=== PATIENT | male | born 1965 | race Caucasian/White ===

== ENCOUNTER → 2023-03-18 08:31 | Outpatient (CLI) | payer OTHER, MEDICAID, SELFPAY ==
--- NOTE | 2023-03-18 08:33 | DI.RAD.S_ITS ---
PROCEDURE: XR SHOULDER RT MIN 2V INDICATIONS: RIGHT SHOULDER PAIN TECHNIQUE: 3 or views of the shoulder were acquired. COMPARISON: None. FINDINGS: Bones: No fractures or dislocations. Mild acromioclavicular joint osteoarthritis. No suspicious bony lesions. Visualized ribs appear intact. Soft tissues: No suspicious soft tissue calcifications. IMPRESSION: No acute bony abnormality. Dictated by: Ger Hui M.D. on 03/18/2023 at 10:30 Approved by: Ger Hui M.D. on 03/18/2023 at 10:30
--- NOTE | 2023-03-18 08:33 | DI.RAD.S_ITS ---
PROCEDURE: XR SHOULDER LT MIN 2V INDICATIONS: LEFT SHOULDER PAIN TECHNIQUE: 3 views of the shoulder were acquired. COMPARISON: [facility], CR, XR SHOULDER RT MIN 2V, 03/18/2023, 9:12. FINDINGS: Bones: No fractures or dislocations. Mild acromioclavicular joint osteoarthritis. No suspicious bony lesions. Visualized ribs appear intact. Soft tissues: No suspicious soft tissue calcifications. IMPRESSION: No acute bony abnormality. Dictated by: Ger Hui M.D. on 03/18/2023 at 10:30 Approved by: Ger Hui M.D. on 03/18/2023 at 10:31
== END ==
PROVIDERS: PCP Nurse Practitioner; Referring Provider Anesthesiology; Visit Provider Anesthesiology
DX: M19.011 Primary osteoarthritis, right shoulder (principal); M19.012 Primary osteoarthritis, left shoulder; M25.512 Pain in left shoulder; M25.511 Pain in right shoulder
CPT/HCPCS: 73030; 99214

== ENCOUNTER → 2023-06-03 12:20 | Outpatient (CLI) | payer OTHER, MEDICAID, SELFPAY ==
--- NOTE | 2023-06-03 12:24 | DI.RAD.S_ITS ---
PROCEDURE: XR HIP W PEL IF DONE LT MIN 4V INDICATIONS: Bilateral hip pain TECHNIQUE: AP pelvis and lateral view of the hip acquired. COMPARISON: None. FINDINGS: Bones: No fracture or subluxation is seen. Mild DJD of both hips noted. Pelvic ring appears intact Soft tissues: No suspicious soft tissue densities. IMPRESSION: No acute findings Mild DJD of the hips Dictated by: Grayson Flowers M.D. on 06/03/2023 at 15:06 Approved by: Grayson Flowers M.D. on 06/03/2023 at 15:07
[2023-06-03 13:37] LABS: Add Manual Diff / Slide Review NO; Basophils Absolute Auto 0 /uL (0-100); Basophils Percent Auto 0.5 % (0-2); Eosinophils Absolute Auto 100 /uL (0-450); Eosinophils Percent Auto 1.3 % (2-4); Hematocrit 41.7 % (41-53); Hemoglobin 14.3 g/dL (13.5-17.5); Lymphocytes Absolute Auto 1700 /uL (1100-4500); Lymphocytes Percent Auto 30.6 % (25-40); Mean Corpuscular HGB Conc 34.3 % (30-36); Mean Corpuscular Hemoglobin 29.8 PG (26-34); Mean Corpuscular Volume 86.9 fL (80-100); Monocytes Absolute Auto 600 /uL (0-900); Monocytes Percent Auto 10.3 % (3-14); Neutrophils Absolute Auto 3100 /uL (1500-7000); Neutrophils Percent Auto 57.3 % (50-75); Platelet Count 171 X10^3/uL (150-400); Red Cell Distribution Width 13.5 % (11.6-14.8); White Blood Cell Count 5.4 X10^3/uL (4.5-11.0)
[2023-06-03 14:04] LABS: Alanine Aminotransferase 29 IU/L (<50); Albumin 4.7 g/dL (3.5-5.0); Albumin Globulin Ratio 1.5 (1.0-2.8); Alkaline Phosphatase 49 U/L (38-126); Aspartate Aminotransferase 43 IU/L (17-59); BUN Creatinine Ratio 21.8 (6-22); Bilirubin Total 0.6 mg/dL (0.2-1.3); Blood Urea Nitrogen 24 mg/dL (9-20); Calcium 9.8 mg/dL (8.4-10.2); Carbon Dioxide 22 mmol/L (22-32); Chloride 108 mmol/L (98-107); Cholesterol 156 mg/dL (140-199); Estimated Glomerular Filt Rate > 60 mL/min (>60); Globulin 3.2 g/dL (1.7-4.1); Glucose 126 mg/dL (70-100); HDL Cholesterol 39 mg/dL (40-60); HEMOLYSIS < 15 (0-50); LDL Cholesterol Calculated 83 mg/dL (<100); Potassium 4.3 mmol/L (3.4-5.1); Sodium 139 mmol/L (137-145); Total Protein 7.9 g/dL (6.3-8.2); Triglycerides 168 mg/dL (35-150)
[2023-06-03 14:14] LABS: Free T3, Triiodothyronine Free 4.29 pg/mL (2.77-5.27)
[2023-06-03 14:27] LABS: Thyroid Stimulating Hormone 2.72 uIU/mL (0.47-4.68)
[2023-06-03 14:29] LABS: Prostate Specific Antigen Scrn 1.47 ng/mL (0.1-4.0)
[2023-06-03 16:19] LABS: Creatinine Urine Random 169.2 mg/dL
[2023-06-03 16:29] LABS: Microalbumin Urine Random < 0.6 mg/dL (0-1.6)
[2023-06-03 17:06] LABS: HIV 1 & 2 Ab/Ag 4th Gen Combo NEGATIVE (NEGATIVE); Hep C Virus Ab w/Reflex Quant NEGATIVE s/c (NEGATIVE)
== END ==
LOC: LAB 12:23
PROVIDERS: PCP Nurse Practitioner; Referring Provider Nurse Practitioner; Visit Provider Nurse Practitioner
DX: Z00.00 Encounter for general adult medical examination without abnormal findings (principal); Z11.4 Encounter for screening for human immunodeficiency virus [HIV]; Z11.59 Encounter for screening for other viral diseases; Z12.5 Encounter for screening for malignant neoplasm of prostate; M25.551 Pain in right hip; M25.552 Pain in left hip
CPT/HCPCS: 36415; 73522; 80053; 80061; 82043; 82570; 84439; 84443; 84481; 85025; 86803; 87389; G0103

== ENCOUNTER 2023-06-22 08:00 | Emergency (ER) | payer OTHER, MEDICAID, SELFPAY ==
[2023-06-22 08:16] VITALS: BP 135/83; PULSE 72; RESP 18; TEMP 37; O2SAT 97
--- NOTE | 2023-06-22 08:21 | ED_ITS ---
HPI - General Adult General Chief complaint: Shortness of Breath/Dyspnea Stated complaint: L rib side pain when breathing/standing Time Seen by Provider: 06/22/23 08:14 History of Present Illness HPI narrative: Patient here for waxing and waning chronic daily left lower rib pain anteriorly. Patient states this pain has been there daily since 2007 when he slipped on//ice and landed full weight on left anterior ribs top of steps. He states he had x-rays and CT scans at that time, no broken bones. However in the past many weeks pain has progressed and gotten worse. He has not done anything to make it worse. No known injury recently, no repetitive stress or movement. When he do es walk/exercise he gets spasms in this area. It is reproducible, again reproducible. Denies any chest pain. He has not tried any medications for this. He did see primary care, Dr. Catai fonseca 2 weeks ago for 1st visit and wellness check for establishing a primary care. He moved here from [facility]. Laboratory studies were done and essentially unremarkable. I have reviewed them. Patient had CBC and CMP. Please see medical chart from that visit/laboratory results. Denies history of cancer Related Data Home Medications Medication Instructions Recorded Confirmed [facility] Remedy See Rx Instructions .Route .COMPLEX 03/03/23 06/30/23 acetaminophen 500 mg tablet 1,000 mg PO TID PRN pain 03/03/23 06/30/23 (Tylenol Extra Strength) ibuprofen 400 mg tablet 400 mg PO Q8H PRN pain 03/03/23 06/30/23 Previous Rx's Medication Instructions Recorded baclofen 5 mg tablet 5 mg PO BEDTIME #90 tabs 03/03/23 cetirizine 10 mg tablet (Allergy 10 mg PO DAILY #90 tabs 03/03/23 Relief (cetirizine)) fluticasone propionate 50 1 spray intranasal DAILY #16 grams 05/31/23 mcg/actuation nasal spray,suspension Disabled Parking Permit See Rx Instructions .Route 06/03/23 .COMPLEX #1 ea hydrocodone 5 mg-acetaminophen 325 1 tab PO Q6H PRN pain #24 tabs 06/22/23 mg tablet lorazepam 0.5 mg tablet 0.5 mg PO TID PRN anxiety #30 tabs 06/22/23 dronabinol 10 mg capsule 10 mg PO TID PRN pain #90 caps 06/30/23 fenofibrate 160 mg tablet 160 mg PO DAILY #90 tabs 06/30/23 prednisone 10 mg tablets in a dose See Rx Instructions PO PER PKG DIR 06/30/23 pack #48 ea tamsulosin 0.4 mg capsule 0.4 mg PO BID #180 caps 06/30/23 Allergies Allergy/AdvReac Type Severity Reaction Status Date / Time No Known Drug Allergies Allergy Unverified 06/10/23 16:05 Review of Systems Review of Systems Narrative: GENERAL: negative chills, fatigue, malaise, fever, sweats. HEENT: negative sinus pain, ear pain, sore throat RESPIRATORY: negative dyspnea, cough CARDIOVASCULAR: negative chest pain, palpitations GASTROINTESTINAL: negative nausea, vomiting, abdominal pain : negative dysuria, frequency, hematuria MUSCULOSKELETAL: Positive muscle or bony pain SKIN: negative rash, skin lesions NEUROLOGIC: negative weakness, numbness ROS Unobtainable: All systems reviewed & are unremarkable except as noted in HPI and below Patient History Medical History Suspected lung cancer Bilateral hip pain Greater trochanteric bursitis of both hips Right hip pain Left hip pain Arthritis of left acromioclavicular joint Impingement of right shoulder Bilateral shoulder pain Social History Smoking Status: Former smoker Exam Narrative Exam Narrative: GENERAL: in no distress, not toxic not dyspneic HEAD: Normocephalic. EYES: Pupils equal round ENT: Mucous membranes moist. NECK: Trachea midline. CARDIOVASCULAR: Regular rate and rhythm RESPIRATORY: Clear to auscultation. Breath sounds equal bilaterally. No wheezes, rales, or rhonchi. There is reproducible left lower anterior rib tenderness. It is the last rib border on left anteriorly. No pain with deep breath. No crepitus. No CVA tenderness. GASTROINTESTINAL: Abdomen soft, non-tender, abdomen is soft, nontender. No left upper quadrant tenderness on deep palpation. Bowel sounds are present. No peritoneal signs. EXTREMITIES: No gross deformities. BACK: No flank tenderness. NEURO: AOx4. SKIN: Warm and dry PSYCH: Not anxious, is cooperative Initial Vital Signs Initial Vital Signs: Vital Signs Temperature 98.6 F 06/22/23 08:16 Pulse Rate 72 06/22/23 08:16 Respiratory Rate 18 06/22/23 08:16 Blood Pressure 135/83 06/22/23 08:16 Pulse Oximetry 97 06/22/23 08:16 Oxygen Delivery Method Room Air 06/22/23 08:16 Course Orders Ordered: Discontinued Medications Ketorolac Tromethamine (Ketorolac 30 Mg/Ml Vial) 30 mg IM NOW ONE Stop: 06/22/23 08:23 Last Admin: 06/22/23 08:28 Dose: 30 mg Documented By: RICHARD Vital Signs Vital signs: Vital Signs - 8 hr 06/22/23 08:16 06/22/23 09:25 06/22/23 09:26 Temperature 98.6 F Pulse Rate 72 64 Respiratory Rate 18 Blood Pressure 135/83 141/80 H Pulse Oximetry 97 96 Oxygen Delivery Method Room Air Room Air 06/22/23 09:26 Temperature Pulse Rate 64 Respiratory Rate 18 Blood Pressure Pulse Oximetry 96 Oxygen Delivery Method Room Air Medical Decision Making Imaging Data CT chest abdomen pelvis: Radiologist's Impression: [place] [address] CT Scan Report Signed Patient: Asher Hernández MR#: [id number] : 1965 Acct:[id number] Age/Sex: 58 / M Date of Service: 06/22/23 Loc: ED Accession Number: [id number] Procedure: CT chest abd pel wo con Ordering Provider: Bijan Beckford MD PROCEDURE: CT CHEST ABD PEL WO CON INDICATIONS: Left lower rib pain upper left abdominal pain TECHNIQUE: After the administration of oral contrast, 5 mm thick sections acquired from the lung apices to the symphysis pubis. 5 mm thick coronal and sagittal reformats acquired, with additional 7 mm coronal MIP reformats through the lungs. For radiation dose reduction, the following was used: automated exposure control, adjustment of mA and/or kV according to patient size. COMPARISON: None. FINDINGS: Image quality: Diagnostic. CHEST: Lower Neck: No enlarged lymph nodes. Thyroid: No thyroid nodules which require sonographic follow up, per consensus guidelines. Axillae: No enlarged lymph nodes. Chest Wall: Unremarkable. Bones: Unremarkable. Lungs and Pleura: There are multiple pulmonary nodules present. All nodules will be described on series 5. 1. Small spiculated mass, right apex, measuring 11 mm in diameter. Suspect primary bronchogenic carcinoma. Reference image 52. 2. 3 mm pulmonary nodule, right apex, image 55. 3. 3 mm right upper lobe pulmonary nodule, image 123. 4. 3 mm Paula fissural nodule, right lower lobe, image 134. 5. 6 mm pulmonary nodule, right lower lobe, image 208. 6. 2 mm pulmonary nodule, left upper lobe, image 65. There is mild emphysematous change. No focal airspace consolidation. Heart: Heart size is normal. No pericardial effusion. Thoracic Vessels: The aorta and pulmonary arteries demonstrate normal size. Mediastinum and Soraya: No enlarged lymph nodes. Esophagus: No wall thickening. No hiatal hernia. ABDOMEN: Liver: No solid mass. Gallbladder: No radiopaque gallstones or wall thickening. Biliary ducts: No biliary dilation. Pancreas: No ductal dilation. There are multiple small poorly defined low- density lesions present in the pancreas. Spleen: Borderline splenomegaly. Adrenal Glands: No adrenal nodules. Kidneys and Ureters: No hydronephrosis. No solid mass. No complex renal cystic lesion which requires follow up. Stomach and Bowel: Normal colonic caliber, without significant wall thickening. Peritoneum: No abnormal intraperitoneal fluid. No free air. Ventral Wall: No hernia. Abdominal Nodes: No retroperitoneal or mesenteric adenopathy by size criteria. Vessels: Aorta and inferior vena cava are normal in size. PELVIS: Pelvic Organs: Unremarkable. Bladder: Unremarkable. Pelvic Nodes: No enlarged lymph nodes. Miscellaneous: No inguinal hernias are seen. Bones: No aggressive osseous abnormality. Canal stenosis at L2-L3 and L3-L4. IMPRESSION: 1. There is mild centrilobular emphysema. 2. Findings are highly suspicious for a 1.1 cm primary bronchogenic carcinoma of the right apex. 3. Multiple other small indeterminate bilateral pulmonary nodules are identified. 4. No bony lesion identified. 5. Multiple small ill-defined low-density lesions in the pancreas. Comment: Recommend nonemergent PET-CT. Also recommend nonemergent pancreas protocol CT or MRI to evaluate the pancreas, as well as evaluate the liver in a patient with potential malignancy. Dictated by: Pa Galicia M.D. on 06/22/2023 at 9:10 Approved by: Pa Galicia M.D. on 06/22/2023 at 9:22 [facility] Narrative Medical decision making narrative: Patient here for waxing and waning chronic daily left lower rib pain anteriorly. Patient states this pain has been there daily since 2007 when he slipped on//ice and landed full weight on left anterior ribs top of steps. He states he had x-rays and CT scans at that time, no broken bones. However in the past many weeks pain has progressed and gotten worse. He has not done anything to make it worse. No known injury recently, no repetitive stress or movement. When he does walk/exercise he gets spasms in this area. It is reproducible, again reproducible. Denies any chest pain. He has not tried any medications for this. He did see primary care, Dr. Catia fonseca 2 weeks ago for 1st visit and wellness check for establishing a primary care. He moved here from [facility]. Laboratory studies were done and essentially unremarkable. I have reviewed them. Patient had CBC and CMP. Please see medical chart from that visit/laboratory results. Denies history of cancer After history and exam Toradol CT chest abdomen pelvis without contrast. No blood work indicated at this time. Just had 2 weeks ago and unremarkable. appropriate for noncontrast CT MDM Medical records reviewed: Patient labs from June 03 2023 Differential considered: Includes but not limited to lytic lesion metastatic bone cancer, costochondritis, chronic rib pain secondary to trauma Lab Test results independently reviewed as above. Pertinent findings: Laboratory results CBC CMP from June 03, 2023 from primary care visit Imaging studies independently reviewed: CT abdomen pelvis concerning for bronchogenic carcinoma of the lung Consultations: 9:[address] Kvng Wylie, oncology services. I will give referral to him and primary care Catia fonseca will also need to give referral for his services. No blood work indicated this time. Patient will need outpatient PET scan. Treatments: Toradol Re-evaluations: 9:40 a.m.. Reviewed results with patient of CT imaging concerning for lung cancer on the right side. Incidental finding as his pain was on the left side. At this time, he understands further workup will be needed for more detailed information. His is a nurse. They will call primary care for referral to Dr. Wylie, oncology services. I have placed referral as well. I will prescribe pain medication as well. Return precautions reviewed. He does understand he will need extensive outpatient workup. No further workup indicated at this time in the emergency department. He will need a PET scan. He does understand this is concerning for lung cancer. He did stop smoking cigarettes in 1999. Discussion: Appropriate for discharge home. No blood work indicated this time. Oncology service was contacted. He does have primary care to help for referral and further outpatient workup for lung cancer. Return precautions reviewed. He desires discharge home. Appropriate for short course of opiate pain medication for likely cancer related pain Diagnosis: Rib pain/lung mass Discharge Plan Departure Patient Disposition: Home Clinical Impression: Rib pain on left side, Mass of right lung Instructions: DI for Lung Cancer Activity Restrictions/Additional Instructions: Your CT scan results reveal concern for lung cancer on the right side. The pain on the left rib does not show any bone cancer. Short course of pain medication has been provided for you. Please please please call your family doctor for referral to Dr. Kvng Wylie, oncology services. We have placed a referral in as well. However family doctor may need to do this as well. More extensive testing and blood work and PET scan will be needed for further information and details. Do not smoke. Return if worse if any questions or concerns. Prescriptions: New hydrocodone-acetaminophen 5-325 mg tablet 1 tab PO Q6H PRN (Reason: pain) Qty: 24 0RF No Action fluticasone propionate 50 mcg/actuation spray,suspension 1 spray intranasal DAILY Qty: 16 3RF Rx Instructions: administer into each nostril daily lorazepam 0.5 mg tablet 0.5 mg PO TID PRN (Reason: anxiety) Qty: 30 0RF Disabled Parking Permit See Rx Instructions .ROUTE .COMPLEX Qty: 1 0RF Rx Instructions: Temporary disabled parking placard baclofen 5 mg tablet 5 mg PO BEDTIME Qty: 90 3RF Rx Instructions: Take 1 tab at bedtime daily ibuprofen 400 mg tablet 400 mg PO Q8H PRN (Reason: pain) acetaminophen [Tylenol Extra Strength] 500 mg tablet 1,000 mg PO TID PRN (Reason: pain) Rx Instructions: NTE 3000mg/24 hours cetirizine [Allergy Relief (cetirizine)] 10 mg tablet 10 mg PO DAILY Qty: 90 3RF Rx Instructions: Take daily for allergies [facility] Rem[facility] See Rx Instructions .ROUTE .COMPLEX Rx Instructions: Per package instructions - Pastilles OR Liquid; dronabinol 10 mg capsule 10 mg PO TID PRN (Reason: pain) Qty: 90 3RF Rx Instructions: Take 1 cap three times per day as needed for pain, equivalent to Nabilone dosing. prednisone 10 mg tablets,dose pack See Rx Instructions PO PER PKG DIR Qty: 48 0RF Rx Instructions: Days 1-4: 40 mg PO before breakfast Days 5-8: 30 mg PO before breakfast Days 9-12: 20 mg PO before breakfast Days 13-17: 10 mg PO before breakfast, on day 13 it is okay to re-start Advil, Ibuprofen, Aleve, Naproxen, or other non-steroidal anti-inflammatory medication) Days 18-19: 5 mg per day (only 0.5 tablet per day) tamsulosin 0.4 mg capsule 0.4 mg PO BID Qty: 180 3RF fenofibrate 160 mg tablet 160 mg PO DAILY Qty: 90 3RF Referrals: Catia Fonseca ARNP [Primary Care Provider] - Kvng Wylie MD [Physician] - Stand Alone Forms: Patient Portal/API
[2023-06-22] MEDS: KETOROLAC 30 MG/ML VIAL IM (08:28)
[2023-06-22 09:25] VITALS: PULSE 64; O2SAT 96
[2023-06-22 09:26] VITALS: BP 141/80; PULSE 64; RESP 18; O2SAT 96
== END 2023-06-22 09:54 | disposition home or self-care (01) ==
PROVIDERS: Emergency Provider Emergency Medicine; PCP Nurse Practitioner
DX: R07.81 Pleurodynia (principal); R91.8 Other nonspecific abnormal finding of lung field
CPT/HCPCS: 71250; 74176; 96372; 99284; J1885

== ENCOUNTER → 2023-07-13 15:49 | Outpatient (CLI) | payer OTHER, MEDICAID, SELFPAY ==
--- NOTE | 2023-07-13 15:51 | DI.CT.S_ITS ---
PROCEDURE: CT ABDOMEN PANCREATIC PROTOCOL INDICATIONS: Suspicious masses liver and pancreas, abnormal CT TECHNIQUE: Both before and after the administration of intravenous contrast, 3 mm thick pancreatic-phase images acquired from the diaphragm to the iliac crests. 3 mm thick coronal and sagittal reformats were performed. For radiation dose reduction, the following was used: automated exposure control, adjustment of mA and/or kV according to patient size. COMPARISON: Merged With [facility], CT, CT CHEST ABD PEL WO CON, 06/22/2023, 8:27. FINDINGS: Image quality: Diagnostic. Lower chest: Unremarkable. ABDOMEN: Pancreas: Pancreatic duct is not well seen. Abnormal hypoenhancement of the body and tail the pancreas. Trace peripancreatic stranding. Small hypoenhancing focus in the body of the pancreas, (9/49). It additional ill-defined hypoenhancing focus at the pancreatic neck, (9/48). The portal vein confluence is attenuated. Liver: No solid mass. Gallbladder: No radiopaque gallstones or wall thickening. Biliary ducts: No biliary dilation. Adrenal Glands: No nodules. Spleen: Size is within normal limits. Kidneys and Ureters: No hydronephrosis. No solid mass. No complex renal cystic lesion which requires follow up. Stomach and Bowel: Normal colonic caliber, without significant wall thickening. Peritoneum: No abnormal intraperitoneal fluid. No free air. Ventral Wall: No hernia. Abdominal Nodes: No retroperitoneal or mesenteric adenopathy by size criteria. Vessels: Aorta and inferior vena cava are normal in size. Bones: No aggressive osseous abnormality. IMPRESSION: 1. Hypoenhancement of the body and tail the pancreas. This could be due to pancreatitis. Recommend correlation with serum lipase. 2. Concern for hypoenhancing focus at the neck of the pancreas. The portal vein confluence is attenuated. This raises the possibility of an occult lesion. Additional small cysts suspected in the body of the pancreas. MRI pancreas would be helpful to further characterize this suspected cyst in the pancreatic duct. 3. No focal hepatic lesion demonstrated. No adenopathy. Dictated by: Stpehen Cook M.D. on 07/13/2023 at 23:04 Approved by: Stephen Cook M.D. on 07/13/2023 at 23:24
== END ==
PROVIDERS: PCP Nurse Practitioner; Referring Provider Nurse Practitioner; Visit Provider Nurse Practitioner
DX: K86.89 Other specified diseases of pancreas (principal); R68.89 Other general symptoms and signs; R91.8 Other nonspecific abnormal finding of lung field; C22.9 Malignant neoplasm of liver, not specified as primary or secondary
CPT/HCPCS: 74170; Q9967

== ENCOUNTER 2023-07-14 16:03 | Emergency (ER) | payer OTHER, MEDICAID, SELFPAY ==
[2023-07-14] VITALS (10 sets, daily range): BP systolic 119–150; BP diastolic 75–84; PULSE 53–72; RESP 13–21; TEMP 36.6; O2SAT 97–100; BMI 31.6
--- NOTE | 2023-07-14 16:33 | ED.GENADULT ---
HPI - General Adult <Alfonzo Mariee DO - Last Filed: 07/17/23 17:56> General Chief complaint: Abdominal Pain Stated complaint: sent by MD for pancreatitis Time Seen by Provider: 07/14/23 16:10 Source: patient Mode of arrival: Ambulatory History of Present Illness HPI narrative: Patient is a 58-year-old male. Is here for evaluation of potential pancreatitis. Patient was seen here in the emergency department approximately 4 weeks ago[address] Had a [address] scan of his chest abdomen and pelvis. Was complaining of left sided abdomen/left upper quadrant abdominal pain that actually has been present for many months/years. During that CT scan was noticed that he would findings on the CT scan that were concerning about lung cancer. He was scheduled for a PET scan later this week. He has not currently undergoing any treatment just in the workup face. He has had continued pain in his left upper abdomen. It is worse with eating. No change in bowel habits. No urinary symptoms. Some nausea but no vomiting. No fevers. Had a CT scan performed yesterday by his primary doctor. It showed findings that were somewhat concerning for pancreatitis versus an occult mass. He would normal LFTs but no lipase was drawn. He was sent to the emergency department today because of pancreatitis. Related Data Home Medications Medication Instructions Recorded Confirmed [facility] See Rx Instructions .Route .COMPLEX 03/03/23 07/14/23 acetaminophen 500 mg tablet 1,000 mg PO TID PRN pain 03/03/23 07/14/23 (Tylenol Extra Strength) ibuprofen 400 mg tablet 400 mg PO Q8H PRN pain 03/03/23 07/14/23 Previous Rx's Medication Instructions Recorded baclofen 5 mg tablet 5 mg PO BEDTIME #90 tabs 03/03/23 cetirizine 10 mg tablet (Allergy 10 mg PO DAILY #90 tabs 03/03/23 Relief (cetirizine)) fluticasone propionate 50 1 spray intranasal DAILY #16 grams 05/31/23 mcg/actuation nasal spray,suspension Disabled Parking Permit See Rx Instructions .Route 06/03/23 .COMPLEX #1 ea hydrocodone 5 mg-acetaminophen 325 1 tab PO Q6H PRN pain #24 tabs 06/22/23 mg tablet dronabinol 10 mg capsule 10 mg PO TID PRN pain #90 caps 06/30/23 fenofibrate 160 mg tablet 160 mg PO DAILY #90 tabs 06/30/23 prednisone 10 mg tablets in a dose See Rx Instructions PO PER PKG DIR 06/30/23 pack #48 ea tamsulosin 0.4 mg capsule 0.4 mg PO BID #180 caps 06/30/23 dronabinol 2.5 mg capsule 10 mg (4 x 2.5 mg) PO TID nausea 07/08/23 and vomiting 30 days #360 caps lorazepam 0.5 mg tablet 0.5 mg PO TID PRN anxiety #30 tabs 07/08/23 pantoprazole 20 mg tablet,delayed 20 mg PO DAILY #90 tabs 07/08/23 release hydrocodone 5 mg-acetaminophen 325 1 tab PO Q8H PRN pain #14 tabs 07/14/23 mg tablet hydromorphone 2 mg tablet 2 mg PO Q4-6H PRN pain #180 tabs 07/15/23 ondansetron 4 mg disintegrating See Rx Instructions .Route 07/15/23 tablet .COMPLEX PRN nausea and vomiting #180 tabs gabapentin 300 mg capsule 300 mg PO TID PRN pain #180 caps 07/16/23 hydromorphone 4 mg tablet 2 mg (1/2 x 4 mg) PO Q4-6H PRN 07/16/23 pain #90 tabs Allergies Allergy/AdvReac Type Severity Reaction Status Date / Time No Known Drug Allergies Allergy Unverified 06/10/23 16:05 Review of Systems <Alfonzo Mariee DO - Last Filed: 07/17/23 17:56> Review of Systems Narrative: See HPI Patient History <Alfonzo Mairee DO - Last Filed: 07/17/23 17:56> Medical History GERD (gastroesophageal reflux disease) Suspected lung cancer Bilateral hip pain Greater trochanteric bursitis of both hips Right hip pain Left hip pain Arthritis of left acromioclavicular joint Impingement of right shoulder Bilateral shoulder pain Social History Smoking Status: Former smoker Smoking Status: Former smoker tobacco type: cigarettes alcohol intake frequency: 0-2 drinks per day Substance Use Type: marijuana Exam <Alfonzo Mariee DO - Last Filed: 07/17/23 17:56> Initial Vital Signs Initial Vital Signs: Vital Signs Temperature 97.8 F 07/14/23 16:10 Pulse Rate 72 07/14/23 16:10 Respiratory Rate 16 07/14/23 16:10 Blood Pressure 125/82 07/14/23 16:10 Pulse Oximetry 99 07/14/23 16:10 Oxygen Delivery Method Room Air 07/14/23 16:10 Const General: cooperative and No ill appearing HENMT Head: normal to inspection and normocephalic Resp Effort & Inspection: normal respiratory effort Cardio Rate: regular rate GI Inspection: normal to inspection and non-distended Palpation: soft, No firm, No guarding and tender (Left upper quadrant) Skin General: no rashes or lesions noted Neuro General: patient alert and patient awake Extrem General: normal to inspection and capillary refill normal <Shabana Phillips MD - Last Filed: 07/15/23 00:57> Initial Vital Signs Initial Vital Signs: Vital Signs Temperature 97.8 F 07/14/23 16:10 Pulse Rate 72 07/14/23 16:10 Respiratory Rate 16 07/14/23 16:10 Blood Pressure 125/82 07/14/23 16:10 Pulse Oximetry 99 07/14/23 16:10 Oxygen Delivery Method Room Air 07/14/23 16:10 Course <Alfonzo Mariee DO - Last Filed: 07/17/23 17:56> Orders Ordered: Discontinued Medications Hydrocodone Bitart/Acetaminophen (Hydrocodone/Acet 10/325 Tablet) 1 tab PO NOW ONE Stop: 07/14/23 16:36 Last Admin: 07/14/23 16:55 Dose: 1 tab Documented By: SPF Hydrocodone Bitart/Acetaminophen (Hydrocodone/Acet 5/325 Prepack) 1 bottle MISC DIRECTED ONE Stop: 07/14/23 22:03 Last Admin: 07/14/23 22:14 Dose: 1 bottle Documented By: AB Alprazolam (Alprazolam 0.25 Mg Tablet) 0.25 mg PO NOW ONE Stop: 07/14/23 16:36 Last Admin: 07/14/23 16:55 Dose: 0.25 mg Documented By: SPF Droperidol (Droperidol 5 Mg/2 Ml Vial) 2.5 mg IV NOW ONE Stop: 07/14/23 21:56 Last Admin: 07/14/23 22:01 Dose: 2.5 mg Documented By: EDWARD Hydromorphone HCl (Hydromorphone 1 Mg Inj) 1 mg IV NOW ONE Stop: 07/14/23 17:53 Last Admin: 07/14/23 17:56 Dose: 1 mg Documented By: ANU Sodium Chloride (Normal Saline 0.9%) 1,000 mls @ 1,000 mls/hr IV BOLUS ONE Stop: 07/14/23 17:12 Last Infusion: 07/14/23 17:56 Dose: Infused Documented By: Admin: 07/14/23 17:00 Dose: 1,000 mls/hr Documented By: ANU Lorazepam (Lorazepam 2 Mg/Ml Inj) 2 mg IV NOW ONE Stop: 07/14/23 18:35 Last Admin: 07/14/23 19:40 Dose: 2 mg Documented By: RODRIGO Lorazepam (Lorazepam 2 Mg/Ml Inj) 1 mg IV NOW ONE Stop: 07/14/23 20:01 Last Admin: 07/14/23 20:04 Dose: 1 mg Documented By: EDWARD Ondansetron HCl (Ondansetron 4 Mg/2 Ml Inj) 4 mg IV NOW ONE Stop: 07/14/23 16:52 Last Admin: 07/14/23 16:54 Dose: 4 mg Documented By: ANU Vital Signs Vital signs: Vital Signs - 8 hr 07/14/23 17:00 07/14/23 17:00 07/14/23 17:30 Pulse Rate 53 L 53 L Respiratory Rate 13 14 Blood Pressure 124/75 Pulse Oximetry 97 98 Oxygen Delivery Method Room Air 07/14/23 18:00 07/14/23 18:00 07/14/23 19:29 Pulse Rate 53 L 63 Respiratory Rate 14 21 Blood Pressure 134/81 Pulse Oximetry 100 99 Oxygen Delivery Method Room Air Room Air 07/14/23 19:30 07/14/23 19:30 07/14/23 21:45 Pulse Rate 57 L Respiratory Rate 17 Blood Pressure 119/75 139/82 Pulse Oximetry 99 Oxygen Delivery Method 07/14/23 21:45 07/14/23 22:00 07/14/23 22:00 Pulse Rate 53 L 59 L Respiratory Rate 18 18 Blood Pressure 150/84 H Pulse Oximetry 98 97 Oxygen Delivery Method <Shabana Phillips MD - Last Filed: 07/15/23 00:57> Orders Ordered: Discontinued Medications Hydrocodone Bitart/Acetaminophen (Hydrocodone/Acet 10/325 Tablet) 1 tab PO NOW ONE Stop: 07/14/23 16:36 Last Admin: 07/14/23 16:55 Dose: 1 tab Documented By: ANU Hydrocodone Bitart/Acetaminophen (Hydrocodone/Acet 5/325 Prepack) 1 bottle MISC DIRECTED ONE Stop: 07/14/23 22:03 Last Admin: 07/14/23 22:14 Dose: 1 bottle Documented By: Alprazolam (Alprazolam 0.25 Mg Tablet) 0.25 mg PO NOW ONE Stop: 07/14/23 16:36 Last Admin: 07/14/23 16:55 Dose: 0.25 mg Documented By: ANU Droperidol (Droperidol 5 Mg/2 Ml Vial) 2.5 mg IV NOW ONE Stop: 07/14/23 21:56 Last Admin: 07/14/23 22:01 Dose: 2.5 mg Documented By: EDWARD Hydromorphone HCl (Hydromorphone 1 Mg Inj) 1 mg IV NOW ONE Stop: 07/14/23 17:53 Last Admin: 07/14/23 17:56 Dose: 1 mg Documented By: ANU Sodium Chloride (Normal Saline 0.9%) 1,000 mls @ 1,000 mls/hr IV BOLUS ONE Stop: 07/14/23 17:12 Last Infusion: 07/14/23 17:56 Dose: Infused Documented By: Admin: 07/14/23 17:00 Dose: 1,000 mls/hr Documented By: ANU Lorazepam (Lorazepam 2 Mg/Ml Inj) 2 mg IV NOW ONE Stop: 07/14/23 18:35 Last Admin: 07/14/23 19:40 Dose: 2 mg Documented By: RODRIGO Lorazepam (Lorazepam 2 Mg/Ml Inj) 1 mg IV NOW ONE Stop: 07/14/23 20:01 Last Admin: 07/14/23 20:04 Dose: 1 mg Documented By: EDWARD Ondansetron HCl (Ondansetron 4 Mg/2 Ml Inj) 4 mg IV NOW ONE Stop: 07/14/23 16:52 Last Admin: 07/14/23 16:54 Dose: 4 mg Documented By: ANU Vital Signs Vital signs: Vital Signs - 8 hr 07/14/23 17:00 07/14/23 17:00 07/14/23 17:30 Pulse Rate 53 L 53 L Respiratory Rate 13 14 Blood Pressure 124/75 Pulse Oximetry 97 98 Oxygen Delivery Method Room Air 07/14/23 18:00 07/14/23 18:00 07/14/23 19:29 Pulse Rate 53 L 63 Respiratory Rate 14 21 Blood Pressure 134/81 Pulse Oximetry 100 99 Oxygen Delivery Method Room Air Room Air 07/14/23 19:30 07/14/23 19:30 07/14/23 21:45 Pulse Rate 57 L Respiratory Rate 17 Blood Pressure 119/75 139/82 Pulse Oximetry 99 Oxygen Delivery Method 07/14/23 21:45 07/14/23 22:00 07/14/23 22:00 Pulse Rate 53 L 59 L Respiratory Rate 18 18 Blood Pressure 150/84 H Pulse Oximetry 98 97 Oxygen Delivery Method Medical Decision Making <Alfonzo Mariee, - Last Filed: 07/17/23 17:56> Lab Data Lab results reviewed: Yes I reviewed the patient's lab results. 07/14/23 16:35 07/14/23 16:35 Labs: Lab Results 07/14/23 Range/Units 16:35 WBC 6.0 (4.5-11.0) X10^3/uL RBC 4.78 (4.5-5.9) X10^6/uL Hgb 14.1 (13.5-17.5) g/dL Hct 41.4 (41-53) % MCV 86.6 (80-100) fL MCH 29.5 (26-34) PG MCHC 34.1 (30-36) % RDW 14.0 (11.6-14.8) % Plt Count 157 (150-400) X10^3/uL Neut % (Auto) 62.0 (50-75) % Lymph % (Auto) 26.4 (25-40) % Tucker % (Auto) 10.1 (3-14) % Eos % (Auto) 1.1 L (2-4) % Baso % (Auto) 0.4 (0-2) % Neut # (Auto) 3700 (8394-0918) /uL Lymph # (Auto) 1600 (4850-0168) /uL Tucker # (Auto) 600 (0-900) /uL Eos # (Auto) 100 (0-450) /uL Baso # (Auto) 0 (0-100) /uL Sodium 138 (137-145) mmol/L Potassium 4.5 (3.4-5.1) mmol/L Chloride 109 H (98-107) mmol/L Carbon Dioxide 24 (22-32) mmol/L BUN 19 (9-20) mg/dL Creatinine 0.93 (0.66-1.25) mg/dL Estimated GFR > 60 (>60) mL/min BUN/Creatinine Ratio 20.4 (6-22) Glucose 108 H (70-100) mg/dL Calcium 9.2 (8.4-10.2) mg/dL Total Bilirubin 0.8 (0.2-1.3) mg/dL AST 36 (17-59) IU/L ALT 26 (<50) IU/L Alkaline Phosphatase 40 (38-126) U/L Total Protein 7.5 (6.3-8.2) g/dL Albumin 4.5 (3.5-5.0) g/dL Globulin 3.0 (1.7-4.1) g/dL Albumin/Globulin Ratio 1.5 (1.0-2.8) Lipase 553 H (23-300) U/L Imaging Data US - abdomen: Radiologist's Impression: PROCEDURE: US ABDOMEN LIMITED INDICATIONS: Pancreatitis versus pancreatic mass on CT scan TECHNIQUE: Real-time focused scanning was performed of the abdomen, with image documentation. COMPARISON: [facility], CT, CT ABDOMEN PANCREATIC PROTOCOL, 07/13/2023, 16:24. [facility], CT, CT CHEST ABD PEL WO CON, 06/22/2023, 8:27. FINDINGS: Liver measures 15.5 cm with mild increased steatosis. Gallbladder is unremarkable. Wall thickness measures 1.7 mm. Common bile duct measures 2.3 mm. IMPRESSION: Mild hepatic steatosis. Pancreas is not visualized. MDM Narrative Medical decision making narrative: Patient does have left upper quadrant abdominal pain that does seem to be getting worse with eating. His lipase is slightly elevated but not completely convincing for pancreatitis. Review of the CT scan yesterday was not definitive for pancreatitis. Given his current lung issues there is a higher concern that this is an occult lesion. His right upper quadrant ultrasound today is unremarkable. His LFTs are unremarkable. Plan will be to obtain an MR with pancreatic protocol. Care turned over to Dr. Phillpis to follow-up and disposition. <Shabana Phillips MD - Last Filed: 07/15/23 00:57> Lab Data Labs: Lab Results 07/14/23 Range/Units 16:35 WBC 6.0 (4.5-11.0) X10^3/uL RBC 4.78 (4.5-5.9) X10^6/uL Hgb 14.1 (13.5-17.5) g/dL Hct 41.4 (41-53) % MCV 86.6 (80-100) fL MCH 29.5 (26-34) PG MCHC 34.1 (30-36) % RDW 14.0 (11.6-14.8) % Plt Count 157 (150-400) X10^3/uL Neut % (Auto) 62.0 (50-75) % Lymph % (Auto) 26.4 (25-40) % Tucker % (Auto) 10.1 (3-14) % Eos % (Auto) 1.1 L (2-4) % Baso % (Auto) 0.4 (0-2) % Neut # (Auto) 3700 (6940-1217) /uL Lymph # (Auto) 1600 (3790-8559) /uL Tucker # (Auto) 600 (0-900) /uL Eos # (Auto) 100 (0-450) /uL Baso # (Auto) 0 (0-100) /uL Sodium 138 (137-145) mmol/L Potassium 4.5 (3.4-5.1) mmol/L Chloride 109 H (98-107) mmol/L Carbon Dioxide 24 (22-32) mmol/L BUN 19 (9-20) mg/dL Creatinine 0.93 (0.66-1.25) mg/dL Estimated GFR > 60 (>60) mL/min BUN/Creatinine Ratio 20.4 (6-22) Glucose 108 H (70-100) mg/dL Calcium 9.2 (8.4-10.2) mg/dL Total Bilirubin 0.8 (0.2-1.3) mg/dL AST 36 (17-59) IU/L ALT 26 (<50) IU/L Alkaline Phosphatase 40 (38-126) U/L Total Protein 7.5 (6.3-8.2) g/dL Albumin 4.5 (3.5-5.0) g/dL Globulin 3.0 (1.7-4.1) g/dL Albumin/Globulin Ratio 1.5 (1.0-2.8) Lipase 553 H (23-300) U/L MDM Narrative Medical decision making narrative: Patient does have left upper quadrant abdominal pain that does seem to be getting worse with eating. His lipase is slightly elevated but not completely convincing for pancreatitis. Review of the CT scan yesterday was not definitive for pancreatitis. Given his current lung issues there is a higher concern that this is an occult lesion. His right upper quadrant ultrasound today is unremarkable. His LFTs are unremarkable. Plan will be to obtain an MR with pancreatic protocol. Care turned over to Dr. Phillips to follow-up and disposition. Dr Phillips - MRCP reviewed, concerning for pancreatic neck mass concerning for malignancy. Discussed MRCP results with on-call GI at [facility] Dr. Simon, who stated that he could likely fit the patient in for an EUS on Wednesday after the patient receives his PET scan. He took down the patient's information in his planner scheduler will call the patient and his to make arrangements. Patient and informed of all lab and imaging findings at bedside, as well as Gastroenterology recommendations and plan. Pain medication sent home for symptom control overnight. ED return precautions discussed at bedside. Patient expressed understanding of the plan and is in agreement at this time. All questions answered at the time of discharge. Discharge Plan Departure Patient Disposition: Home Clinical Impression: Mass of head of pancreas, Abdominal pain, Elevated lipase Instructions: DI for Pancreaticobiliary Cancer Activity Restrictions/Additional Instructions: The MRI of your abdomen showed a mass at the head of your pancreas. This is concerning for malignancy, however this is not officially diagnosed without a biopsy. I spoke with on-call gastroenterology Dr. Simon, who will most likely be able to work you in to his schedule on Wednesday for evaluation after your PET scan. Prescriptions: New hydrocodone-acetaminophen 5-325 mg tablet 1 tab PO Q8H PRN (Reason: pain) Qty: 14 0RF No Action fluticasone propionate 50 mcg/actuation spray,suspension 1 spray intranasal DAILY Qty: 16 3RF Rx Instructions: administer into each nostril daily hydromorphone 2 mg tablet 2 mg PO Q4-6H PRN (Reason: pain) Qty: 180 0RF Hold Instructions: Home Medication placed on hold at Doctor's office Rx Instructions: Take 1 tab by mouth every 4-6 hours as needed for pain due to malignancy. EXEMPT ondansetron 4 mg tablet,disintegrating See Rx Instructions .ROUTE .COMPLEX PRN (Reason: nausea and vomiting) Qty: 180 3RF Rx Instructions: Take with Hydromorphone for the first few days of treatment, and every 6 hours as needed thereafter hydromorphone 4 mg tablet 2 mg PO Q4-6H PRN (Reason: pain) Qty: 90 0RF gabapentin 300 mg capsule 300 mg PO TID PRN (Reason: pain) Qty: 180 3RF Rx Instructions: 300mg TID as needed for breakthrough pain Disabled Parking Permit See Rx Instructions .ROUTE .COMPLEX Qty: 1 0RF Rx Instructions: Temporary disabled parking placard baclofen 5 mg tablet 5 mg PO BEDTIME Qty: 90 3RF Rx Instructions: Take 1 tab at bedtime daily ibuprofen 400 mg tablet 400 mg PO Q8H PRN (Reason: pain) acetaminophen [Tylenol Extra Strength] 500 mg tablet 1,000 mg PO TID PRN (Reason: pain) Rx Instructions: NTE 3000mg/24 hours cetirizine [Allergy Relief (cetirizine)] 10 mg tablet 10 mg PO DAILY Qty: 90 3RF Rx Instructions: Take daily for allergies [facility] See Rx Instructions .ROUTE .COMPLEX Rx Instructions: Per package instructions - Pastilles OR Liquid; dronabinol 10 mg capsule 10 mg PO TID PRN (Reason: pain) Qty: 90 3RF Rx Instructions: Take 1 cap three times per day as needed for pain, equivalent to Nabilone dosing. prednisone 10 mg tablets,dose pack See Rx Instructions PO PER PKG DIR Qty: 48 0RF Rx Instructions: Days 1-4: 40 mg PO before breakfast Days 5-8: 30 mg PO before breakfast Days 9-12: 20 mg PO before breakfast Days 13-17: 10 mg PO before breakfast, on day 13 it is okay to re-start Advil, Ibuprofen, Aleve, Naproxen, or other non-steroidal anti-inflammatory medication) Days 18-19: 5 mg per day (only 0.5 tablet per day) tamsulosin 0.4 mg capsule 0.4 mg PO BID Qty: 180 3RF fenofibrate 160 mg tablet 160 mg PO DAILY Qty: 90 3RF dronabinol 2.5 mg capsule 10 mg PO TID 30 Days Qty: 360 3RF Rx Instructions: Take 4 caps by mouth TID pantoprazole 20 mg tablet,delayed release (DR/EC) 20 mg PO DAILY Qty: 90 3RF lorazepam 0.5 mg tablet 0.5 mg PO TID PRN (Reason: anxiety) Qty: 30 0RF hydrocodone-acetaminophen 5-325 mg tablet 1 tab PO Q6H PRN (Reason: pain) Qty: 24 0RF Referrals: Catia Fonseca ARNP [Primary Care Provider] - Matthias Simon MD [Non-Staff] - Stand Alone Forms: Patient Portal/API
--- NOTE | 2023-07-14 16:35 | DI.US.S_ITS ---
PROCEDURE: US ABDOMEN LIMITED INDICATIONS: Pancreatitis versus pancreatic mass on CT scan TECHNIQUE: Real-time focused scanning was performed of the abdomen, with image documentation. COMPARISON: [facility], CT, CT ABDOMEN PANCREATIC PROTOCOL, 07/13/2023, 16:24. [facility], CT, CT CHEST ABD PEL WO CON, 06/22/2023, 8:27. FINDINGS: Liver measures 15.5 cm with mild increased steatosis. Gallbladder is unremarkable. Wall thickness measures 1.7 mm. Common bile duct measures 2.3 mm. IMPRESSION: Mild hepatic steatosis. Pancreas is not visualized. Dictated by: Rola Mckeon M.D. on 07/14/2023 at 17:53 Approved by: Rola Mckeon M.D. on 07/14/2023 at 17:54
--- NOTE | 2023-07-14 16:45 | PC.NURSE ---
repositioned patient with 3x pillows and 2x rolled up blankets under his neck.
[2023-07-14 16:46] LABS: Add Manual Diff / Slide Review NO; Basophils Absolute Auto 0 /uL (0-100); Basophils Percent Auto 0.4 % (0-2); Eosinophils Absolute Auto 100 /uL (0-450); Eosinophils Percent Auto 1.1 % (2-4); Hematocrit 41.4 % (41-53); Hemoglobin 14.1 g/dL (13.5-17.5); Lymphocytes Absolute Auto 1600 /uL (1100-4500); Lymphocytes Percent Auto 26.4 % (25-40); Mean Corpuscular HGB Conc 34.1 % (30-36); Mean Corpuscular Hemoglobin 29.5 PG (26-34); Mean Corpuscular Volume 86.6 fL (80-100); Monocytes Absolute Auto 600 /uL (0-900); Monocytes Percent Auto 10.1 % (3-14); Neutrophils Absolute Auto 3700 /uL (1500-7000); Platelet Count 157 X10^3/uL (150-400); Red Blood Cell Count 4.78 X10^6/uL (4.5-5.9)
[2023-07-14] MEDS: ONDANSETRON 4 MG/2 ML INJ IV (16:54)
[2023-07-14] MEDS: ALPRAZolam 0.25 MG TABLET PO (16:55)
[2023-07-14] MEDS: HYDROCODONE/ACET 10/325 TABLET 1 TAB PO (16:55)
[2023-07-14 16:59] LABS: Alanine Aminotransferase 26 IU/L (<50); Albumin 4.5 g/dL (3.5-5.0); Albumin Globulin Ratio 1.5 (1.0-2.8); Alkaline Phosphatase 40 U/L (38-126); Aspartate Aminotransferase 36 IU/L (17-59); BUN Creatinine Ratio 20.4 (6-22); Bilirubin Total 0.8 mg/dL (0.2-1.3); Blood Urea Nitrogen 19 mg/dL (9-20); Calcium 9.2 mg/dL (8.4-10.2); Carbon Dioxide 24 mmol/L (22-32); Chloride 109 mmol/L (98-107); Estimated Glomerular Filt Rate > 60 mL/min (>60); Glucose 108 mg/dL (70-100); HEMOLYSIS 29 (0-50); Lipase 553 U/L (23-300); Potassium 4.5 mmol/L (3.4-5.1); Sodium 138 mmol/L (137-145); Total Protein 7.5 g/dL (6.3-8.2)
[2023-07-14] MEDS: SODIUM CHLORIDE 0.9% 1,000 ML 1000 ML IV (17:00)
[2023-07-14] MEDS: HYDROMORPHONE 1 MG INJ IV (17:56)
--- NOTE | 2023-07-14 18:19 | DI.MRI.S_ITS ---
PROCEDURE: MR AB PANCREATIC/MRCP PROTOCOL INDICATIONS: eval for pancreatic masses TECHNIQUE: Coronal HASTE through the abdomen, axial 2-D FLASH in- and [id number], and breath-hold T2 FSE with fat saturation through the biliary system and pancreas. Oblique coronal and axial thin-slice HASTE, radial thick-slab HASTE centered on the extrahepatic bile ducts. Intravenous secretin: Not requested. COMPARISON: [facility], CT, CT ABDOMEN PANCREATIC PROTOCOL, 07/13/2023, 16:24. [facility], US, US ABDOMEN LIMITED, 07/14/2023, 17:05. FINDINGS: Image quality: Diagnostic. Gallbladder: No gallstones or wall thickening. Biliary ducts: No biliary dilation. Pancreas: No ductal dilation. 8 x 6 mm nonenhancing T2 hyperintense focus involving body of pancreas which was also seen on CT study likely represent a tiny cyst or IPMN. Ill-defined T2 hyperintense area involving pancreatic neck and measures in aggregate 1.6 x 1.7 cm in size series 5, image 19 with questionable peripheral contrast enhancement. There is mass effect on the adjacent portal vein at this level without definite intraluminal filling defect to suggest portal vein thrombosis. This is best seen on series 17, image 45. OTHER: Lung bases: Unremarkable. Liver: No solid mass. Spleen: There is splenomegaly, no discrete splenic lesion. Adrenal Glands: No adrenal nodules. Kidneys and Ureters: No hydronephrosis. No solid mass. No complex renal cystic lesion which requires follow up. Stomach and Bowel: There is no evidence of bowel obstruction or abnormal bowel wall thickening. No mesenteric fat stranding. Peritoneum: No abnormal intraperitoneal fluid. No free air. Ventral Wall: No hernia. Abdominal Nodes: No retroperitoneal or mesenteric adenopathy by size criteria. Vessels: Aorta and inferior vena cava are normal in size. Bones: No aggressive osseous abnormality. IMPRESSION: 1. Ill-defined T2-1 hypointense and T2 hyperintense area involving pancreatic neck measures up to 1.6 x 1.7 cm in size and show questionable peripheral enhancement and mild mass effect on the main portal vein at this level. This is concerning for and a call pancreatic neck mass. No pancreatic ductal dilatation. Additional cystic area involving pancreatic body and likely represent tiny cysts versus IPMN. Consider ERCP and possible biopsy of the pancreatic neck region for further evaluation. 2. Normal appearing gallbladder. No discrete hepatic lesion. No intra or extrahepatic biliary ductal dilatation. 3. No evidence of portal vein thrombosis. 4. Splenomegaly, no discrete splenic lesion. Dictated by: Ventura Swain M.D. on 07/14/2023 at 20:46 Approved by: Ventura Swain M.D. on 07/14/2023 at 21:00
[2023-07-14] MEDS: LORazepam 2 MG/ML INJ IV (19:40)
[2023-07-14] MEDS: LORazepam 2 MG/ML INJ 1 MG IV (20:04)
[2023-07-14] MEDS: DROPERIDOL 5 MG/2 ML VIAL 2.5 MG IV (22:01)
[2023-07-14] MEDS: HYDROCODONE/ACET 5/325 PREPACK 1 BOTTLE MISC (22:14)
== END 2023-07-14 22:19 | disposition home or self-care (01) ==
PROVIDERS: Emergency Provider Emergency Medicine; PCP Nurse Practitioner
DX: R10.12 Left upper quadrant pain (principal); K86.89 Other specified diseases of pancreas; R74.8 Abnormal levels of other serum enzymes
CPT/HCPCS: 36415; 74183; 76705; 80053; 83690; 85025; 96374; 96375; 99284; A9579; J1170; J1790; J2060; J2405

== ENCOUNTER 2023-07-15 11:42 | Emergency (ER) | payer OTHER, MEDICAID, SELFPAY ==
[2023-07-15 11:46] VITALS: BP 143/83; PULSE 64; RESP 18; TEMP 36.6; O2SAT 98; BMI 31.6
[2023-07-15] MEDS: SODIUM CHLORIDE 0.9% 1,000 ML 1000 ML IV (12:05)
[2023-07-15] MEDS: ONDANSETRON 4 MG/2 ML INJ IV (12:06)
[2023-07-15 12:15] LABS: Add Manual Diff / Slide Review NO; Basophils Absolute Auto 0 /uL (0-100); Basophils Percent Auto 0.2 % (0-2); Eosinophils Absolute Auto 0 /uL (0-450); Eosinophils Percent Auto 0.6 % (2-4); Hemoglobin 14.2 g/dL (13.5-17.5); Lymphocytes Absolute Auto 1000 /uL (1100-4500); Lymphocytes Percent Auto 16.4 % (25-40); Mean Corpuscular HGB Conc 33.7 % (30-36); Mean Corpuscular Hemoglobin 29.3 PG (26-34); Mean Corpuscular Volume 86.9 fL (80-100); Monocytes Absolute Auto 400 /uL (0-900); Monocytes Percent Auto 7.2 % (3-14); Neutrophils Absolute Auto 4700 /uL (1500-7000); Neutrophils Percent Auto 75.6 % (50-75); Platelet Count 165 X10^3/uL (150-400); Red Blood Cell Count 4.83 X10^6/uL (4.5-5.9); Red Cell Distribution Width 14.2 % (11.6-14.8); White Blood Cell Count 6.2 X10^3/uL (4.5-11.0)
[2023-07-15 12:23] LABS: Alanine Aminotransferase 25 IU/L (<50); Albumin 4.6 g/dL (3.5-5.0); Albumin Globulin Ratio 1.6 (1.0-2.8); Alkaline Phosphatase 43 U/L (38-126); Aspartate Aminotransferase 36 IU/L (17-59); BUN Creatinine Ratio 16.7 (6-22); Bilirubin Total 0.7 mg/dL (0.2-1.3); Blood Urea Nitrogen 17 mg/dL (9-20); Calcium 8.9 mg/dL (8.4-10.2); Carbon Dioxide 27 mmol/L (22-32); Chloride 106 mmol/L (98-107); Estimated Glomerular Filt Rate > 60 mL/min (>60); Globulin 2.8 g/dL (1.7-4.1); Glucose 158 mg/dL (70-100); HEMOLYSIS < 15 (0-50); Lipase 107 U/L (23-300); Potassium 4.3 mmol/L (3.4-5.1); Sodium 139 mmol/L (137-145); Total Protein 7.4 g/dL (6.3-8.2)
[2023-07-15 12:29] VITALS: BP 138/81; PULSE 68; RESP 16; O2SAT 97
[2023-07-15 14:30] VITALS: BP 133/81; PULSE 57; RESP 16; O2SAT 97
[2023-07-15] MEDS: HYDROMORPHONE 1 MG INJ IV (15:16)
--- NOTE | 2023-07-15 15:18 | ED_ITS ---
HPI - Abdominal Pain General Chief Complaint: Abdominal Pain Stated Complaint: can't hold anything down, l side abd pain Time Seen by Provider: 07/15/23 14:54 Source: patient Mode of arrival: Ambulatory Limitations: no limitations History of Present Illness HPI narrative: This is a 58-year-old with known lung mass and pancreatic mass who was seen yesterday had imaging including MRCP which showed pancreatic mass patient has been set up for follow-up tomorrow for ERCP with biopsy and evaluation at [facility]. He was discharged home with oral narcotic pain medication took those but then started vomiting feels like secondary more to the pain medication. They were able to get prescription sent in by primary care for Johanna but were concerned that they will not be able to keep up with the pain initially. The requesting a dose of pain medication, fluids and antiemetic here. They would like discharge home to follow up tomorrow at [facility]. Patient denies any fevers describes upper abdominal pain, some nausea vomiting difficulty keeping fluids down today. States has not had much of a bowel movement in the last 24 hours but passing gas. Denies any other symptoms. Related Data Home Medications Medication Instructions Recorded Confirmed [facility] Remedy See Rx Instructions .Route .COMPLEX 03/03/23 07/14/23 acetaminophen 500 mg tablet 1,000 mg PO TID PRN pain 03/03/23 07/14/23 (Tylenol Extra Strength) ibuprofen 400 mg tablet 400 mg PO Q8H PRN pain 03/03/23 07/14/23 Previous Rx's Medication Instructions Recorded baclofen 5 mg tablet 5 mg PO BEDTIME #90 tabs 03/03/23 cetirizine 10 mg tablet (Allergy 10 mg PO DAILY #90 tabs 03/03/23 Relief (cetirizine)) fluticasone propionate 50 1 spray intranasal DAILY #16 grams 05/31/23 mcg/actuation nasal spray,suspension Disabled Parking Permit See Rx Instructions .Route 06/03/23 .COMPLEX #1 ea hydrocodone 5 mg-acetaminophen 325 1 tab PO Q6H PRN pain #24 tabs 06/22/23 mg tablet dronabinol 10 mg capsule 10 mg PO TID PRN pain #90 caps 06/30/23 fenofibrate 160 mg tablet 160 mg PO DAILY #90 tabs 06/30/23 prednisone 10 mg tablets in a dose See Rx Instructions PO PER PKG DIR 06/30/23 pack #48 ea tamsulosin 0.4 mg capsule 0.4 mg PO BID #180 caps 06/30/23 dronabinol 2.5 mg capsule 10 mg (4 x 2.5 mg) PO TID nausea 07/08/23 and vomiting 30 days #360 caps lorazepam 0.5 mg tablet 0.5 mg PO TID PRN anxiety #30 tabs 07/08/23 pantoprazole 20 mg tablet,delayed 20 mg PO DAILY #90 tabs 07/08/23 release hydrocodone 5 mg-acetaminophen 325 1 tab PO Q8H PRN pain #14 tabs 07/14/23 mg tablet hydromorphone 2 mg tablet 2 mg PO Q4-6H PRN pain #180 tabs 07/15/23 ondansetron 4 mg disintegrating See Rx Instructions .Route 07/15/23 tablet .COMPLEX PRN nausea and vomiting #180 tabs Allergies Allergy/AdvReac Type Severity Reaction Status Date / Time No Known Drug Allergies Allergy Unverified 06/10/23 16:05 Review of Systems Review of Systems ROS Unobtainable: All systems reviewed & are unremarkable except as noted in HPI and below Patient History Medical History GERD (gastroesophageal reflux disease) Suspected lung cancer Bilateral hip pain Greater trochanteric bursitis of both hips Right hip pain Left hip pain Arthritis of left acromioclavicular joint Impingement of right shoulder Bilateral shoulder pain Social History Smoking Status: Former smoker Smoking Status: Former smoker tobacco type: cigarettes alcohol intake frequency: 0-2 drinks per day Substance Use Type: marijuana Exam Narrative Exam Narrative: GENERAL: Alert and oriented x three, well-appearing male in mild distress. HEENT: Head normocephalic, atraumatic, EOMI, pupils reactive, face symmetric, moist mucous membranes NECK: Supple, full range of motion CARDIOVASCULAR: Regular rate and rhythm without murmurs, rubs or gallops. RESPIRATORY: Breath sounds equal bilaterally, no wheezes rales or rhonchi. ABDOMEN: Soft, mild epigastric tenderness. Nondistended.. Normoactive bowel sounds all 4 quadrants. No guarding or rebound, rigidity, no mass : No CVA tenderness EXTREMITIES: Normal range of motion, no clubbing or edema. Neurovascularly intact NEUROLOGICAL: Cranial nerves II through XII grossly intact. Moving all extremities SKIN: Warm, dry, no petechiae, no rashes or lesions. Initial Vital Signs Initial Vital Signs: Vital Signs Temperature 98 F 07/15/23 11:46 Pulse Rate 64 07/15/23 11:46 Respiratory Rate 18 07/15/23 11:46 Blood Pressure 143/83 H 07/15/23 11:46 Pulse Oximetry 98 07/15/23 11:46 Oxygen Delivery Method Room Air 07/15/23 11:46 Course Orders Ordered: ED Orders 07/15/23 11:52 EKG-12 Lead Stat 07/15/23 11:55 Complete Blood Count AUTO DIFF Stat Comprehensive Metabolic Panel Stat Lipase Stat Discontinued Medications Hydromorphone HCl (Hydromorphone 1 Mg Inj) 1 mg IV NOW ONE Stop: 07/15/23 15:13 Last Admin: 07/15/23 15:16 Dose: 1 mg Documented By: CONOR Sodium Chloride (Normal Saline 0.9%) 1,000 mls @ 1,000 mls/hr IV BOLUS ONE Stop: 07/15/23 12:51 Last Infusion: 07/15/23 13:09 Dose: Infused Documented By: Admin: 07/15/23 12:05 Dose: 1,000 mls/hr Documented By: KELLI Ondansetron HCl (Ondansetron 4 Mg/2 Ml Inj) 4 mg IV NOW PRN PRN Reason: Nausea And Vomiting Last Admin: 07/15/23 12:06 Dose: 4 mg Documented By: KELLI Vital Signs Vital signs: Vital Signs - 8 hr 07/15/23 11:46 07/15/23 12:29 07/15/23 14:30 Temperature 98 F Pulse Rate 64 68 57 L Respiratory Rate 18 16 16 Blood Pressure 143/83 H 138/81 133/81 Pulse Oximetry 98 97 97 Oxygen Delivery Method Room Air Room Air 07/15/23 15:41 Temperature Pulse Rate 61 Respiratory Rate 12 Blood Pressure 134/79 Pulse Oximetry 99 Oxygen Delivery Method Room Air MDM - Abdominal Pain Lab Data 07/15/23 11:55 07/15/23 11:55 Labs: Lab Results 07/15/23 Range/Units 11:55 WBC 6.2 (4.5-11.0) X10^3/uL RBC 4.83 (4.5-5.9) X10^6/uL Hgb 14.2 (13.5-17.5) g/dL Hct 42.0 (41-53) % MCV 86.9 (80-100) fL MCH 29.3 (26-34) PG MCHC 33.7 (30-36) % RDW 14.2 (11.6-14.8) % Plt Count 165 (150-400) X10^3/uL Neut % (Auto) 75.6 H (50-75) % Lymph % (Auto) 16.4 L (25-40) % Jenkins % (Auto) 7.2 (3-14) % Eos % (Auto) 0.6 L (2-4) % Baso % (Auto) 0.2 (0-2) % Neut # (Auto) 4700 (9274-5593) /uL Lymph # (Auto) 1000 L (8547-2115) /uL Jenkins # (Auto) 400 (0-900) /uL Eos # (Auto) 0 (0-450) /uL Baso # (Auto) 0 (0-100) /uL Sodium 139 (137-145) mmol/L Potassium 4.3 (3.4-5.1) mmol/L Chloride 106 (98-107) mmol/L Carbon Dioxide 27 (22-32) mmol/L BUN 17 (9-20) mg/dL Creatinine 1.02 (0.66-1.25) mg/dL Estimated GFR > 60 (>60) mL/min BUN/Creatinine Ratio 16.7 (6-22) Glucose 158 H (70-100) mg/dL Calcium 8.9 (8.4-10.2) mg/dL Total Bilirubin 0.7 (0.2-1.3) mg/dL AST 36 (17-59) IU/L ALT 25 (<50) IU/L Alkaline Phosphatase 43 (38-126) U/L Total Protein 7.4 (6.3-8.2) g/dL Albumin 4.6 (3.5-5.0) g/dL Globulin 2.8 (1.7-4.1) g/dL Albumin/Globulin Ratio 1.6 (1.0-2.8) Lipase 107 D (23-300) U/L Point of care testing: Urine Dip Bedside Urine Glucose Negative Bedside Urine Bilirubin - Negative Bedside Urine Ketone - Negative Urine Specific Dunlevy 1.010 Bedside Urine Occult Blood - Negative Bedside Urine pH 7.0 Bedside Urine Protein - Negative Bedside Urine Urobilinogen - Negative Bedside Urine Nitrite - Negative Bedside Urine Leukocytes - Negative Esterase Imaging Data mrcp: Radiologist's Impression: Close Abdomen MRI with MRCP (Signed) Ventura Swain - 07/14/23 Abdomen Ultrasound (Signed) Rola Mckeon - 07/14/[address] (Signed) JoyceStephen - 07/13/23 Chest/Abdomen/Pelvis CT (Signed) Pa Galicia - 06/22/23 Hip X-Ray (Signed) Grayson Flowers - 06/03/23 Shoulder X-Ray (Signed) KorinaGer - 03/18/23 Shoulder X-Ray (Signed) Ger Hui - 03/18/23 DI Result 05/31/14 Launch?[place] [address] Magnetic Resonance Report Signed Patient: Asher Hernández MR#: [id number] : 1965 Acct:[id number] Age/Sex: 58 / M Date of Service: 07/14/23 Loc: ED Accession Number: [id number] Procedure: MR Ab Pancreatic/MRCP protocol Ordering Provider: Alfonzo Mariee D.O. PROCEDURE: MR AB PANCREATIC/MRCP PROTOCOL INDICATIONS: eval for pancreatic masses TECHNIQUE: Coronal HASTE through the abdomen, axial 2-D FLASH in- and [id number], and breath-hold T2 FSE with fat saturation through the biliary system and pancreas. Oblique coronal and axial thin-slice HASTE, radial thick-slab HASTE centered on the extrahepatic bile ducts. Intravenous secretin: Not requested. COMPARISON: [facility], CT, CT ABDOMEN PANCREATIC PROTOCOL, 07/13/2023, 16:24. [facility], US, US ABDOMEN LIMITED, 07/14/2023, 17:05. FINDINGS: Image quality: Diagnostic. Gallbladder: No gallstones or wall thickening. Biliary ducts: No biliary dilation. Pancreas: No ductal dilation. 8 x 6 mm nonenhancing T2 hyperintense focus involving body of pancreas which was also seen on CT study likely represent a tiny cyst or IPMN. Ill-defined T2 hyperintense area involving pancreatic neck and measures in aggregate 1.6 x 1.7 cm in size series 5, image 19 with questionable peripheral contrast enhancement. There is mass effect on the adjacent portal vein at this level without definite intraluminal filling defect to suggest portal vein thrombosis. This is best seen on series 17, image 45. OTHER: Lung bases: Unremarkable. Liver: No solid mass. Spleen: There is splenomegaly, no discrete splenic lesion. Adrenal Glands: No adrenal nodules. Kidneys and Ureters: No hydronephrosis. No solid mass. No complex renal cystic lesion which requires follow up. Stomach and Bowel: There is no evidence of bowel obstruction or abnormal bowel wall thickening. No mesenteric fat stranding. Peritoneum: No abnormal intraperitoneal fluid. No free air. Ventral Wall: No hernia. Abdominal Nodes: No retroperitoneal or mesenteric adenopathy by size criteria. Vessels: Aorta and inferior vena cava are normal in size. Bones: No aggressive osseous abnormality. IMPRESSION: 1. Ill-defined T2-1 hypointense and T2 hyperintense area involving pancreatic neck measures up to 1.6 x 1.7 cm in size and show questionable peripheral enhancement and mild mass effect on the main portal vein at this level. This is concerning for and a call pancreatic neck mass. No pancreatic ductal dilatation. Additional cystic area involving pancreatic body and likely represent tiny cysts versus IPMN. Consider ERCP and possible biopsy of the pancreatic neck region for further evaluation. 2. Normal appearing gallbladder. No discrete hepatic lesion. No intra or extrahepatic biliary ductal dilatation. 3. No evidence of portal vein thrombosis. 4. Splenomegaly, no discrete splenic lesion. Dictated by: Ventura Swain M.D. on 07/14/2023 at 20:46 Approved by: Ventura Swain M.D. on 07/14/2023 at 21:00 [facility] Narrative Medical decision making narrative: PATIENT'S LABS TODAY SHOW WHITE COUNT OF 6.2 HEMOGLOBIN OF 14 CREATININE OF 1.02, BUN IS 17 WITH A POTASSIUM OF 4.3 AND A SODIUM OF 139 GLUCOSE IS 158. LFTS ARE NEGATIVE, LIPASE IS 107. PATIENT'S IMAGING DID SHOW ILL-DEFINED MASS 1.67 X 1.7 CM IN THE PANCREATIC REGION. QUESTIONABLE ENHANCEMENT MILD MASS EFFECT ON THE PORTAL VEIN CONCERNING FOR PANCREATIC NECK MASS NO DUCTAL DILATION ADDITIONAL CYSTIC AREA INVOLVING THE PANCREATIC BODY LIKELY TINY CYSTS VERSUS IPMN, PATIENT HAS BEEN SET UP FOR BIOPSY AND WHAT SOUNDS LIKE ERCP TOMORROW. THEY ARE SEEKING SOME HYDRATION AND CYSTIC WITH PAIN MANAGEMENT UNTIL HE CAN BE SEEN TOMORROW. THEY DO NOT WISH FOR ADDITIONAL TREATMENT AT THIS TIME. PATIENT'S LABS ARE OTHERWISE APPROPRIATE AND HE HAS BEEN SET UP FOR APPROPRIATE FOLLOW-UP NEXT 24 HOURS. Patient has prescription for oral narcotics at home and has recently received a prescription for antiemetics does not require either of these. Discussed return precautions all questions answered. Discharge Plan Departure Patient Disposition: Home Clinical Impression: Pancreatic mass, Vomiting Activity Restrictions/Additional Instructions: I hope you are procedure with gastroenterology goes well tomorrow. I hope you continue to feel improved. Continue with your narcotic pain medication as prescribed You can take 1 tablet Zofran every 6 hours as needed Please return for fevers, new or worsening abdominal back or flank pain, persistent vomiting, signs of dehydration, blood in your emesis or in your stools or other new or concerning changes. Prescriptions: No Action fluticasone propionate 50 mcg/actuation spray,suspension 1 spray intranasal DAILY Qty: 16 3RF Rx Instructions: administer into each nostril daily hydromorphone 2 mg tablet 2 mg PO Q4-6H PRN (Reason: pain) Qty: 180 0RF Rx Instructions: Take 1 tab by mouth every 4-6 hours as needed for pain due to malignancy. EXEMPT ondansetron 4 mg tablet,disintegrating See Rx Instructions .ROUTE .COMPLEX PRN (Reason: nausea and vomiting) Qty: 180 3RF Rx Instructions: Take with Hydromorphone for the first few days of treatment, and every 6 hours as needed thereafter Disabled Parking Permit See Rx Instructions .ROUTE .COMPLEX Qty: 1 0RF Rx Instructions: Temporary disabled parking placard baclofen 5 mg tablet 5 mg PO BEDTIME Qty: 90 3RF Rx Instructions: Take 1 tab at bedtime daily ibuprofen 400 mg tablet 400 mg PO Q8H PRN (Reason: pain) acetaminophen [Tylenol Extra Strength] 500 mg tablet 1,000 mg PO TID PRN (Reason: pain) Rx Instructions: NTE 3000mg/24 hours cetirizine [Allergy Relief (cetirizine)] 10 mg tablet 10 mg PO DAILY Qty: 90 3RF Rx Instructions: Take daily for allergies [facility] Remedy See Rx Instructions .ROUTE .COMPLEX Rx Instructions: Per package instructions - Pastilles OR Liquid; dronabinol 10 mg capsule 10 mg PO TID PRN (Reason: pain) Qty: 90 3RF Rx Instructions: Take 1 cap three times per day as needed for pain, equivalent to Nabilone dosing. prednisone 10 mg tablets,dose pack See Rx Instructions PO PER PKG DIR Qty: 48 0RF Rx Instructions: Days 1-4: 40 mg PO before breakfast Days 5-8: 30 mg PO before breakfast Days 9-12: 20 mg PO before breakfast Days 13-17: 10 mg PO before breakfast, on day 13 it is okay to re-start Advil, Ibuprofen, Aleve, Naproxen, or other non-steroidal anti-inflammatory medication) Days 18-19: 5 mg per day (only 0.5 tablet per day) tamsulosin 0.4 mg capsule 0.4 mg PO BID Qty: 180 3RF fenofibrate 160 mg tablet 160 mg PO DAILY Qty: 90 3RF dronabinol 2.5 mg capsule 10 mg PO TID 30 Days Qty: 360 3RF Rx Instructions: Take 4 caps by mouth TID pantoprazole 20 mg tablet,delayed release (DR/EC) 20 mg PO DAILY Qty: 90 3RF lorazepam 0.5 mg tablet 0.5 mg PO TID PRN (Reason: anxiety) Qty: 30 0RF hydrocodone-acetaminophen 5-325 mg tablet 1 tab PO Q6H PRN (Reason: pain) Qty: 24 0RF hydrocodone-acetaminophen 5-325 mg tablet 1 tab PO Q8H PRN (Reason: pain) Qty: 14 0RF Referrals: Catia Fonseca ARNP [Primary Care Provider] - Stand Alone Forms: Patient Portal/API
[2023-07-15 15:41] VITALS: BP 134/79; PULSE 61; RESP 12; O2SAT 99
== END 2023-07-15 15:43 | disposition home or self-care (01) ==
PROVIDERS: Emergency Provider Emergency Medicine; PCP Nurse Practitioner
DX: K86.89 Other specified diseases of pancreas (principal); R11.10 Vomiting, unspecified
CPT/HCPCS: 36415; 80053; 81003; 83690; 85025; 93005; 96361; 96374; 96375; 99284; J1170; J2405

== ENCOUNTER 2023-09-08 19:35 | Emergency (ER) | payer OTHER, MEDICAID, SELFPAY ==
[2023-09-08] VITALS (7 sets, daily range): BP systolic 132–146; BP diastolic 72–93; PULSE 62–98; RESP 16–18; TEMP 36.9; O2SAT 97–99; BMI 28.5
[2023-09-08] MEDS: ONDANSETRON 4 MG/2 ML INJ IV (20:20)
[2023-09-08] MEDS: SODIUM CHLORIDE 0.9% 1,000 ML 1000 ML IV ×2 (20:22→22:40)
[2023-09-08 20:41] LABS: Alanine Aminotransferase 27 IU/L (<50); Albumin 4.5 g/dL (3.5-5.0); Albumin Globulin Ratio 1.3 (1.0-2.8); Alkaline Phosphatase 74 U/L (38-126); Aspartate Aminotransferase 31 IU/L (17-59); BUN Creatinine Ratio 20.9 (6-22); Bilirubin Total 0.5 mg/dL (0.2-1.3); Blood Urea Nitrogen 23 mg/dL (9-20); Calcium 9.3 mg/dL (8.4-10.2); Carbon Dioxide 29 mmol/L (22-32); Chloride 100 mmol/L (98-107); Estimated Glomerular Filt Rate > 60 mL/min (>60); Globulin 3.6 g/dL (1.7-4.1); Glucose 145 mg/dL (70-100); HEMOLYSIS < 15 (0-50); Lipase 231 U/L (23-300); Potassium 3.8 mmol/L (3.4-5.1); Sodium 135 mmol/L (137-145); Total Protein 8.1 g/dL (6.3-8.2)
--- NOTE | 2023-09-08 20:41 | PC.NURSE ---
Pt states that he has been struggling with his nausea during chemotherapy. They have been messaging his Oncologist about getting a new prescription for Scopolomine patches. He currently has Johanna and Renny but they are not doing the trick. Today he is very dehydrated, paler than usual.
[2023-09-08 20:48] LABS: Add Manual Diff / Slide Review NO; Basophils Absolute Auto 0 /uL (0-100); Basophils Percent Auto 0.3 % (0-2); Eosinophils Absolute Auto 100 /uL (0-450); Eosinophils Percent Auto 1.2 % (2-4); Hematocrit 40.2 % (41-53); Hemoglobin 13.9 g/dL (13.5-17.5); Lymphocytes Absolute Auto 1200 /uL (1100-4500); Lymphocytes Percent Auto 12.2 % (25-40); Mean Corpuscular HGB Conc 34.6 % (30-36); Mean Corpuscular Hemoglobin 29.6 PG (26-34); Mean Corpuscular Volume 85.5 fL (80-100); Monocytes Absolute Auto 700 /uL (0-900); Neutrophils Absolute Auto 8000 /uL (1500-7000); Neutrophils Percent Auto 79.3 % (50-75); Platelet Count 202 X10^3/uL (150-400); Red Cell Distribution Width 14.8 % (11.6-14.8); White Blood Cell Count 10.1 X10^3/uL (4.5-11.0)
--- NOTE | 2023-09-08 22:14 | ED_ITS ---
HPI - Nausea/Vomiting/Diarrhea General Chief complaint: Nausea/Vomiting/Diarrhea Stated complaint: N/V has pancreatic cancer Time Seen by Provider: 09/08/23 22:14 Source: patient Mode of arrival: Ambulatory History of Present Illness HPI Narrative: 58-year-old male with history of pancreatic cancer diagnosed June 2023, ongoing chemotherapy having completed his 1st 3 sessions, 4th session to be scheduled, hopes to have enough tumor shrinkage to be a candidate for Whipple surgical excision procedure, right-sided chest port access for chemotherapy, having nausea and vomiting with some left-sided abdominal discomfort. He denies chest pain or headache neck pain. He had received scopolamine patch which seemed to be helping his nausea and vomiting, it apparently fell off in his apparently lost. He would like to have another scopolamine patch applied. No fevers or chills. No painful urination. No cough or shortness of breath or chest pain. Related Data Home Medications Medication Instructions Recorded Confirmed [facility] See Rx Instructions .Route .COMPLEX 03/03/23 07/14/23 acetaminophen 500 mg tablet 1,000 mg PO TID PRN pain 03/03/23 07/14/23 (Tylenol Extra Strength) ibuprofen 400 mg tablet 400 mg PO Q8H PRN pain 03/03/23 07/14/23 Previous Rx's Medication Instructions Recorded baclofen 5 mg tablet 5 mg PO BEDTIME #90 tabs 03/03/23 cetirizine 10 mg tablet (Allergy 10 mg PO DAILY #90 tabs 03/03/23 Relief (cetirizine)) fluticasone propionate 50 1 spray intranasal DAILY #16 grams 05/31/23 mcg/actuation nasal spray,suspension dronabinol 10 mg capsule 10 mg PO TID PRN pain #90 caps 06/30/23 fenofibrate 160 mg tablet 160 mg PO DAILY #90 tabs 06/30/23 prednisone 10 mg tablets in a dose See Rx Instructions PO PER PKG DIR 06/30/23 pack #48 ea tamsulosin 0.4 mg capsule 0.4 mg PO BID #180 caps 06/30/23 dronabinol 2.5 mg capsule 10 mg (4 x 2.5 mg) PO TID nausea 07/08/23 and vomiting 30 days #360 caps lorazepam 0.5 mg tablet 0.5 mg PO TID PRN anxiety #30 tabs 07/08/23 pantoprazole 20 mg tablet,delayed 20 mg PO DAILY #90 tabs 07/08/23 release hydromorphone 2 mg tablet 2 mg PO Q4-6H PRN pain #180 tabs 07/15/23 ondansetron 4 mg disintegrating See Rx Instructions .Route 07/15/23 tablet .COMPLEX PRN nausea and vomiting #180 tabs gabapentin 300 mg capsule 300 mg PO TID PRN pain #180 caps 07/16/23 hydromorphone 4 mg tablet 2 mg (1/2 x 4 mg) PO Q4-6H PRN 07/16/23 pain #90 tabs fentanyl 50 mcg/hr transdermal 1 patch transdermal Q72H #10 ea 07/19/23 patch Disabled Parking Permit See Rx Instructions .Route 08/25/23 .COMPLEX #1 unit amoxicillin 875 mg-potassium 1 tab PO BID 10 days #20 tabs 09/09/23 clavulanate 125 mg tablet Allergies Allergy/AdvReac Type Severity Reaction Status Date / Time No Known Drug Allergies Allergy Unverified 06/10/23 16:05 Review of Systems Review of Systems Narrative: per HPI Patient History Medical History Neoplasm related pain Malignant neoplasm of pancreas GERD (gastroesophageal reflux disease) Bilateral hip pain Greater trochanteric bursitis of both hips Right hip pain Left hip pain Arthritis of left acromioclavicular joint Impingement of right shoulder Bilateral shoulder pain Social History Smoking Status: Former smoker Smoking Status: Former smoker tobacco type: cigarettes alcohol intake frequency: 0-2 drinks per day Substance Use Type: marijuana Exam Narrative Exam Narrative: GENERAL: Well-developed patient, in mild distress. HEAD: Atraumatic. Normocephalic. EYES: Pupils equal round and reactive. Extraocular motions intact. No scleral icterus. No injection or drainage. ENT: Nose without bleeding, purulent drainage. Throat without erythema, tonsillar hypertrophy or exudate. Airway patent. NECK: Trachea midline. Non tender CARDIOVASCULAR: Regular rate and rhythm without murmurs, gallops, or rubs. RESPIRATORY: Clear to auscultation. Breath sounds equal bilaterally. No wheezes, rales, or rhonchi. GASTROINTESTINAL: Abdomen soft, non-tender, nondistended. EXTREMITIES: No edema or joint tenderness. BACK: Nontender without deformity or crepitance. No flank tenderness. NEURO: AOx3. SKIN: No rash or erythema of visible areas Initial Vital Signs Initial Vital Signs: Vital Signs Temperature 98.4 F 09/08/23 20:01 Pulse Rate 98 H 09/08/23 20:01 Respiratory Rate 16 09/08/23 20:01 Blood Pressure 140/93 H 09/08/23 20:01 Pulse Oximetry 98 09/08/23 20:01 Oxygen Delivery Method Room Air 09/08/23 20:01 Course Orders Ordered: ED Orders 09/08/23 20:20 Complete Blood Count AUTO DIFF Stat Comprehensive Metabolic Panel Stat Lipase Stat 09/08/23 22:14 CT abdomen pelvis w con Stat Discontinued Medications Al Hydrox/Mg Hydrox/Simethicone (Mag Hydrox/Alum/Simeth 30 Ml Udc) 30 ml PO NOW ONE Stop: 09/09/23 01:16 Last Admin: 09/09/23 01:20 Dose: 30 ml Documented By: Hydromorphone HCl (Hydromorphone 0.5 Mg Inj) 0.5 mg IV NOW ONE Stop: 09/09/23 00:24 Last Admin: 09/09/23 00:32 Dose: 0.5 mg Documented By: ANTWON Sodium Chloride (Normal Saline 0.9%) 1,000 mls @ 1,000 mls/hr IV BOLUS ONE Stop: 09/08/23 21:21 Last Infusion: 09/08/23 21:28 Dose: Infused Documented By: Admin: 09/08/23 20:22 Dose: 1,000 mls/hr Documented By: VEENA Sodium Chloride (Normal Saline 0.9%) 1,000 mls @ 1,000 mls/hr IV BOLUS ONE Stop: 09/08/23 23:23 Last Infusion: 09/08/23 23:14 Dose: Infused Documented By: Admin: 09/08/23 22:40 Dose: 1,000 mls/hr Documented By: HENRRY Ampicillin Sodium/Sulbactam (Sodium 3 gm/ Sodium Chloride) 100 mls @ 200 mls/hr IV NOW ONE Stop: 09/09/23 00:23 Last Infusion: 09/09/23 01:10 Dose: Infused Documented By: Admin: 09/09/23 00:31 Dose: 200 mls/hr Documented By: ANTWON Lidocaine HCl (Lidocaine Viscous 2% 15 Ml Solution) 15 ml PO NOW ONE Stop: 09/09/23 01:16 Last Admin: 09/09/23 01:19 Dose: 15 ml Documented By: Ondansetron HCl (Ondansetron 4 Mg/2 Ml Inj) 4 mg IV NOW PRN PRN Reason: Nausea And Vomiting Last Admin: 09/08/23 20:20 Dose: 4 mg Documented By: VEENA Ondansetron HCl (Ondansetron 4 Mg/2 Ml Inj) 4 mg IV NOW ONE Stop: 09/09/23 01:43 Last Admin: 09/09/23 01:57 Dose: Not Given Documented By: Pantoprazole Sodium (Pantoprazole 40 Mg Vial) 40 mg IV NOW ONE Stop: 09/09/23 01:30 Last Admin: 09/09/23 01:31 Dose: 40 mg Documented By: Scopolamine (Scopolamine 1 Patch) 1 patch TOP NOW ONE Stop: 09/08/23 22:42 Last Admin: 09/08/23 22:50 Dose: 1 patch Documented By: HENRRY Vital Signs Vital signs: Vital Signs - 8 hr 09/08/23 21:33 09/08/23 21:33 09/08/23 22:00 Pulse Rate 69 68 Respiratory Rate Blood Pressure 132/72 Pulse Oximetry 98 97 Oxygen Delivery Method 09/08/23 22:38 09/08/23 23:00 09/08/23 23:00 Pulse Rate 70 62 Respiratory Rate Blood Pressure 144/79 H Pulse Oximetry 99 97 Oxygen Delivery Method Room Air 09/08/23 23:30 09/08/23 23:47 09/08/23 23:47 Pulse Rate 73 62 Respiratory Rate 18 Blood Pressure 146/85 H Pulse Oximetry 98 97 Oxygen Delivery Method 09/09/23 00:00 09/09/23 00:30 09/09/23 00:52 Pulse Rate 64 72 66 Respiratory Rate 18 16 Blood Pressure 125/75 Pulse Oximetry 97 97 97 Oxygen Delivery Method Room Air MDM - Nausea/Vomiting/Diarrhea Lab Data Attestation: I reviewed the patient's lab results. 09/08/23 20:20 09/08/23 20:20 Labs: Lab Results 09/08/23 Range/Units 20:20 WBC 10.1 (4.5-11.0) X10^3/uL RBC 4.70 (4.5-5.9) X10^6/uL Hgb 13.9 (13.5-17.5) g/dL Hct 40.2 L (41-53) % MCV 85.5 (80-100) fL MCH 29.6 (26-34) PG MCHC 34.6 (30-36) % RDW 14.8 (11.6-14.8) % Plt Count 202 (150-400) X10^3/uL Neut % (Auto) 79.3 H (50-75) % Lymph % (Auto) 12.2 L (25-40) % Merrick % (Auto) 7.0 (3-14) % Eos % (Auto) 1.2 L (2-4) % Baso % (Auto) 0.3 (0-2) % Neut # (Auto) 8000 H (1397-3567) /uL Lymph # (Auto) 1200 (4643-3930) /uL Merrick # (Auto) 700 (0-900) /uL Eos # (Auto) 100 (0-450) /uL Baso # (Auto) 0 (0-100) /uL Sodium 135 L (137-145) mmol/L Potassium 3.8 (3.4-5.1) mmol/L Chloride 100 (98-107) mmol/L Carbon Dioxide 29 (22-32) mmol/L BUN 23 H (9-20) mg/dL Creatinine 1.10 (0.66-1.25) mg/dL Estimated GFR > 60 (>60) mL/min BUN/Creatinine Ratio 20.9 (6-22) Glucose 145 H (70-100) mg/dL Calcium 9.3 (8.4-10.2) mg/dL Total Bilirubin 0.5 (0.2-1.3) mg/dL AST 31 (17-59) IU/L ALT 27 (<50) IU/L Alkaline Phosphatase 74 (38-126) U/L Total Protein 8.1 (6.3-8.2) g/dL Albumin 4.5 (3.5-5.0) g/dL Globulin 3.6 (1.7-4.1) g/dL Albumin/Globulin Ratio 1.3 (1.0-2.8) Lipase 231 (23-300) U/L Urine Dip Bedside Urine Glucose Negative Bedside Urine Bilirubin - Negative Bedside Urine Ketone - Negative Urine Specific Morrow 1.020 Bedside Urine Occult Blood - Negative Bedside Urine pH 6.0 Bedside Urine Protein - Negative Bedside Urine Urobilinogen - Negative Bedside Urine Nitrite - Negative Bedside Urine Leukocytes - Negative Esterase MDM Narrative Medical decision making narrative: 58-year-old male with history of pancreatic cancer, has had nausea and vomiting, with minimal abdominal discomfort, it had been responsive scopolamine disc, that had fallen off in his lost. No fevers or chills. Sirs screen negative, afebrile. Labs sent. Consider CT scan to look for acute cause of his ongoing nausea and vomiting, they are agreeable to this. We did apply new scopolamine patch that he found helpful for control of nausea, this can be worn for 3 days in for discharge, further refills per chronic care providers. Screening labs unremarkable. Urinalysis negative, renal function adequate. CT abdomen and pelvis ordered. CT abdomen and pelvis suggestive of colitis, IV Unasyn, p.o. Augmentin course. Initially declined pain medications then requested, IV Dilaudid, then had nausea and vomiting, IV Zofran, symptoms improved. Prescription Augmentin course sent to his pharmacy. Advised to contact his oncologist, as his upcoming 4th round of chemotherapy might need to be rescheduled/delayed until he is infection free. Improved, stable. Discharged home with family. Critical Care Time Critical Care Time Critical Care Time: Yes Total Critical Care Time: 31 Attestation: The high probability of a clinically significant, sudden or life threatening deterioration of the [cardiopulmonary, abdominopelvic, gastrointestinal,] system(s) required my full and direct attention, intervention and personal management. The aggregate critical care time was [31] minutes. This time is in addition to time spent performing reported procedures but includes the following: [x] Data Review and interpretation [x] Patient assessment and monitoring of vital signs [x] Documentation [x] Medication orders and management Discharge Plan Departure Patient Disposition: Home Clinical Impression: Nausea and vomiting, Colitis, History of pancreatic cancer, Abdominal pain Instructions: Nausea and Vomiting-Adult, DI for Colitis Activity Restrictions/Additional Instructions: History of pancreatic cancer, awaiting next round of chemotherapy for tumor shrinkage, possible Whipple surgical excision procedure in the future, ongoing struggles with nausea and vomiting, left-sided Port-A-Cath, screening labs today unremarkable. Antinausea medication scopolamine was helpful for you in the past, a dose was located in place behind the ear as seems to be helping with discomfort of nausea. Abdominal discomfort prompted CT scanning to look for progression of pancreatic disease versus some other cause of nausea vomiting and discomfort. Stable appearing pancreatic lesion changes per radiologist's report in comparison to old studies. However there seemed to be acute appearing sigmoid area colitis inflammatory infectious like findings. No history of Crohn's disease or inflammatory bowel disease known. Presumed infectious cause. IV Unasyn antibiotic started, with prescription for oral Augmentin antibiotic to take for 10 days. Consider communication with your oncologist, about the suspected colitis diagnosis, as your next round of chemotherapy might need to be delayed until you seemed to be infection free. Follow up with your regular provider and your oncologist as planned. Return to this/nearest emergency department for any change worsening symptoms or any concerns prior Prescriptions: New amoxicillin-pot clavulanate 875-125 mg tablet 1 tab PO BID 10 Days Qty: 20 0RF No Action fluticasone propionate 50 mcg/actuation spray,suspension 1 spray intranasal DAILY Qty: 16 3RF Rx Instructions: administer into each nostril daily hydromorphone 2 mg tablet 2 mg PO Q4-6H PRN (Reason: pain) Qty: 180 0RF Hold Instructions: Home Medication placed on hold at Doctor's office Rx Instructions: Take 1 tab by mouth every 4-6 hours as needed for pain due to malignancy. EXEMPT ondansetron 4 mg tablet,disintegrating See Rx Instructions .ROUTE .COMPLEX PRN (Reason: nausea and vomiting) Qty: 180 3RF Rx Instructions: Take with Hydromorphone for the first few days of treatment, and every 6 hours as needed thereafter hydromorphone 4 mg tablet 2 mg PO Q4-6H PRN (Reason: pain) Qty: 90 0RF gabapentin 300 mg capsule 300 mg PO TID PRN (Reason: pain) Qty: 180 3RF Rx Instructions: 300mg TID as needed for breakthrough pain fentanyl 50 mcg/hr patch 72 hour 1 patch transdermal Q72H Qty: 10 0RF Rx Instructions: Replace topically every 72 hours for pain due to malignancy EXEMPT baclofen 5 mg tablet 5 mg PO BEDTIME Qty: 90 3RF Rx Instructions: Take 1 tab at bedtime daily ibuprofen 400 mg tablet 400 mg PO Q8H PRN (Reason: pain) acetaminophen [Tylenol Extra Strength] 500 mg tablet 1,000 mg PO TID PRN (Reason: pain) Rx Instructions: NTE 3000mg/24 hours cetirizine [Allergy Relief (cetirizine)] 10 mg tablet 10 mg PO DAILY Qty: 90 3RF Rx Instructions: Take daily for allergies [facility] See Rx Instructions .ROUTE .COMPLEX Rx Instructions: Per package instructions - [place] OR Liquid; dronabinol 10 mg capsule 10 mg PO TID PRN (Reason: pain) Qty: 90 3RF Rx Instructions: Take 1 cap three times per day as needed for pain, equivalent to Nabilone dosing. prednisone 10 mg tablets,dose pack See Rx Instructions PO PER PKG DIR Qty: 48 0RF Rx Instructions: Days 1-4: 40 mg PO before breakfast Days 5-8: 30 mg PO before breakfast Days 9-12: 20 mg PO before breakfast Days 13-17: 10 mg PO before breakfast, on day 13 it is okay to re-start Advil, Ibuprofen, Aleve, Naproxen, or other non-steroidal anti-inflammatory medication) Days 18-19: 5 mg per day (only 0.5 tablet per day) tamsulosin 0.4 mg capsule 0.4 mg PO BID Qty: 180 3RF fenofibrate 160 mg tablet 160 mg PO DAILY Qty: 90 3RF dronabinol 2.5 mg capsule 10 mg PO TID 30 Days Qty: 360 3RF Rx Instructions: Take 4 caps by mouth TID pantoprazole 20 mg tablet,delayed release (DR/EC) 20 mg PO DAILY Qty: 90 3RF lorazepam 0.5 mg tablet 0.5 mg PO TID PRN (Reason: anxiety) Qty: 30 0RF Disabled Parking Permit See Rx Instructions .ROUTE .COMPLEX Qty: 1 0RF Rx Instructions: I find this patient to be medically disabled and qualify for disabled parking as indicated and signed on the accompanying disabled parking application for individuals. Referrals: Catia Fonseca ARNP [Primary Care Provider] - Stand Alone Forms: Patient Portal/API
--- NOTE | 2023-09-08 22:14 | DI.CT.S_ITS ---
PROCEDURE: CT ABDOMEN PELVIS W CON INDICATIONS: N/V, hx pancreas problems TECHNIQUE: After the administration of intravenous contrast, axial sections acquired from the lung bases to the pubic symphysis. Coronal and sagittal reformats were performed. For radiation dose reduction, the following was used: automated exposure control, adjustment of mA and/or kV according to patient size. COMPARISON: [facility], CT, CT ABDOMEN PANCREATIC PROTOCOL, 07/13/2023, 16:24. [facility], CT, CT CELIAC PLEXUS NEUROLYSIS, 09/03/2023, 13:18. FINDINGS: Image quality: Diagnostic. Lower Chest: Bibasilar atelectasis. ABDOMEN: Liver: No solid mass. There is diffuse hypoattenuation of the liver parenchyma relative to the spleen compatible with hepatic steatosis. Gallbladder: No radiopaque gallstones or wall thickening. Biliary ducts: No biliary dilation. Pancreas: No ductal dilation. Redemonstration of generalized hypoattenuation of the pancreatic neck, body and tail. No significant peripancreatic inflammation. Spleen: Size is enlarged measuring approximately 14.8 cm in maximum dimension. Adrenal Glands: No adrenal nodules. Kidneys and Ureters: No hydronephrosis. No solid mass. No complex renal cystic lesion which requires follow up. Stomach and Bowel: Mild circumferential wall thickening of the descending colon and sigmoid colon with mild pericolonic stranding. The appendix is not definitively visualized. However, no secondary findings of acute inflammation are noted in the right lower quadrant. No evidence for small bowel obstruction. Peritoneum: No abnormal intraperitoneal fluid. No free air. Ventral Wall: No significant ventral hernia. Abdominal Nodes: No retroperitoneal or mesenteric adenopathy by size criteria. Vessels: Aorta and inferior vena cava are normal in size. PELVIS: Pelvic Organs: Unremarkable. Bladder: No bladder wall thickening, accounting for underdistention. Pelvic Nodes: No enlarged lymph nodes. Miscellaneous: No inguinal hernias are seen. Bones: No aggressive osseous abnormality. Visualized osseous structures appear intact without acute fracture or focal destructive lesion. No acute compression fractures of the imaged spine. IMPRESSION: Findings compatible with colitis of the descending colon and sigmoid colon either infectious or inflammatory in etiology. Stable appearance of hypoattenuation of the pancreatic neck, body and tail likely representing reported history of pancreatic neoplasm. No pancreatic ductal dilatation. No evidence for acute pancreatitis. Splenomegaly. Hepatic steatosis. Dictated by: Will Mejias M.D. on 09/08/2023 at 23:52 Approved by: Will Mejias M.D. on 09/08/2023 at 23:59
[2023-09-08] MEDS: SCOPOLAMINE 1 PATCH TOP (22:50)
[2023-09-09] VITALS: PULSE 64; O2SAT 97
[2023-09-09 00:30] VITALS: PULSE 72; RESP 18; O2SAT 97
[2023-09-09] MEDS: AMPICILLIN/SULBACTAM 3 GM 3 GM in SODIUM CHLORIDE 0.9% 100 ML IV (00:31)
[2023-09-09] MEDS: HYDROMORPHONE 0.5 MG INJ IV (00:32)
[2023-09-09 00:52] VITALS: BP 125/75; PULSE 66; RESP 16; O2SAT 97
[2023-09-09] MEDS: LIDOCAINE VISCOUS 2% 15 ML SOLUTION PO (01:19)
[2023-09-09] MEDS: MAG HYDROX/ALUM/SIMETH 30 ML UDC PO (01:20)
[2023-09-09] MEDS: PANTOPRAZOLE 40 MG VIAL IV (01:31)
--- NOTE | 2023-09-09 01:57 | PC.NURSE ---
Pt states that he is feeling way better after IV protonix and would like to go now.
== END 2023-09-09 01:58 | disposition home or self-care (01) ==
PROVIDERS: Emergency Provider Emergency Medicine; PCP Nurse Practitioner
DX: K52.9 Noninfective gastroenteritis and colitis, unspecified (principal); R11.2 Nausea with vomiting, unspecified; R10.9 Unspecified abdominal pain; Z85.07 Personal history of malignant neoplasm of pancreas
CPT/HCPCS: 36415; 74177; 80053; 81003; 83690; 85025; 96361; 96365; 96375; 99284; J0295; J1170; J2405; J2470; Q9967

== ENCOUNTER 2023-10-08 11:52 | Emergency (ER) | payer OTHER, MEDICAID, SELFPAY ==
[2023-10-08] VITALS (13 sets, daily range): BP systolic 104–168; BP diastolic 74–100; PULSE 68–93; RESP 14–16; TEMP 36.3; O2SAT 96–98; BMI 26.3
[2023-10-08 12:24] LABS: Add Manual Diff / Slide Review NO; Basophils Absolute Auto 0 /uL (0-100); Basophils Percent Auto 0.6 % (0-2); Eosinophils Absolute Auto 100 /uL (0-450); Eosinophils Percent Auto 1.3 % (2-4); Hematocrit 35.6 % (41-53); Hemoglobin 12.4 g/dL (13.5-17.5); Lymphocytes Absolute Auto 800 /uL (1100-4500); Lymphocytes Percent Auto 19.6 % (25-40); Mean Corpuscular HGB Conc 34.9 % (30-36); Mean Corpuscular Hemoglobin 30.4 PG (26-34); Mean Corpuscular Volume 87.3 fL (80-100); Monocytes Absolute Auto 700 /uL (0-900); Monocytes Percent Auto 17.5 % (3-14); Neutrophils Absolute Auto 2400 /uL (1500-7000); Platelet Count 107 X10^3/uL (150-400); Red Blood Cell Count 4.08 X10^6/uL (4.5-5.9); Red Cell Distribution Width 17.5 % (11.6-14.8); White Blood Cell Count 3.9 X10^3/uL (4.5-11.0)
[2023-10-08 12:24] LABS: Urine Volume 10mL (spun)
[2023-10-08 12:28] LABS: Bacteria Urine None Seen; Calcium Oxalate Crystals Urine Few; RBC Urine None Seen (0-5/HPF); Squamous Epithelial Cell Urine 0-1 /HPF (0-5/HPF); WBC Urine 0-1/HPF (0-5/HPF)
[2023-10-08 12:29] LABS: Culture Indicated Urine Cult Not Indicated
[2023-10-08 12:38] LABS: Alanine Aminotransferase 38 IU/L (<50); Albumin 4.2 g/dL (3.5-5.0); Albumin Globulin Ratio 1.4 (1.0-2.8); Alkaline Phosphatase 55 U/L (38-126); Ammonia (NH3) < 9 umol/L (9-30); Aspartate Aminotransferase 47 IU/L (17-59); Bilirubin Total 0.5 mg/dL (0.2-1.3); Blood Urea Nitrogen 22 mg/dL (9-20); Calcium 9.2 mg/dL (8.4-10.2); Carbon Dioxide 21 mmol/L (22-32); Chloride 104 mmol/L (98-107); Estimated Glomerular Filt Rate > 60 mL/min (>60); Glucose 134 mg/dL (70-100); HEMOLYSIS 58 (0-50); Lactate (Lactic Acid) 1.1 mmol/L (0.7-2.1); Lipase 69 U/L (23-300); Potassium 4.4 mmol/L (3.4-5.1); Sodium 135 mmol/L (137-145); Total Protein 7.2 g/dL (6.3-8.2)
--- NOTE | 2023-10-08 13:08 | ED_ITS ---
HPI - Abdominal Pain General Chief Complaint: Abdominal Pain Stated Complaint: abd px, pancreatic cx pt, vomiting, unable to BM Time Seen by Provider: 10/08/23 12:26 Mode of arrival: Ambulatory History of Present Illness HPI narrative: Patient is a 58-year-old male history of pancreatic cancer currently undergoing chemotherapy being treated at [facility] presenting today with left- sided abdominal pain some rectal pressure nausea. This is his off week from chemo he is unable to keep anything down he continues to lose weight this week. He was previously seen here on September 07 diagnosed with colitis he was put on Augmentin. He reports that seems improved after the antibiotics. He is really only had pain since last night. He has been trying not to get constipated by taking Dulcolax every day. He denies any fever chest pain or shortness of breath Related Data Home Medications Medication Instructions Recorded Confirmed [facility] See Rx Instructions .Route .COMPLEX 03/03/23 07/14/23 acetaminophen 500 mg tablet 1,000 mg PO TID PRN pain 03/03/23 07/14/23 (Tylenol Extra Strength) ibuprofen 400 mg tablet 400 mg PO Q8H PRN pain 03/03/23 07/14/23 Previous Rx's Medication Instructions Recorded baclofen 5 mg tablet 5 mg PO BEDTIME #90 tabs 03/03/23 cetirizine 10 mg tablet (Allergy 10 mg PO DAILY #90 tabs 03/03/23 Relief (cetirizine)) fluticasone propionate 50 1 spray intranasal DAILY #16 grams 05/31/23 mcg/actuation nasal spray,suspension dronabinol 10 mg capsule 10 mg PO TID PRN pain #90 caps 06/30/23 fenofibrate 160 mg tablet 160 mg PO DAILY #90 tabs 06/30/23 prednisone 10 mg tablets in a dose See Rx Instructions PO PER PKG DIR 06/30/23 pack #48 ea tamsulosin 0.4 mg capsule 0.4 mg PO BID #180 caps 06/30/23 dronabinol 2.5 mg capsule 10 mg (4 x 2.5 mg) PO TID nausea 07/08/23 and vomiting 30 days #360 caps lorazepam 0.5 mg tablet 0.5 mg PO TID PRN anxiety #30 tabs 07/08/23 pantoprazole 20 mg tablet,delayed 20 mg PO DAILY #90 tabs 07/08/23 release hydromorphone 2 mg tablet 2 mg PO Q4-6H PRN pain #180 tabs 07/15/23 ondansetron 4 mg disintegrating See Rx Instructions .Route 07/15/23 tablet .COMPLEX PRN nausea and vomiting #180 tabs gabapentin 300 mg capsule 300 mg PO TID PRN pain #180 caps 07/16/23 hydromorphone 4 mg tablet 2 mg (1/2 x 4 mg) PO Q4-6H PRN 07/16/23 pain #90 tabs fentanyl 50 mcg/hr transdermal 1 patch transdermal Q72H #10 ea 07/19/23 patch Disabled Parking Permit See Rx Instructions .Route 09/09/23 .COMPLEX #1 unit lactulose 20 gram oral packet 20 g PO BID PRN constipation #30 ea 10/08/23 Allergies Allergy/AdvReac Type Severity Reaction Status Date / Time haloperidol [From Haldol] AdvReac Severe Agitated Verified 10/08/23 11:59 Patient History Medical History Neoplasm related pain Malignant neoplasm of pancreas GERD (gastroesophageal reflux disease) Bilateral hip pain Greater trochanteric bursitis of both hips Right hip pain Left hip pain Arthritis of left acromioclavicular joint Impingement of right shoulder Bilateral shoulder pain Social History Smoking Status: Former smoker Smoking Status: Former smoker tobacco type: cigarettes alcohol intake frequency: 0-2 drinks per day Substance Use Type: marijuana Exam Initial Vital Signs Initial Vital Signs: Vital Signs Temperature 97.3 F L 10/08/23 11:54 Pulse Rate 93 H 10/08/23 11:54 Respiratory Rate 16 10/08/23 11:54 Blood Pressure 168/100 H 10/08/23 11:54 Pulse Oximetry 98 10/08/23 11:54 Oxygen Delivery Method Room Air 10/08/23 11:54 GENERAL: Alert chronically ill 50-year-old male and in no acute distress. HEENT: Head atraumatic,EOMI, pupils reactive, face symmetric, moist mucous membranes CARDIOVASCULAR: Regular rate and rhythm without murmurs, rubs or gallops. RESPIRATORY: Breath sounds equal bilaterally, no wheezes rales or rhonchi. ABDOMEN: Soft. Normoactive bowel sounds all 4 quadrants. No guarding or rebound. Left lower quadrant pain no guarding or rebound no significant distention positive bowel sounds EXTREMITIES: Normal range of motion, no clubbing or edema. Neurovascularly intact NEUROLOGICAL: Alert and oriented x4.Normal gait and speech. SKIN: Warm, dry, no laceration, no petechiae, no rashes or lesions. Course Orders Ordered: ED Orders 10/08/23 12:07 Ammonia (NH3) Stat Complete Blood Count AUTO DIFF Stat Comprehensive Metabolic Panel Stat Lactate (Lactic Acid) Stat Lipase Stat 10/08/23 12:11 Urine Microscopic Stat 10/08/23 13:16 CT abdomen pelvis w con Stat Discontinued Medications Hydromorphone HCl (Hydromorphone 1 Mg Inj) 1 mg IV NOW ONE Stop: 10/08/23 13:17 Last Admin: 10/08/23 13:28 Dose: 1 mg Documented By: JUS Sodium Chloride (Normal Saline 0.9%) 1,000 mls @ 1,000 mls/hr IV BOLUS ONE Stop: 10/08/23 14:15 Last Infusion: 10/08/23 14:45 Dose: Infused Documented By: Admin: 10/08/23 13:28 Dose: 1,000 mls/hr Documented By: JUS Lactulose (Lactulose 20 Gm/30 Ml Solution) 20 gm PO NOW ONE Stop: 10/08/23 15:13 Last Admin: 10/08/23 15:30 Dose: 20 gm Documented By: RICHARD Prochlorperazine (Prochlorperazine 10 Mg/2 Ml Vial) 10 mg IV NOW ONE Stop: 10/08/23 13:17 Last Admin: 10/08/23 13:27 Dose: 10 mg Documented By: JUS Vital Signs Vital signs: Vital Signs - 8 hr 10/08/23 11:54 10/08/23 12:18 10/08/23 12:19 Temperature 97.3 F L Pulse Rate 93 H 86 Respiratory Rate 16 Blood Pressure 168/100 H Pulse Oximetry 98 96 97 Oxygen Delivery Method Room Air 10/08/23 12:19 10/08/23 12:30 10/08/23 12:30 Temperature Pulse Rate 79 Respiratory Rate 16 Blood Pressure 134/92 H 122/83 Pulse Oximetry 96 Oxygen Delivery Method Room Air 10/08/23 13:00 10/08/23 13:00 10/08/23 13:27 Temperature Pulse Rate 74 73 Respiratory Rate Blood Pressure 104/75 104/75 Pulse Oximetry 97 Oxygen Delivery Method 10/08/23 13:30 10/08/23 13:30 10/08/23 14:00 Temperature Pulse Rate 78 Respiratory Rate Blood Pressure 126/79 106/74 Pulse Oximetry 97 Oxygen Delivery Method 10/08/23 14:00 10/08/23 14:30 10/08/23 14:44 Temperature Pulse Rate 68 74 Respiratory Rate 14 Blood Pressure 124/78 Pulse Oximetry 96 97 Oxygen Delivery Method Room Air 10/08/23 14:44 10/08/23 15:00 10/08/23 15:00 Temperature Pulse Rate 76 74 Respiratory Rate Blood Pressure 120/75 Pulse Oximetry 98 97 Oxygen Delivery Method 10/08/23 15:30 10/08/23 15:31 Temperature Pulse Rate 75 Respiratory Rate Blood Pressure 147/89 H Pulse Oximetry 98 Oxygen Delivery Method MDM - Abdominal Pain Lab Data 10/08/23 12:07 10/08/23 12:07 Labs: Lab Results 10/08/23 10/08/23 Range/Units 12:07 12:11 WBC 3.9 L (4.5-11.0) X10^3/uL RBC 4.08 L (4.5-5.9) X10^6/uL Hgb 12.4 L (13.5-17.5) g/dL Hct 35.6 L (41-53) % MCV 87.3 (80-100) fL MCH 30.4 (26-34) PG MCHC 34.9 (30-36) % RDW 17.5 H (11.6-14.8) % Plt Count 107 L (150-400) X10^3/uL Neut % (Auto) 61.0 (50-75) % Lymph % (Auto) 19.6 L (25-40) % [place] % (Auto) 17.5 H (3-14) % Eos % (Auto) 1.3 L (2-4) % Baso % (Auto) 0.6 (0-2) % Neut # (Auto) 2400 (2738-5478) /uL Lymph # (Auto) 800 L (7243-9751) /uL [place] # (Auto) 700 (0-900) /uL Eos # (Auto) 100 (0-450) /uL Baso # (Auto) 0 (0-100) /uL Sodium 135 L (137-145) mmol/L Potassium 4.4 (3.4-5.1) mmol/L Chloride 104 (98-107) mmol/L Carbon Dioxide 21 L (22-32) mmol/L BUN 22 H (9-20) mg/dL Creatinine 1.05 (0.66-1.25) mg/dL Estimated GFR > 60 (>60) mL/min BUN/Creatinine Ratio 21.0 (6-22) Glucose 134 H (70-100) mg/dL Lactate 1.1 (0.7-2.1) mmol/L Calcium 9.2 (8.4-10.2) mg/dL Total Bilirubin 0.5 (0.2-1.3) mg/dL AST 47 (17-59) IU/L ALT 38 (<50) IU/L Alkaline Phosphatase 55 (38-126) U/L Ammonia < 9 L (9-30) umol/L Total Protein 7.2 (6.3-8.2) g/dL Albumin 4.2 (3.5-5.0) g/dL Globulin 3.0 (1.7-4.1) g/dL Albumin/Globulin Ratio 1.4 (1.0-2.8) Lipase 69 (23-300) U/L Urine RBC None seen (0-5/HPF) Urine WBC 0-1/hpf (0-5/HPF) Ur Squamous Epith Cells 0-1 /hpf (0-5/HPF) Calcium Oxalate Crystal Few H Urine Bacteria None seen (None) Ur Culture Indicated? Cult not indicated Vol Urine Centrifuged 10ml (spun) Point of care testing: Urine Dip Bedside Urine Glucose Negative Bedside Urine Bilirubin - Negative Bedside Urine Ketone +/- 5 Urine Specific [place] 1.030 Bedside Urine Occult Blood - Negative Bedside Urine pH 5.5 Bedside Urine Protein + 30 Bedside Urine Urobilinogen - Negative Bedside Urine Nitrite - Negative Bedside Urine Leukocytes +/- [address] scan - abdomen/pelvis: Radiologist's Impression: PROCEDURE: CT ABDOMEN PELVIS W CON INDICATIONS: blaoting pancreatic cancer TECHNIQUE: After the administration of intravenous contrast, axial sections acquired from the lung bases to the pubic symphysis. Coronal and sagittal reformats were performed. For radiation dose reduction, the following was used: automated exposure control, adjustment of mA and/or kV according to patient size. COMPARISON: [facility], [place], PET NECK TO MID THIGH, 07/16/2023, 8:20. [facility], CT, CT CHEST ABDOMEN PELVIS WITH CONTRAST, 09/28/2023, 16:21. [facility], CT, CT ABDOMEN PELVIS W CON, 09/08/2023, 22:27. FINDINGS: Image quality: Diagnostic. Lower Chest: No significant findings. ABDOMEN: Liver: No solid mass. Gallbladder: No radiopaque gallstones or wall thickening. Biliary ducts: No biliary dilation. Pancreas: No ductal dilation. The hypodensity involving the pancreatic body and tail has not changed appreciably from 10 days ago but had improved significantly with reference to prior PET-CT scanning from 07/16/23. As previously was the case there is mass effect against the upper aspect of the superior mesenteric vein as it crosses behind the pancreatic head, with secondary enlargement of the gastroepiploic veins and additional omental and mesenteric venous structures. Occlusion or tumor invasion in involving the superior mesenteric vein is not currently identified. The portal veins appear patent. Spleen: Size is within normal limits. Adrenal Glands: No adrenal nodules. Kidneys and Ureters: No hydronephrosis. No solid mass. No complex renal cystic lesion which requires follow up. Stomach and Bowel: Normal colonic caliber, without significant wall thickening. Peritoneum: No abnormal intraperitoneal fluid. No free air. Ventral Wall: No significant ventral hernia. Abdominal Nodes: No retroperitoneal or mesenteric adenopathy by size criteria. Vessels: Aorta and inferior vena cava are normal in size. PELVIS: Pelvic Organs: Unremarkable. Bladder: No bladder wall thickening, accounting for underdistention. Pelvic Nodes: No enlarged lymph nodes. Miscellaneous: No inguinal hernias are seen. Bones: No aggressive osseous abnormality. IMPRESSION: Stable appearance of the visualized abdomen and pelvis with reference to the recent comparison CT abdomen/pelvis 09/28/23. There is a pancreatic body and tail mass that has been previously documented and had improved from June of this year on the most recent comparison CT. Ascites or peritoneal carcinomatosis has not developed. 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 SMV invasion or occlusion has not developed at this time. Dictated by: Ivan Callaway M.D. on 10/08/2023 at 14:48 Approved by: Ivan Callaway M.D. on 10/08/2023 at 14:55 MDM Narrative Medical decision making narrative: YENI CC: Abdominal Complicating co-morbidities: Pancreatic cancer currently on chemotherapy, recent colitis treated with Augmentin September 07 Corroborating data: [ ] Data collected from: and patient Medical records reviewed: Previous ED visit Oncology known Differential considered: Metastatic disease, bowel obstruction constipation diverticulitis Exam documented above, pertinent findings include: Abdomen is mildly tender left lower quadrant no significant distention normal bowel sounds Lab Test results independently reviewed as above. Pertinent findings: WBC 3.9 hemoglobin 12.4 hematocrit 35.6 platelets 107, sodium 135 potassium 4.4 chloride 104 carbon dioxide 21 BUN 22 creatinine 1.0, lactate 1.1 bilirubin 0.5 AST 47 ALT 38 lipase 69 Imaging studies independently reviewed: CT abdomen shows stable appearance of abdomen and pelvis no evidence of ascites or peritoneal carcinomatosis. 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 No evidence of SMA the invasion or occlusion There is also no evidence of obstruction Consultations: None Treatments: Lactulose, IV fluids Dilaudid Compazine Re-evaluations: [ ] Discussion: Patient 50-year-old male currently undergoing chemotherapy for pancreatic cancer presenting today with abdominal pain. Last night he actually had rectal pressure and pain. CT today does not show any obstruction or comment on significant stool or impaction. Although when I reviewed the CT myself he does have quite a bit of stool. Abdomen is relatively typically soft and nonacute abdomen. Blood work has been reviewed and overall reassuring without evidence of neutropenia anemia or AZEEM. Discussion with patient he has offered an enema but he would rather go home and take lactulose which I think is reasonable. He feels like he is constipated he has not had any bowel movements for couple of days. Discharge Plan Departure Patient Disposition: Home Clinical Impression: Constipation Instructions: DI for Constipation Activity Restrictions/Additional Instructions: *You have been diagnosed with constipation *What to do: At this time CT and blood work are overall reassuring mild constipation noted on CT *Continue to take medications as directed Lactulose 10-20 g 1-2 times daily only as needed for constipation *Follow up with your primary care provider in 2-3 days or call [phone] *Return to ER if you should have increasing pain, vomiting unable to keep any fluids down or any new, worsening or concerning symptoms Prescriptions: New lactulose 20 gram packet 20 g PO BID PRN (Reason: constipation) Qty: 30 0RF No Action fluticasone propionate 50 mcg/actuation spray,suspension 1 spray intranasal DAILY Qty: 16 3RF Rx Instructions: administer into each nostril daily hydromorphone 2 mg tablet 2 mg PO Q4-6H PRN (Reason: pain) Qty: 180 0RF Hold Instructions: Home Medication placed on hold at Doctor's office Rx Instructions: Take 1 tab by mouth every 4-6 hours as needed for pain due to malignancy. EXEMPT ondansetron 4 mg tablet,disintegrating See Rx Instructions .ROUTE .COMPLEX PRN (Reason: nausea and vomiting) Qty: 180 3RF Rx Instructions: Take with Hydromorphone for the first few days of treatment, and every 6 hours as needed thereafter hydromorphone 4 mg tablet 2 mg PO Q4-6H PRN (Reason: pain) Qty: 90 0RF gabapentin 300 mg capsule 300 mg PO TID PRN (Reason: pain) Qty: 180 3RF Rx Instructions: 300mg TID as needed for breakthrough pain fentanyl 50 mcg/hr patch 72 hour 1 patch transdermal Q72H Qty: 10 0RF Rx Instructions: Replace topically every 72 hours for pain due to malignancy EXEMPT Disabled Parking Permit See Rx Instructions .ROUTE .COMPLEX Qty: 1 0RF Rx Instructions: I find this patient to be medically disabled and qualify for disabled parking as indicated and signed on the accompanying disabled parking application for individuals. baclofen 5 mg tablet 5 mg PO BEDTIME Qty: 90 3RF Rx Instructions: Take 1 tab at bedtime daily ibuprofen 400 mg tablet 400 mg PO Q8H PRN (Reason: pain) acetaminophen [Tylenol Extra Strength] 500 mg tablet 1,000 mg PO TID PRN (Reason: pain) Rx Instructions: NTE 3000mg/24 hours cetirizine [Allergy Relief (cetirizine)] 10 mg tablet 10 mg PO DAILY Qty: 90 3RF Rx Instructions: Take daily for allergies [facility] See Rx Instructions .ROUTE .COMPLEX Rx Instructions: Per package instructions - [place] OR Liquid; dronabinol 10 mg capsule 10 mg PO TID PRN (Reason: pain) Qty: 90 3RF Rx Instructions: Take 1 cap three times per day as needed for pain, equivalent to Nabilone dosing. prednisone 10 mg tablets,dose pack See Rx Instructions PO PER PKG DIR Qty: 48 0RF Rx Instructions: Days 1-4: 40 mg PO before breakfast Days 5-8: 30 mg PO before breakfast Days 9-12: 20 mg PO before breakfast Days 13-17: 10 mg PO before breakfast, on day 13 it is okay to re-start Advil, Ibuprofen, Aleve, Naproxen, or other non-steroidal anti-inflammatory medication) Days 18-19: 5 mg per day (only 0.5 tablet per day) tamsulosin 0.4 mg capsule 0.4 mg PO BID Qty: 180 3RF fenofibrate 160 mg tablet 160 mg PO DAILY Qty: 90 3RF dronabinol 2.5 mg capsule 10 mg PO TID 30 Days Qty: 360 3RF Rx Instructions: Take 4 caps by mouth TID pantoprazole 20 mg tablet,delayed release (DR/EC) 20 mg PO DAILY Qty: 90 3RF lorazepam 0.5 mg tablet 0.5 mg PO TID PRN (Reason: anxiety) Qty: 30 0RF Referrals: Catia Fonseca ARNP [Primary Care Provider] - Stand Alone Forms: Patient Portal/API
--- NOTE | 2023-10-08 13:16 | DI.CT.S_ITS ---
PROCEDURE: CT ABDOMEN PELVIS W CON INDICATIONS: blaoting pancreatic cancer TECHNIQUE: After the administration of intravenous contrast, axial sections acquired from the lung bases to the pubic symphysis. Coronal and sagittal reformats were performed. For radiation dose reduction, the following was used: automated exposure control, adjustment of mA and/or kV according to patient size. COMPARISON: [facility], [place], PET NECK TO MID THIGH, 07/16/2023, 8:20. [facility], CT, CT CHEST ABDOMEN PELVIS WITH CONTRAST, 09/28/2023, 16:21. [facility], CT, CT ABDOMEN PELVIS W CON, 09/08/2023, 22:27. FINDINGS: Image quality: Diagnostic. Lower Chest: No significant findings. ABDOMEN: Liver: No solid mass. Gallbladder: No radiopaque gallstones or wall thickening. Biliary ducts: No biliary dilation. Pancreas: No ductal dilation. The hypodensity involving the pancreatic body and tail has not changed appreciably from 10 days ago but had improved significantly with reference to prior PET-CT scanning from 07/16/23. As previously was the case there is mass effect against the upper aspect of the superior mesenteric vein as it crosses behind the pancreatic head, with secondary enlargement of the gastroepiploic veins and additional omental and mesenteric venous structures. Occlusion or tumor invasion in involving the superior mesenteric vein is not currently identified. The portal veins appear patent. Spleen: Size is within normal limits. Adrenal Glands: No adrenal nodules. Kidneys and Ureters: No hydronephrosis. No solid mass. No complex renal cystic lesion which requires follow up. Stomach and Bowel: Normal colonic caliber, without significant wall thickening. Peritoneum: No abnormal intraperitoneal fluid. No free air. Ventral Wall: No significant ventral hernia. Abdominal Nodes: No retroperitoneal or mesenteric adenopathy by size criteria. Vessels: Aorta and inferior vena cava are normal in size. PELVIS: Pelvic Organs: Unremarkable. Bladder: No bladder wall thickening, accounting for underdistention. Pelvic Nodes: No enlarged lymph nodes. Miscellaneous: No inguinal hernias are seen. Bones: No aggressive osseous abnormality. IMPRESSION: Stable appearance of the visualized abdomen and pelvis with reference to the recent comparison CT abdomen/pelvis 09/28/23. There is a pancreatic body and tail mass that has been previously documented and had improved from June of this year on the most recent comparison CT. Ascites or peritoneal carcinomatosis has not developed. 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 SMV invasion or occlusion has not developed at this time. Dictated by: Ivan Callaway M.D. on 10/08/2023 at 14:48 Approved by: Ivan Callaway M.D. on 10/08/2023 at 14:55
[2023-10-08] MEDS: PROCHLORPERAZINE 10 MG/2 ML VIAL IV (13:27)
[2023-10-08] MEDS: SODIUM CHLORIDE 0.9% 1,000 ML 1000 ML IV (13:28)
[2023-10-08] MEDS: HYDROMORPHONE 1 MG INJ IV (13:28)
[2023-10-08] MEDS: LACTULOSE 20 GM/30 ML SOLUTION PO (15:30)
== END 2023-10-08 15:40 | disposition home or self-care (01) ==
PROVIDERS: Emergency Provider Emergency Medicine; PCP Nurse Practitioner
DX: K59.00 Constipation, unspecified (principal); C25.9 Malignant neoplasm of pancreas, unspecified; R11.0 Nausea
CPT/HCPCS: 36415; 74177; 80053; 81003; 81015; 82140; 83605; 83690; 85025; 96361; 96374; 96375; 99284; J0780; J1170; Q9967

== ENCOUNTER 2023-10-27 19:41 | Emergency (ER) | payer OTHER, MEDICAID, SELFPAY ==
[2023-10-27] VITALS (7 sets, daily range): BP systolic 102–150; BP diastolic 67–93; PULSE 85–110; RESP 8–18; TEMP 36.9; O2SAT 96–98; BMI 25.5
--- NOTE | 2023-10-27 19:54 | DI.RAD.S_ITS ---
PROCEDURE: XR CHEST 1V INDICATIONS: suspected sepsis TECHNIQUE: One view of the chest was acquired. COMPARISON: [facility], CT, CT CHEST ABDOMEN PELVIS WITH CONTRAST, 09/28/2023, 16:21. FINDINGS: Surgical changes and devices: Right-sided port with the catheter tip at the middle 3rd of the SVC. Clips at the neck. Lungs and pleura: Lungs are clear. No pleural effusions or pneumothorax. Mediastinum: Mediastinal contours appear normal. Heart size is normal. Bones and chest wall: No suspicious bony lesions. Degenerative changes at the acromioclavicular joints. Overlying soft tissues appear unremarkable. IMPRESSION: No acute cardiopulmonary abnormality is seen. Dictated by: Stephen Cook M.D. on 10/27/2023 at 20:28 Approved by: Stephen Cook M.D. on 10/27/2023 at 20:30
--- NOTE | 2023-10-27 20:06 | EKG_ITS ---
[address] [address] Test Date: 2023-10-27 Pat Name: sAher Hernández Department: [facility] Room: Gender: Male [employer] Operator: IZABELA : 1965 Requested By: Order Number: [id number] Reading MD: Iggy Montez Measurements Intervals [place] Rate: 103 P: 67 ME: 174 QRS: 107 QRSD: 114 T: 52 QT: 366 QTc: 479 Interpretive Statements Sinus tachycardia Rightward axis Electronically Signed On 10-28-2023 9:28:47 PDT by Iggy Montez
[2023-10-27] MEDS: SODIUM CHLORIDE 0.9% 1,000 ML 1000 ML IV (20:30)
[2023-10-27 20:31] LABS: Add Manual Diff / Slide Review NO; Basophils Absolute Auto 0 /uL (0-100); Basophils Percent Auto 0.1 % (0-2); Eosinophils Absolute Auto 0 /uL (0-450); Eosinophils Percent Auto 0.5 % (2-4); Hematocrit 35.2 % (41-53); Hemoglobin 12.1 g/dL (13.5-17.5); Lymphocytes Absolute Auto 400 /uL (1100-4500); Lymphocytes Percent Auto 9.9 % (25-40); Mean Corpuscular HGB Conc 34.5 % (30-36); Mean Corpuscular Hemoglobin 29.9 PG (26-34); Mean Corpuscular Volume 86.8 fL (80-100); Monocytes Absolute Auto 1000 /uL (0-900); Monocytes Percent Auto 26.3 % (3-14); Neutrophils Absolute Auto 2400 /uL (1500-7000); Neutrophils Percent Auto 63.2 % (50-75); Platelet Count 182 X10^3/uL (150-400); Red Blood Cell Count 4.05 X10^6/uL (4.5-5.9); Red Cell Distribution Width 18.4 % (11.6-14.8); White Blood Cell Count 3.8 X10^3/uL (4.5-11.0)
[2023-10-27] MEDS: ONDANSETRON 4 MG/2 ML INJ IV (20:33)
[2023-10-27 20:38] LABS: INR 1.2 (0.9-1.3); Prothrombin Time 13.9 SECONDS (9.4-12.5)
[2023-10-27 20:41] LABS: PTT Partial Thromboplastin Tim 28 SECONDS (25.1-36.5)
[2023-10-27 20:43] LABS: Alanine Aminotransferase 27 IU/L (<50); Albumin 3.6 g/dL (3.5-5.0); Alkaline Phosphatase 66 U/L (38-126); Aspartate Aminotransferase 42 IU/L (17-59); BUN Creatinine Ratio 22.4 (6-22); Bilirubin Total 0.5 mg/dL (0.2-1.3); Blood Urea Nitrogen 17 mg/dL (9-20); Calcium 8.7 mg/dL (8.4-10.2); Carbon Dioxide 28 mmol/L (22-32); Chloride 96 mmol/L (98-107); Estimated Glomerular Filt Rate > 60 mL/min (>60); Globulin 3.5 g/dL (1.7-4.1); Glucose 154 mg/dL (70-100); HEMOLYSIS < 15 (0-50); Lipase 81 U/L (23-300); Potassium 3.7 mmol/L (3.4-5.1); Sodium 130 mmol/L (137-145); Total Protein 7.1 g/dL (6.3-8.2)
[2023-10-27 20:44] LABS: Lactate (Lactic Acid) 1.4 mmol/L (0.7-2.1)
[2023-10-27 21:00] LABS: Procalcitonin 0.163 ng/mL (<0.5)
--- NOTE | 2023-10-27 23:54 | ED_ITS ---
HPI - Nausea/Vomiting/Diarrhea General Chief complaint: Nausea/Vomiting/Diarrhea Stated complaint: cx pt, nausea and vomiting Time Seen by Provider: 10/27/23 23:54 Source: patient and family Mode of arrival: Family Vehicle History of Present Illness HPI Narrative: 58-year-old male with history of pancreatic cancer. Patient received his last chemotherapy dose 2 weeks ago. He has complaint of subjective fever, chills, nausea, vomiting and decreased p.o. intake over last 24 hours. Patient states he has had issues with nausea vomiting and abdominal pain intermittently. He did try his home medications including scopolamine patch and Zofran. Patient states abdominal pain was little bit worse than typical. I felt little bit more fatigued. States he was having some trouble keeping down fluids so presented to the ED. He states he felt fine 11:00 a.m. this morning just felt worse throughout the day. He states he feels much better after he received some fluids and antinausea medication here in the department. Denies any chest pain or shortness of breath. No cough cold or congestion symptoms. No syncope. No black or bloody stools but has not intermittently in the past and he states they are expected with his current diagnosis. States he had a small bowel movement earlier today. Denies urinary symptoms. Patient follows with [facility]. He is accompanied by his . Related Data Home Medications Medication Instructions Recorded Confirmed [facility] See Rx Instructions .Route .COMPLEX 03/03/23 07/14/23 acetaminophen 500 mg tablet 1,000 mg PO TID PRN pain 03/03/23 07/14/23 (Tylenol Extra Strength) ibuprofen 400 mg tablet 400 mg PO Q8H PRN pain 03/03/23 07/14/23 Previous Rx's Medication Instructions Recorded baclofen 5 mg tablet 5 mg PO BEDTIME #90 tabs 03/03/23 cetirizine 10 mg tablet (Allergy 10 mg PO DAILY #90 tabs 03/03/23 Relief (cetirizine)) fluticasone propionate 50 1 spray intranasal DAILY #16 grams 05/31/23 mcg/actuation nasal spray,suspension dronabinol 10 mg capsule 10 mg PO TID PRN pain #90 caps 06/30/23 fenofibrate 160 mg tablet 160 mg PO DAILY #90 tabs 06/30/23 prednisone 10 mg tablets in a dose See Rx Instructions PO PER PKG DIR 06/30/23 pack #48 ea tamsulosin 0.4 mg capsule 0.4 mg PO BID #180 caps 06/30/23 dronabinol 2.5 mg capsule 10 mg (4 x 2.5 mg) PO TID nausea 07/08/23 and vomiting 30 days #360 caps lorazepam 0.5 mg tablet 0.5 mg PO TID PRN anxiety #30 tabs 07/08/23 pantoprazole 20 mg tablet,delayed 20 mg PO DAILY #90 tabs 07/08/23 release hydromorphone 2 mg tablet 2 mg PO Q4-6H PRN pain #180 tabs 07/15/23 ondansetron 4 mg disintegrating See Rx Instructions .Route 07/15/23 tablet .COMPLEX PRN nausea and vomiting #180 tabs gabapentin 300 mg capsule 300 mg PO TID PRN pain #180 caps 07/16/23 hydromorphone 4 mg tablet 2 mg (1/2 x 4 mg) PO Q4-6H PRN 07/16/23 pain #90 tabs fentanyl 50 mcg/hr transdermal 1 patch transdermal Q72H #10 ea 07/19/23 patch Disabled Parking Permit See Rx Instructions .Route 09/09/23 .COMPLEX #1 unit lactulose 20 gram oral packet 20 g PO BID PRN constipation #30 ea 10/08/23 Allergies Allergy/AdvReac Type Severity Reaction Status Date / Time haloperidol [From Haldol] AdvReac Severe Agitated Verified 10/08/23 11:59 Review of Systems Review of Systems ROS Unobtainable: All systems reviewed & are unremarkable except as noted in HPI and below Patient History Medical History Neoplasm related pain Malignant neoplasm of pancreas GERD (gastroesophageal reflux disease) Bilateral hip pain Greater trochanteric bursitis of both hips Right hip pain Left hip pain Arthritis of left acromioclavicular joint Impingement of right shoulder Bilateral shoulder pain Social History Smoking Status: Former smoker Smoking Status: Former smoker tobacco type: cigarettes alcohol intake frequency: 0-2 drinks per day Substance Use Type: marijuana Exam Narrative Exam Narrative: GENERAL: Alert and oriented x three, male in mild distress HEENT: Head normocephalic, atraumatic, EOMI, pupils reactive, face symmetric, moist mucous membranes NECK: Supple, full range of motion CARDIOVASCULAR: Regular rate and rhythm without murmurs, rubs or gallops. RESPIRATORY: Breath sounds equal bilaterally, no wheezes rales or rhonchi. ABDOMEN: Soft, nontender. Normoactive bowel sounds all 4 quadrants. No guarding or rebound, rigidity, no mass : No CVA tenderness EXTREMITIES: Normal range of motion, no clubbing or edema. Neurovascularly intact NEUROLOGICAL: Cranial nerves II through XII grossly intact. Moving all extremities SKIN: Warm, dry, no petechiae, no rashes or lesions. Initial Vital Signs Initial Vital Signs: Vital Signs Temperature 98.5 F 10/27/23 19:44 Pulse Rate 110 H 10/27/23 19:44 Respiratory Rate 16 10/27/23 19:44 Blood Pressure 150/93 H 10/27/23 19:44 Pulse Oximetry 98 10/27/23 19:44 Oxygen Delivery Method Room Air 10/27/23 19:44 Course Orders Ordered: ED Orders 10/27/23 20:18 Blood Culture Stat Complete Blood Count AUTO DIFF Stat Comprehensive Metabolic Panel Stat Lactate (Lactic Acid) Stat Lipase Stat PTT Partial Thromboplastin Kamari Stat Procalcitonin Stat Prothrombin Time INR Stat 10/28/23 00:00 Urine Microscopic Stat Discontinued Medications Sodium Chloride (Normal Saline 0.9%) 1,000 mls @ 1,000 mls/hr IV BOLUS ONE Stop: 10/27/23 20:53 Last Infusion: 10/27/23 23:36 Dose: Infused Documented By: Admin: 10/27/23 20:30 Dose: 1,000 mls/hr Documented By: DARYL Ondansetron HCl (Ondansetron 4 Mg/2 Ml Inj) 4 mg IV NOW PRN PRN Reason: Nausea And Vomiting Last Admin: 10/27/23 20:33 Dose: 4 mg Documented By: DARYL Ondansetron HCl (Ondansetron 4 Mg Odt) 4 mg SL NOW PRN PRN Reason: Nausea And Vomiting Vital Signs Vital signs: Vital Signs - 8 hr 10/27/23 21:24 10/27/23 21:30 10/27/23 21:30 Temperature Pulse Rate 86 86 Respiratory Rate 8 L 14 Blood Pressure 103/67 Pulse Oximetry 97 97 Oxygen Delivery Method 10/27/23 22:00 10/27/23 22:00 10/27/23 22:30 Temperature Pulse Rate 89 Respiratory Rate 15 Blood Pressure 106/70 109/69 Pulse Oximetry 96 Oxygen Delivery Method 10/27/23 22:30 10/27/23 23:00 10/27/23 23:00 Temperature Pulse Rate 85 92 H Respiratory Rate 13 18 Blood Pressure 112/68 Pulse Oximetry 96 97 Oxygen Delivery Method 10/27/23 23:30 10/27/23 23:30 10/28/23 00:00 Temperature Pulse Rate 86 Respiratory Rate 13 Blood Pressure 102/69 102/67 Pulse Oximetry 96 Oxygen Delivery Method 10/28/23 00:00 10/28/23 00:24 10/28/23 00:24 Temperature Pulse Rate 87 89 Respiratory Rate 20 Blood Pressure 100/56 L Pulse Oximetry 97 97 Oxygen Delivery Method Room Air 10/28/23 00:27 Temperature 98.4 F Pulse Rate 85 Respiratory Rate 18 Blood Pressure 100/54 L Pulse Oximetry 99 Oxygen Delivery Method Room Air MDM - Nausea/Vomiting/Diarrhea Lab Data 10/27/23 20:18 10/27/23 20:18 Labs: Lab Results 10/27/23 10/27/23 Range/Units 20:18 21:02 WBC 3.8 L (4.5-11.0) X10^3/uL RBC 4.05 L (4.5-5.9) X10^6/uL Hgb 12.1 L (13.5-17.5) g/dL Hct 35.2 L (41-53) % MCV 86.8 (80-100) fL MCH 29.9 (26-34) PG MCHC 34.5 (30-36) % RDW 18.4 H (11.6-14.8) % Plt Count 182 (150-400) X10^3/uL Neut % (Auto) 63.2 (50-75) % Lymph % (Auto) 9.9 L (25-40) % [place] % (Auto) 26.3 H (3-14) % Eos % (Auto) 0.5 L (2-4) % Baso % (Auto) 0.1 (0-2) % Neut # (Auto) 2400 (3091-2418) /uL Lymph # (Auto) 400 L (7601-2878) /uL [place] # (Auto) 1000 H (0-900) /uL Eos # (Auto) 0 (0-450) /uL Baso # (Auto) 0 (0-100) /uL PT 13.9 H (9.4-12.5) SECONDS INR 1.2 (0.9-1.3) APTT 28 (25.1-36.5) SECONDS Sodium 130 L (137-145) mmol/L Potassium 3.7 (3.4-5.1) mmol/L Chloride 96 L (98-107) mmol/L Carbon Dioxide 28 (22-32) mmol/L BUN 17 (9-20) mg/dL Creatinine 0.76 (0.66-1.25) mg/dL Estimated GFR > 60 (>60) mL/min BUN/Creatinine Ratio 22.4 H (6-22) Glucose 154 H (70-100) mg/dL Lactate 1.4 (0.7-2.1) mmol/L Calcium 8.7 (8.4-10.2) mg/dL Total Bilirubin 0.5 (0.2-1.3) mg/dL AST 42 (17-59) IU/L ALT 27 (<50) IU/L Alkaline Phosphatase 66 (38-126) U/L Total Protein 7.1 (6.3-8.2) g/dL Albumin 3.6 (3.5-5.0) g/dL Globulin 3.5 (1.7-4.1) g/dL Albumin/Globulin Ratio 1.0 (1.0-2.8) Lipase 81 (23-300) U/L Procalcitonin 0.163 (<0.5) ng/mL Urine RBC None seen (0-5/HPF) Urine WBC None seen (0-5/HPF) Ur Squamous Epith Cells 1-5 /hpf (0-5/HPF) Calcium Oxalate Crystal Many H Urine Bacteria None seen (None) Urine Mucus 1+ H (Negative) Ur Culture Indicated? Cult not indicated Vol Urine Centrifuged 10ml (spun) Urine Dip Bedside Urine Glucose Negative Bedside Urine Bilirubin + 1 Bedside Urine Ketone +/- 5 Urine Specific [place] 1.020 Bedside Urine Occult Blood - Negative Bedside Urine pH 6.0 Bedside Urine Protein + 30 Bedside Urine Urobilinogen - Negative Bedside Urine Nitrite - Negative Bedside Urine Leukocytes +/- 15 Esterase Imaging Data Chest x-ray: Radiologist's Impression: Close Chest X-Ray (Signed) Stephen Cook - 10/27/23 Abdomen/Pelvis CT (Signed) Ivan Callaway - 10/08/23 Abdomen/Pelvis CT (Signed) Will Mejias - 09/08/23 Abdomen MRI with MRCP (Signed) Flori Swainng - 07/14/23 Abdomen Ultrasound (Signed) Rola Mckeon - 07/14/[address] (Signed) Stephen Cook - 07/13/23 Chest/Abdomen/Pelvis CT (Signed) Pa Galicia - 06/22/23 Hip X-Ray (Signed) Grayson Flowers - 06/03/23 Shoulder X-Ray (Signed) KorinaGer - 03/18/23 Shoulder X-Ray (Signed) HuiGer - 03/18/23 DI Result 05/31/14 Launch?[place] [address] XRay Report Signed Patient: Asher Hernández MR#: [id number] : 1965 Acct:[id number] Age/Sex: 58 / M Date of Service: 10/27/23 Loc: ED Accession Number: [id number] Procedure: XR chest 1V Ordering Provider: Shabana Shell D.O. PROCEDURE: XR CHEST 1V INDICATIONS: suspected sepsis TECHNIQUE: One view of the chest was acquired. COMPARISON: [facility], CT, CT CHEST ABDOMEN PELVIS WITH CONTRAST, 09/28/2023, 16:21. FINDINGS: Surgical changes and devices: Right-sided port with the catheter tip at the middle 3rd of the SVC. Clips at the neck. Lungs and pleura: Lungs are clear. No pleural effusions or pneumothorax. Mediastinum: Mediastinal contours appear normal. Heart size is normal. Bones and chest wall: No suspicious bony lesions. Degenerative changes at the acromioclavicular joints. Overlying soft tissues appear unremarkable. IMPRESSION: No acute cardiopulmonary abnormality is seen. Dictated by: Stephen Cook M.D. on 10/27/2023 at 20:28 Approved by: Stephen Cook M.D. on 10/27/2023 at 20:30 ECG Data Attestation: I personally reviewed and interpreted this ECG as follows: Interpretation: EKG shows sinus tach rate of 103 [place] 174 QRS of 114 QTC 479.? Rightward axis.? No acute ST elevation depression MDM Narrative Medical decision making narrative: Labs white count of 3.8 patient was 3 point on 10/08/2019 hemoglobin is 12.1 platelets are 182. They have improved from 10/08/2023. In August patient had normal white count and platelets as well as hemoglobin. INR 1.2. Sodium of 130 has decreased from 03/16 5 on the 07 of October, potassium 3.7 chloride 96 CO2 is 28 BUN 17 creatinine 0.76 glucose is 154 lactate 1.4 LFTs are negative. Procalcitonin 0.163. Chest x-ray is negative Point of care urine positive for protein, positive for leukocyte esterase. Positive for ketones. EKG shows sinus tach rate of 103 [place] 174 QRS of 114 QTC 479. Rightward axis. No acute ST elevation depression. Patient received fluids and Zofran. Patient states he is feeling much improved. Notes the chills are different but states his other symptoms are somewhat typical and he has them intermittently. Patient's systolic blood pressure was 100 on most recent check. His tachycardia has resolved he is continued to be afebrile he states he feels much better. Discussed giving additional L of and CT abdomen pelvis. Patient defers and would like to be discharged home. Discussed he does have risk factors for potential sepsis and bacteremia. Patient understands blood cultures are pending. Could be a component of dehydration as well. Discussed with patient and family low threshold to return as he is high-risk for complications. Discharge Plan Departure Patient Disposition: Home Clinical Impression: Vomiting, Abdominal pain Activity Restrictions/Additional Instructions: Please return at any time if you are feeling worse. As discussed, your blood pressure is little bit low prior to your discharge. This could be from dehydration but can also be from infection. You have blood cultures pending, these take about 48-72 hours to result. If positive you would be contacted to return. Please return for fevers, persistent chills or rigors, recurrent abdominal pain, any persistent vomiting, any black or bloody stools, if you are not having any bowel movements or flatus for more than 24 hours or other new or concerning changes. Prescriptions: No Action fluticasone propionate 50 mcg/actuation spray,suspension 1 spray intranasal DAILY Qty: 16 3RF Rx Instructions: administer into each nostril daily hydromorphone 2 mg tablet 2 mg PO Q4-6H PRN (Reason: pain) Qty: 180 0RF Hold Instructions: Home Medication placed on hold at Doctor's office Rx Instructions: Take 1 tab by mouth every 4-6 hours as needed for pain due to malignancy. EXEMPT ondansetron 4 mg tablet,disintegrating See Rx Instructions .ROUTE .COMPLEX PRN (Reason: nausea and vomiting) Qty: 180 3RF Rx Instructions: Take with Hydromorphone for the first few days of treatment, and every 6 hours as needed thereafter hydromorphone 4 mg tablet 2 mg PO Q4-6H PRN (Reason: pain) Qty: 90 0RF gabapentin 300 mg capsule 300 mg PO TID PRN (Reason: pain) Qty: 180 3RF Rx Instructions: 300mg TID as needed for breakthrough pain fentanyl 50 mcg/hr patch 72 hour 1 patch transdermal Q72H Qty: 10 0RF Rx Instructions: Replace topically every 72 hours for pain due to malignancy EXEMPT Disabled Parking Permit See Rx Instructions .ROUTE .COMPLEX Qty: 1 0RF Rx Instructions: I find this patient to be medically disabled and qualify for disabled parking as indicated and signed on the accompanying disabled parking application for individuals. baclofen 5 mg tablet 5 mg PO BEDTIME Qty: 90 3RF Rx Instructions: Take 1 tab at bedtime daily ibuprofen 400 mg tablet 400 mg PO Q8H PRN (Reason: pain) acetaminophen [Tylenol Extra Strength] 500 mg tablet 1,000 mg PO TID PRN (Reason: pain) Rx Instructions: NTE 3000mg/24 hours cetirizine [Allergy Relief (cetirizine)] 10 mg tablet 10 mg PO DAILY Qty: 90 3RF Rx Instructions: Take daily for allergies [facility] See Rx Instructions .ROUTE .COMPLEX Rx Instructions: Per package instructions - [place] OR Liquid; dronabinol 10 mg capsule 10 mg PO TID PRN (Reason: pain) Qty: 90 3RF Rx Instructions: Take 1 cap three times per day as needed for pain, equivalent to Nabilone dosing. prednisone 10 mg tablets,dose pack See Rx Instructions PO PER PKG DIR Qty: 48 0RF Rx Instructions: Days 1-4: 40 mg PO before breakfast Days 5-8: 30 mg PO before breakfast Days 9-12: 20 mg PO before breakfast Days 13-17: 10 mg PO before breakfast, on day 13 it is okay to re-start Advil, Ibuprofen, Aleve, Naproxen, or other non-steroidal anti-inflammatory medication) Days 18-19: 5 mg per day (only 0.5 tablet per day) tamsulosin 0.4 mg capsule 0.4 mg PO BID Qty: 180 3RF fenofibrate 160 mg tablet 160 mg PO DAILY Qty: 90 3RF dronabinol 2.5 mg capsule 10 mg PO TID 30 Days Qty: 360 3RF Rx Instructions: Take 4 caps by mouth TID pantoprazole 20 mg tablet,delayed release (DR/EC) 20 mg PO DAILY Qty: 90 3RF lorazepam 0.5 mg tablet 0.5 mg PO TID PRN (Reason: anxiety) Qty: 30 0RF lactulose 20 gram packet 20 g PO BID PRN (Reason: constipation) Qty: 30 0RF Referrals: Catia Fonseca ARNP [Primary Care Provider] - Stand Alone Forms: Patient Portal/API
[2023-10-28] VITALS: BP 102/67; PULSE 87; RESP 20; O2SAT 97
[2023-10-28 00:20] LABS: Bacteria Urine None Seen; Calcium Oxalate Crystals Urine Many; Culture Indicated Urine Cult Not Indicated; Mucus Urine 1+ (Negative); RBC Urine None Seen (0-5/HPF); Squamous Epithelial Cell Urine 1-5 /HPF (0-5/HPF); Urine Volume 10mL (spun); WBC Urine None Seen (0-5/HPF)
[2023-10-28 00:24] VITALS: BP 100/56; PULSE 89; O2SAT 97
[2023-10-28 00:27] VITALS: BP 100/54; PULSE 85; RESP 18; TEMP 36.9; O2SAT 99
== END 2023-10-28 00:30 | disposition home or self-care (01) ==
PROVIDERS: Emergency Provider Emergency Medicine; PCP Nurse Practitioner
DX: R10.9 Unspecified abdominal pain (principal); R11.10 Vomiting, unspecified; R00.0 Tachycardia, unspecified; C25.9 Malignant neoplasm of pancreas, unspecified
CPT/HCPCS: 36415; 71045; 80053; 81003; 81015; 83605; 83690; 84145; 85025; 85610; 85730; 87040; 93005; 96361; 96374; 99284; J2405

== ENCOUNTER 2023-12-09 18:08 | Emergency (ER) | payer OTHER, MEDICAID, SELFPAY ==
[2023-12-09] VITALS (14 sets, daily range): BP systolic 96–145; BP diastolic 56–92; PULSE 99–125; RESP 13–20; TEMP 37.5; O2SAT 94–98; BMI 25.0
--- NOTE | 2023-12-09 18:21 | DI.RAD.S_ITS ---
PROCEDURE: XR CHEST 1V INDICATIONS: suspected sepsis TECHNIQUE: One view of the chest was acquired. COMPARISON: [facility], CT, CT CHEST ABDOMEN PELVIS WITH CONTRAST, 09/28/2023, 16:21. [facility], CR, XR CHEST 2 VIEWS, 12/07/2023, 15:31. [facility], CR, XR CHEST 1V, 10/27/2023, 20:02. FINDINGS: Surgical changes and devices: Right Port-A-Cath distal tip overlying the cavoatrial junction Lungs and pleura: Lungs are clear. No pleural effusions or pneumothorax. Mediastinum: Mediastinal contours appear normal. Heart size is normal. Bones and chest wall: No suspicious bony lesions. Overlying soft tissues appear unremarkable. IMPRESSION: No acute cardiothoracic process. Dictated by: Ulises Gunderson M.D. on 12/09/2023 at 19:02 Approved by: Ulises Gunderson M.D. on 12/09/2023 at 19:04
[2023-12-09] MEDS: SODIUM CHLORIDE 0.9% 1,000 ML 1000 ML IV (18:56)
[2023-12-09 19:05] LABS: Add Manual Diff / Slide Review NO; Basophils Absolute Auto 0 /uL (0-100); Basophils Percent Auto 0.4 % (0-2); Eosinophils Absolute Auto 0 /uL (0-450); Eosinophils Percent Auto 0.4 % (2-4); Hematocrit 34.3 % (41-53); Hemoglobin 11.7 g/dL (13.5-17.5); Lymphocytes Absolute Auto 500 /uL (1100-4500); Lymphocytes Percent Auto 10.8 % (25-40); Mean Corpuscular HGB Conc 34.2 % (30-36); Mean Corpuscular Hemoglobin 30.8 PG (26-34); Mean Corpuscular Volume 90.2 fL (80-100); Monocytes Absolute Auto 200 /uL (0-900); Monocytes Percent Auto 3.8 % (3-14); Neutrophils Absolute Auto 4000 /uL (1500-7000); Neutrophils Percent Auto 84.6 % (50-75); Platelet Count 66 X10^3/uL (150-400); Red Cell Distribution Width 17.5 % (11.6-14.8); White Blood Cell Count 4.7 X10^3/uL (4.5-11.0)
--- NOTE | 2023-12-09 19:10 | EKG_ITS ---
[place] [address] [place] [id number] Test Date: 2023-12-09 Pat Name: Asher Hernández Department: [facility] Room: Gender: Male Medical Administrative Assistant: PAOLA : 1965 Requested By: Order Number: [id number] Reading MD: Iggy Montez Measurements Intervals [place] Rate: 103 P: 42 [place]: 180 QRS: 53 QRSD: 106 T: 36 QT: 356 QTc: 466 Interpretive Statements Sinus tachycardia Electronically Signed On 12-10-2023 9:06:15 PDT by Iggy Montez
[2023-12-09 19:12] LABS: INR 1.2 (0.9-1.3); Prothrombin Time 14.1 SECONDS (9.4-12.5)
[2023-12-09 19:14] LABS: Lactate (Lactic Acid) 1.1 mmol/L (0.7-2.1); PTT Partial Thromboplastin Tim 34 SECONDS (25.1-36.5)
[2023-12-09 19:15] LABS: Alanine Aminotransferase 42 IU/L (<50); Albumin 3.8 g/dL (3.5-5.0); Albumin Globulin Ratio 1.4 (1.0-2.8); Alkaline Phosphatase 55 U/L (38-126); Aspartate Aminotransferase 68 IU/L (17-59); BUN Creatinine Ratio 20.3 (6-22); Bilirubin Total 0.8 mg/dL (0.2-1.3); Blood Urea Nitrogen 14 mg/dL (9-20); Calcium 8.6 mg/dL (8.4-10.2); Carbon Dioxide 26 mmol/L (22-32); Chloride 102 mmol/L (98-107); Estimated Glomerular Filt Rate > 60 mL/min (>60); Globulin 2.8 g/dL (1.7-4.1); Glucose 140 mg/dL (70-100); HEMOLYSIS < 15 (0-50); Lipase 55 U/L (23-300); Potassium 3.4 mmol/L (3.4-5.1); Sodium 133 mmol/L (137-145); Total Protein 6.6 g/dL (6.3-8.2)
--- NOTE | 2023-12-09 19:18 | PC.NURSE ---
Denies diarrhea. States he has been nauseous and weak following new chemo therapy. Alert and oriented x4. GCS 15. Respirations regular and unlabored. No redness or swelling noted around port site.
[2023-12-09 19:32] LABS: Procalcitonin 5.48 ng/mL (<0.5)
--- NOTE | 2023-12-09 20:02 | ED_ITS ---
HPI - General Adult General Chief complaint: Fever Stated complaint: hx pancreatic cancer, fever, chills Time Seen by Provider: 12/09/23 19:05 Source: patient Mode of arrival: Ambulatory History of Present Illness HPI narrative: 58-year-old male with diagnosis of stage III pancreatic cancer June 2023, initial oncology care through [facility], right chest Port-A-Cath, 5 FU initial chemotherapy, more recently switched to oncologist Dr. Espinoza in [place], patient anticipating surgery [facility] upcoming. Today had fever measured 101.4, feeling chills, muscle aches. Denies cough or shortness of breath. Some global headache, no photophobia, no neck pain. No sore throat symptoms. No significant increase in his chronic abdominal pain, taking methadone. Did have loose stools without black or red color recent days. No recent exposure to antibiotics. Denies cough or shortness of breath, denies chest pain. Denies skin rash. Recently had 1st chemotherapy infusion on Wednesday 4 days ago of Valeria ABX, apparently via insurance was a higher dose than anticipated. No skin rash changes, hives, erythema. Related Data Home Medications Medication Instructions Recorded Confirmed [facility] See Rx Instructions .Route .COMPLEX 03/03/23 07/14/23 acetaminophen 500 mg tablet 1,000 mg PO TID PRN pain 03/03/23 07/14/23 (Tylenol Extra Strength) ibuprofen 400 mg tablet 400 mg PO Q8H PRN pain 03/03/23 07/14/23 Previous Rx's Medication Instructions Recorded baclofen 5 mg tablet 5 mg PO BEDTIME #90 tabs 03/03/23 cetirizine 10 mg tablet (Allergy 10 mg PO DAILY #90 tabs 03/03/23 Relief (cetirizine)) fluticasone propionate 50 1 spray intranasal DAILY #16 grams 05/31/23 mcg/actuation nasal spray,suspension dronabinol 10 mg capsule 10 mg PO TID PRN pain #90 caps 06/30/23 fenofibrate 160 mg tablet 160 mg PO DAILY #90 tabs 06/30/23 prednisone 10 mg tablets in a dose See Rx Instructions PO PER PKG DIR 06/30/23 pack #48 ea tamsulosin 0.4 mg capsule 0.4 mg PO BID #180 caps 06/30/23 dronabinol 2.5 mg capsule 10 mg (4 x 2.5 mg) PO TID nausea 07/08/23 and vomiting 30 days #360 caps lorazepam 0.5 mg tablet 0.5 mg PO TID PRN anxiety #30 tabs 07/08/23 pantoprazole 20 mg tablet,delayed 20 mg PO DAILY #90 tabs 07/08/23 release hydromorphone 2 mg tablet 2 mg PO Q4-6H PRN pain #180 tabs 07/15/23 ondansetron 4 mg disintegrating See Rx Instructions .Route 07/15/23 tablet .COMPLEX PRN nausea and vomiting #180 tabs gabapentin 300 mg capsule 300 mg PO TID PRN pain #180 caps 07/16/23 hydromorphone 4 mg tablet 2 mg (1/2 x 4 mg) PO Q4-6H PRN 07/16/23 pain #90 tabs fentanyl 50 mcg/hr transdermal 1 patch transdermal Q72H #10 ea 07/19/23 patch Disabled Parking Permit See Rx Instructions .Route 09/09/23 .COMPLEX #1 unit lactulose 20 gram oral packet 20 g PO BID PRN constipation #30 ea 10/08/23 Allergies Allergy/AdvReac Type Severity Reaction Status Date / Time haloperidol [From Haldol] AdvReac Severe Agitated Verified 12/09/23 18:20 Review of Systems Review of Systems Narrative: See HPI Patient History Medical History Neoplasm related pain Malignant neoplasm of pancreas GERD (gastroesophageal reflux disease) Bilateral hip pain Greater trochanteric bursitis of both hips Right hip pain Left hip pain Arthritis of left acromioclavicular joint Impingement of right shoulder Bilateral shoulder pain Social History Smoking Status: Former smoker Smoking Status: Former smoker tobacco type: cigarettes alcohol intake frequency: 0-2 drinks per day Substance Use Type: marijuana Exam Narrative Exam Narrative: GENERAL: Well-developed patient, in mild distress. HEAD: Atraumatic. Normocephalic. EYES: Pupils equal round and reactive. Extraocular motions intact. No scleral icterus. No injection or drainage. ENT: Nose without bleeding, purulent drainage. Throat without erythema, tonsillar hypertrophy or exudate. Airway patent. NECK: Trachea midline. Non tender CARDIOVASCULAR: Regular rate and rhythm without murmurs, gallops, or rubs. RESPIRATORY: Clear to auscultation. Breath sounds equal bilaterally. No wheezes, rales, or rhonchi. Right chest Port-A-Cath in place GASTROINTESTINAL: Abdomen soft, non-tender, nondistended. EXTREMITIES: No edema or joint tenderness. BACK: Nontender without deformity or crepitance. No flank tenderness. NEURO: AOx3. Motor functions grossly nonfocal SKIN: No rash or erythema of visible areas Initial Vital Signs Initial Vital Signs: Vital Signs Temperature 99.5 F 12/09/23 18:15 Pulse Rate 125 H 12/09/23 18:15 Respiratory Rate 18 12/09/23 18:15 Blood Pressure 108/80 12/09/23 18:15 Pulse Oximetry 96 12/09/23 18:15 Oxygen Delivery Method Room Air 12/09/23 18:15 Course Orders Ordered: ED Orders 12/09/23 18:21 XR chest 1V Stat EKG-12 Lead Stat RT Consult Eval and Treat NOW 12/09/23 18:45 Complete Blood Count AUTO DIFF Stat Comprehensive Metabolic Panel Stat Lactate (Lactic Acid) Stat Lipase Stat PTT Partial Thromboplastin Kamari Stat Procalcitonin Stat Prothrombin Time INR Stat 12/09/23 18:48 Blood Culture Stat 12/09/23 20:42 CT abdomen pelvis w con Stat 12/09/23 20:43 Respiratory Panel (Film Array) Stat 12/09/23 20:46 Blood Culture Stat Discontinued Medications Hydromorphone HCl (Hydromorphone 1 Mg Inj) 0.5 mg IV NOW ONE Stop: 12/09/23 20:44 Last Admin: 12/09/23 21:11 Dose: 0.5 mg Documented By: Sodium Chloride (Normal Saline 0.9%) 1,000 mls @ 1,000 mls/hr IV BOLUS ONE Stop: 12/09/23 19:20 Last Infusion: 12/09/23 21:04 Dose: Infused Documented By: Admin: 12/09/23 18:56 Dose: 1,000 mls/hr Documented By: MIKI Ondansetron HCl (Ondansetron 4 Mg/2 Ml Inj) 4 mg IV NOW PRN PRN Reason: Nausea And Vomiting Ondansetron HCl (Ondansetron 4 Mg Odt) 4 mg SL NOW PRN PRN Reason: Nausea And Vomiting Ondansetron HCl (Ondansetron 4 Mg/2 Ml Inj) 4 mg IV NOW ONE Stop: 12/09/23 20:44 Last Admin: 12/09/23 21:15 Dose: Not Given Documented By: Vital Signs Vital signs: Vital Signs - 8 hr 12/09/23 18:15 12/09/23 18:34 12/09/23 18:52 Temperature 99.5 F Pulse Rate 125 H 115 H Respiratory Rate 18 Blood Pressure 108/80 113/79 Pulse Oximetry 96 95 Oxygen Delivery Method Room Air 12/09/23 18:52 12/09/23 19:00 12/09/23 19:00 Temperature Pulse Rate 110 H 106 H Respiratory Rate 18 19 Blood Pressure 110/77 Pulse Oximetry 95 94 Oxygen Delivery Method 12/09/23 19:21 12/09/23 19:21 12/09/23 19:30 Temperature Pulse Rate 110 H Respiratory Rate Blood Pressure 145/92 H 115/73 Pulse Oximetry 96 Oxygen Delivery Method 12/09/23 19:30 12/09/23 19:59 12/09/23 20:00 Temperature Pulse Rate 108 H 106 H 109 H Respiratory Rate 20 13 16 Blood Pressure 111/74 Pulse Oximetry 96 94 95 Oxygen Delivery Method Room Air Room Air 12/09/23 20:00 12/09/23 20:30 12/09/23 20:30 Temperature Pulse Rate 106 H 106 H Respiratory Rate 16 17 Blood Pressure 96/56 L Pulse Oximetry 94 94 Oxygen Delivery Method 12/09/23 21:04 12/09/23 21:05 12/09/23 21:05 Temperature Pulse Rate 110 H 108 H Respiratory Rate 15 16 15 Blood Pressure 137/86 Pulse Oximetry 97 98 97 Oxygen Delivery Method Room Air 12/09/23 21:30 12/09/23 21:30 12/09/23 22:00 Temperature Pulse Rate 104 H 99 H Respiratory Rate 14 16 Blood Pressure 98/60 Pulse Oximetry 94 94 Oxygen Delivery Method Room Air 12/09/23 22:00 12/09/23 22:30 12/09/23 22:30 Temperature Pulse Rate 103 H Respiratory Rate 20 Blood Pressure 106/65 111/72 Pulse Oximetry 96 Oxygen Delivery Method Room Air Medical Decision Making Lab Data Lab results reviewed: Yes I reviewed the patient's lab results. Lab results narrative: White blood cell count 4700, hemoglobin 11.7, platelets 67132 decreased. Sodium 133, potassium 3.4, serum CO2 26, BUN creatinine normal, glucose 140 noted. LFTs unremarkable. Lipase 55 normal. Urine dip negative. 12/09/23 18:45 12/09/23 18:45 Labs: Lab Results 12/09/23 12/09/23 Range/Units 18:45 20:43 WBC 4.7 (4.5-11.0) X10^3/uL RBC 3.80 L (4.5-5.9) X10^6/uL Hgb 11.7 L (13.5-17.5) g/dL Hct 34.3 L (41-53) % MCV 90.2 (80-100) fL MCH 30.8 (26-34) PG MCHC 34.2 (30-36) % RDW 17.5 H (11.6-14.8) % Plt Count 66 L (150-400) X10^3/uL Neut % (Auto) 84.6 H (50-75) % Lymph % (Auto) 10.8 L (25-40) % [place] % (Auto) 3.8 (3-14) % Eos % (Auto) 0.4 L (2-4) % Baso % (Auto) 0.4 (0-2) % Neut # (Auto) 4000 (1811-2097) /uL Lymph # (Auto) 500 L (3785-6410) /uL [place] # (Auto) 200 (0-900) /uL Eos # (Auto) 0 (0-450) /uL Baso # (Auto) 0 (0-100) /uL PT 14.1 H (9.4-12.5) SECONDS INR 1.2 (0.9-1.3) APTT 34 (25.1-36.5) SECONDS Sodium 133 L (137-145) mmol/L Potassium 3.4 (3.4-5.1) mmol/L Chloride 102 (98-107) mmol/L Carbon Dioxide 26 (22-32) mmol/L BUN 14 (9-20) mg/dL Creatinine 0.69 (0.66-1.25) mg/dL Estimated GFR > 60 (>60) mL/min BUN/Creatinine Ratio 20.3 (6-22) Glucose 140 H (70-100) mg/dL Lactate 1.1 (0.7-2.1) mmol/L Calcium 8.6 (8.4-10.2) mg/dL Total Bilirubin 0.8 (0.2-1.3) mg/dL AST 68 H (17-59) IU/L ALT 42 (<50) IU/L Alkaline Phosphatase 55 (38-126) U/L Total Protein 6.6 (6.3-8.2) g/dL Albumin 3.8 (3.5-5.0) g/dL Globulin 2.8 (1.7-4.1) g/dL Albumin/Globulin Ratio 1.4 (1.0-2.8) Lipase 55 (23-300) U/L Procalcitonin 5.48 H (<0.5) ng/mL Chlamy pneumoniae PCR Not detected (Not Detect) Adenovirus (PCR) Not detected (Not Detect) B. pertussis DNA (PCR) Not detected (Not Detect) B.parapertussis DNA PCR Not detected (Not Detecte) Coronavirus OC43 (PCR) Not detected (Not Detect) Coronavirus HKU1 (PCR) Not detected (Not Detect) Coronavirus 229E (PCR) Not detected (Not Detect) SARS-CoV-2 (PCR) Not detected (Not Detecte) Coronavirus NL63 (PCR) Not detected (Not Detect) Human Metapneumovir PCR Not detected (Not Detect) Influenza Type A (PCR) Not detected (Not Detect) Influenza Type B (PCR) Not detected (Not Detect) M. pneumoniae (PCR) Not detected (Not Detect) Parainfluenza 1 (PCR) Not detected (Not Detect) Parainfluenza 2 (PCR) Not detected (Not Detect) Parainfluenza 3 (PCR) Not detected (Not Detect) Parainfluenza 4 (PCR) Not detected (Not Detect) RSV (PCR) Not detected (Not Detect) Entero/Rhino (PCR) Not detected (Not Detect) Urine Dip Bedside Urine Glucose Negative Bedside Urine Bilirubin - Negative Bedside Urine Ketone - Negative Urine Specific [place] 1.015 Bedside Urine Occult Blood - Negative Bedside Urine pH 6.0 Bedside Urine Protein - Negative Bedside Urine Urobilinogen - Negative Bedside Urine Nitrite - Negative Bedside Urine Leukocytes - Negative Esterase Point of care testing: Urine Dip Bedside Urine Glucose Negative Bedside Urine Bilirubin - Negative Bedside Urine Ketone - Negative Urine Specific [place] 1.015 Bedside Urine Occult Blood - Negative Bedside Urine pH 6.0 Bedside Urine Protein - Negative Bedside Urine Urobilinogen - Negative Bedside Urine Nitrite - Negative Bedside Urine Leukocytes - Negative Esterase Imaging Data Chest x-ray: Radiologist's Impression: Close Chest X-Ray (Signed) Ulises Gunderson - 12/09/23 Launch?[address] [address] XRay Report Signed Patient: Asher Hernández MR#: [id number] : 1965 Acct:[id number] Age/Sex: 58 / M Date of Service: 12/09/23 Loc: ED Accession Number: [id number] Procedure: XR chest 1V Ordering Provider: Fabio Gallego MD PROCEDURE: XR CHEST 1V INDICATIONS: suspected sepsis TECHNIQUE: One view of the chest was acquired. COMPARISON: [facility], CT, CT CHEST ABDOMEN PELVIS WITH CONTRAST, 09/28/2023, 16:21. [facility], CR, XR CHEST 2 VIEWS, 12/07/2023, 15:31. [facility], CR, XR CHEST 1V, 10/27/2023, 20:02. FINDINGS: Surgical changes and devices: Right Port-A-Cath distal tip overlying the cavoatrial junction Lungs and pleura: Lungs are clear. No pleural effusions or pneumothorax. Mediastinum: Mediastinal contours appear normal. Heart size is normal. Bones and chest wall: No suspicious bony lesions. Overlying soft tissues appear unremarkable. IMPRESSION: No acute cardiothoracic process. Dictated by: Ulises Gunderson M.D. on 12/09/2023 at 19:02 Approved by: Ulises Gunderson M.D. on 12/09/2023 at 19:04 CT scan - abdomen/pelvis: Radiologist's Impression: Close Abdomen/Pelvis CT (Signed) Christopher Rodrigues - 12/09/23 Chest X-Ray (Signed) Ulises Gunderson - 12/09/23 Launch?[address] [address] [address] Scan Report Signed Patient: Asher Hernández MR#: [id number] : 1965 Acct:[id number] Age/Sex: 58 / M Date of Service: 12/09/23 Loc: ED Accession Number: [id number] Procedure: CT abdomen pelvis w con Ordering Provider: Fabio Gallego MD PROCEDURE: CT ABDOMEN PELVIS W CON INDICATIONS: fever, hx panc CA, new chemo Wednesday TECHNIQUE: After the administration of intravenous contrast, axial sections acquired from the lung bases to the pubic symphysis. Coronal and sagittal reformats were performed. For radiation dose reduction, the following was used: automated exposure control, adjustment of mA and/or kV according to patient size. COMPARISON: [facility], [place], PET NECK TO MID THIGH, 07/16/2023, 8:20. [facility], CT, CT ABDOMEN PELVIS W CON, 10/08/2023, 14:07. [facility], CT, CT ABDOMEN PELVIS W CON, 09/08/2023, 22:27. FINDINGS: Image quality: Diagnostic. Lower Chest: No significant findings. Mild dependent atelectasis in the lung bases. ABDOMEN: Liver: No solid mass. Gallbladder: No radiopaque gallstones or wall thickening. Biliary ducts: No biliary dilation. Pancreas: No ductal dilation. Hypoattenuating appearance of the body and tail of the pancreas does not appear significantly changed when compared to the CT from 10/08/2023. Mild narrowing of the adjacent superior mesenteric vein again noted. Prominent gastroepiploic veins. Portal vein is patent. Spleen: Spleen is mildly enlarged measuring up to 14.9 cm in anterior-posterior dimension Adrenal Glands: No adrenal nodules. Kidneys and Ureters: No hydronephrosis. No solid mass. No complex renal cystic lesion which requires follow up. Stomach and Bowel: Colonic diverticulosis without signs of acute diverticulitis. Nondilated fluid-filled loops of small bowel throughout the central abdomen. Stomach is distended. Normal appendix. Peritoneum: No abnormal intraperitoneal fluid. No free air. Ventral Wall: No significant ventral hernia. Abdominal Nodes: No retroperitoneal or mesenteric adenopathy by size criteria. Vessels: Aorta and inferior vena cava are normal in size. PELVIS: Pelvic Organs: Unremarkable. Bladder: No bladder wall thickening, accounting for underdistention. Pelvic Nodes: No enlarged lymph nodes. Miscellaneous: No inguinal hernias are seen. Bones: No aggressive osseous abnormality. IMPRESSION: 1. Stable appearance of the hypoattenuating pancreatic body and tail mass when compared to the CT from 10/08/2023. Mild compression of the superior mesenteric vein does not appear significantly changed. No portal vein thrombosis. 2. Prominent but nondilated fluid-filled loops of small bowel throughout the abdomen are suspicious for a nonspecific enteritis. There is moderate to severe distension of the stomach without an obstructing lesion seen. 3. Moderate splenomegaly. Approved by: Christopher Rodrigues M.D. on 12/09/2023 at 21:59 ECG Data Attestation: I personally reviewed and interpreted this ECG as follows: Interpretation: Sinus tachycardia with rate of 103, no obvious ST segment elevation or depression changes. NC 180, QRS 106, QTC of 466. MDM Narrative Medical decision making narrative: 58-year-old male with history of pancreatic cancer, previous infusions 5-FU, 1st new agent infusion Wednesday, with reported fever today, recent loose stools post chemo. No black or red stools. Afebrile on triage. We will screen for UTI, pneumonia, abdominal acute process, other. Blood cultures requested. Labs including lactate pending. Unremarkable CBC, CMP, lactate normal. Blood cultures pending. Urine dip negative. Chest x-ray negative. Respiratory panel pending. CT abdomen and pelvis imaging requested. Stool studies requested if he produces a specimen. CT shows enteritis like changes small bowel, no other acute changes noted. No stool specimen received thus far. We will touch base with his oncologist to see if he would like empiric antibacterial treatment. We will discuss case with his oncologist, Dr. Espinoza was paged [phone], call back from Dr. Espinoza, results reviewed, no stooling for 4.5 hours while here, enteritis changes, we will hold off on antibiotics at this time. Possible inflammatory response for first-time chemotherapy new agent. Due for next chemotherapy round Wednesday. Patient can call back if he is having fevers over the weekend that are of concern. Patient informed about feedback from Dr. Espinoza, no antibiotics for now. Encouraged hydration, p.o. fluids. Encouraged patient to contact his oncologist closer to Wednesday next round of chemotherapy, if any concerns about proceeding at that time. Return precautions otherwise discussed. Improved, stable, discharged home Discharge Plan Departure Patient Disposition: Home Clinical Impression: Fever, Diarrhea, History of pancreatic cancer, Enteritis Activity Restrictions/Additional Instructions: Recent febrile illness, ongoing new agent chemotherapy for pancreatic cancer in anticipation of possible surgery in [place]. Reported recent stooling. No stool specimen received despite 4.5 hours in the emergency department here. Urinalysis and chest x-ray negative. Respiratory pathogens panel negative. No stool specimen received for lab testing. CT abdomen and pelvis showed pancreatic changes similar to prior comparison study, showed small bowel inflammation enteritis changes. This is most consistent with viral illness. We did touch base with your oncologist Dr. Espinoza, who agreed with holding any exposure to antibiotics for now. Follow up for your next chemotherapy if no fevers over the weekend. Otherwise consider recheck if any change worsening symptoms over the weekend. Take Tylenol as needed for fevers. Encouraged hydration with Gatorade/Powerade. Follow up with your oncology plan. Return earlier to this/nearest emergency department for any change worsening symptoms or any concerns prior Prescriptions: No Action fluticasone propionate 50 mcg/actuation spray,suspension 1 spray intranasal DAILY Qty: 16 3RF Rx Instructions: administer into each nostril daily hydromorphone 2 mg tablet 2 mg PO Q4-6H PRN (Reason: pain) Qty: 180 0RF Hold Instructions: Home Medication placed on hold at Doctor's office Rx Instructions: Take 1 tab by mouth every 4-6 hours as needed for pain due to malignancy. EXEMPT ondansetron 4 mg tablet,disintegrating See Rx Instructions .ROUTE .COMPLEX PRN (Reason: nausea and vomiting) Qty: 180 3RF Rx Instructions: Take with Hydromorphone for the first few days of treatment, and every 6 hours as needed thereafter hydromorphone 4 mg tablet 2 mg PO Q4-6H PRN (Reason: pain) Qty: 90 0RF gabapentin 300 mg capsule 300 mg PO TID PRN (Reason: pain) Qty: 180 3RF Rx Instructions: 300mg TID as needed for breakthrough pain fentanyl 50 mcg/hr patch 72 hour 1 patch transdermal Q72H Qty: 10 0RF Rx Instructions: Replace topically every 72 hours for pain due to malignancy EXEMPT Disabled Parking Permit See Rx Instructions .ROUTE .COMPLEX Qty: 1 0RF Rx Instructions: I find this patient to be medically disabled and qualify for disabled parking as indicated and signed on the accompanying [employer] parking application for individuals. baclofen 5 mg tablet 5 mg PO BEDTIME Qty: 90 3RF Rx Instructions: Take 1 tab at bedtime daily ibuprofen 400 mg tablet 400 mg PO Q8H PRN (Reason: pain) acetaminophen [Tylenol Extra Strength] 500 mg tablet 1,000 mg PO TID PRN (Reason: pain) Rx Instructions: NTE 3000mg/24 hours cetirizine [Allergy Relief (cetirizine)] 10 mg tablet 10 mg PO DAILY Qty: 90 3RF Rx Instructions: Take daily for allergies [facility] See Rx Instructions .ROUTE .COMPLEX Rx Instructions: Per package instructions - Pastilles OR Liquid; dronabinol 10 mg capsule 10 mg PO TID PRN (Reason: pain) Qty: 90 3RF Rx Instructions: Take 1 cap three times per day as needed for pain, equivalent to Nabilone dosing. prednisone 10 mg tablets,dose pack See Rx Instructions PO PER PKG DIR Qty: 48 0RF Rx Instructions: Days 1-4: 40 mg PO before breakfast Days 5-8: 30 mg PO before breakfast Days 9-12: 20 mg PO before breakfast Days 13-17: 10 mg PO before breakfast, on day 13 it is okay to re-start Advil, Ibuprofen, Aleve, Naproxen, or other non-steroidal anti-inflammatory medication) Days 18-19: 5 mg per day (only 0.5 tablet per day) tamsulosin 0.4 mg capsule 0.4 mg PO BID Qty: 180 3RF fenofibrate 160 mg tablet 160 mg PO DAILY Qty: 90 3RF dronabinol 2.5 mg capsule 10 mg PO TID 30 Days Qty: 360 3RF Rx Instructions: Take 4 caps by mouth TID pantoprazole 20 mg tablet,delayed release (DR/EC) 20 mg PO DAILY Qty: 90 3RF lorazepam 0.5 mg tablet 0.5 mg PO TID PRN (Reason: anxiety) Qty: 30 0RF lactulose 20 gram packet 20 g PO BID PRN (Reason: constipation) Qty: 30 0RF Referrals: Catia Fonseca ARNP [Primary Care Provider] - Stand Alone Forms: Patient Portal/API
--- NOTE | 2023-12-09 20:42 | DI.CT.S_ITS ---
PROCEDURE: CT ABDOMEN PELVIS W CON INDICATIONS: fever, hx panc CA, new chemo Wednesday TECHNIQUE: After the administration of intravenous contrast, axial sections acquired from the lung bases to the pubic symphysis. Coronal and sagittal reformats were performed. For radiation dose reduction, the following was used: automated exposure control, adjustment of mA and/or kV according to patient size. COMPARISON: [facility], [place], PET NECK TO MID THIGH, 07/16/2023, 8:20. [facility], CT, CT ABDOMEN PELVIS W CON, 10/08/2023, 14:07. [facility], CT, CT ABDOMEN PELVIS W CON, 09/08/2023, 22:27. FINDINGS: Image quality: Diagnostic. Lower Chest: No significant findings. Mild dependent atelectasis in the lung bases. ABDOMEN: Liver: No solid mass. Gallbladder: No radiopaque gallstones or wall thickening. Biliary ducts: No biliary dilation. Pancreas: No ductal dilation. Hypoattenuating appearance of the body and tail of the pancreas does not appear significantly changed when compared to the CT from 10/08/2023. Mild narrowing of the adjacent superior mesenteric vein again noted. Prominent gastroepiploic veins. Portal vein is patent. Spleen: Spleen is mildly enlarged measuring up to 14.9 cm in anterior-posterior dimension Adrenal Glands: No adrenal nodules. Kidneys and Ureters: No hydronephrosis. No solid mass. No complex renal cystic lesion which requires follow up. Stomach and Bowel: Colonic diverticulosis without signs of acute diverticulitis. Nondilated fluid-filled loops of small bowel throughout the central abdomen. Stomach is distended. Normal appendix. Peritoneum: No abnormal intraperitoneal fluid. No free air. Ventral Wall: No significant ventral hernia. Abdominal Nodes: No retroperitoneal or mesenteric adenopathy by size criteria. Vessels: Aorta and inferior vena cava are normal in size. PELVIS: Pelvic Organs: Unremarkable. Bladder: No bladder wall thickening, accounting for underdistention. Pelvic Nodes: No enlarged lymph nodes. Miscellaneous: No inguinal hernias are seen. Bones: No aggressive osseous abnormality. IMPRESSION: 1. Stable appearance of the hypoattenuating pancreatic body and tail mass when compared to the CT from 10/08/2023. Mild compression of the superior mesenteric vein does not appear significantly changed. No portal vein thrombosis. 2. Prominent but nondilated fluid-filled loops of small bowel throughout the abdomen are suspicious for a nonspecific enteritis. There is moderate to severe distension of the stomach without an obstructing lesion seen. 3. Moderate splenomegaly. Approved by: Christopher Rodrigues M.D. on 12/09/2023 at 21:59
[2023-12-09] MEDS: HYDROMORPHONE 1 MG INJ 0.5 MG IV (21:11)
[2023-12-09 21:49] LABS: Adenovirus Not Detected (Not Detect); B. parapertussis Not Detected (Not Detecte); Bordetella pertussis Not Detected (Not Detect); Chlamydophila pneumoniae Not Detected (Not Detect); Coronavirus 229E Not Detected (Not Detect); Coronavirus HKU1 Not Detected (Not Detect); Coronavirus NL 63 Not Detected (Not Detect); Coronavirus OC43 Not Detected (Not Detect); Human Metapneumovirus Not Detected (Not Detect); Human Rhinovirus/Enterovirus Not Detected (Not Detect); Influenza A Not Detected (Not Detect); Influenza B Not Detected (Not Detect); Mycoplasma pneumoniae Not Detected (Not Detect); Parainfluenza Virus 1 Not Detected (Not Detect); Parainfluenza Virus 2 Not Detected (Not Detect); Parainfluenza Virus 3 Not Detected (Not Detect); Parainfluenza Virus 4 Not Detected (Not Detect); Respiratory Syncytial Virus Not Detected (Not Detect); SARS- CoV-2 Not Detected (Not Detecte)
== END 2023-12-09 23:17 | disposition home or self-care (01) ==
PROVIDERS: Emergency Provider Emergency Medicine; PCP Nurse Practitioner
DX: K52.9 Noninfective gastroenteritis and colitis, unspecified (principal); R50.9 Fever, unspecified; C25.9 Malignant neoplasm of pancreas, unspecified; R00.0 Tachycardia, unspecified; Z11.52 Encounter for screening for COVID-19
CPT/HCPCS: 71045; 74177; 80053; 81003; 83605; 83690; 84145; 85025; 85610; 85730; 87040; 87633; 93005; 96361; 96374; 99284; J1171; Q9967

== ENCOUNTER → 2024-04-14 15:18 | Outpatient (CLI) | payer OTHER, SELFPAY ==
--- NOTE | 2024-04-14 15:20 | DI.RAD.S_ITS ---
PROCEDURE: XR CHEST 2V INDICATIONS: Pneumonia TECHNIQUE: 2 views of the chest were acquired. COMPARISON: [facility], CR, XR CHEST 1V, 12/09/2023, 18:37. FINDINGS: Surgical changes and devices: Right Port-A-Cath Lungs and pleura: Focal confluent bilateral pulmonary opacities. Mediastinum: Mediastinal contours are normal. Heart size is normal. Bones and chest wall: No suspicious bony abnormalities. Soft tissues appear unremarkable. IMPRESSION: Bilateral pulmonary opacities most suspicious for pneumonia. Recommend interval follow-up to document resolution. Dictated by: Rola Mckeon M.D. on 04/14/2024 at 15:48 Approved by: Rola Mckeon M.D. on 04/14/2024 at 15:48
[2024-04-14 16:17] LABS: Add Manual Diff / Slide Review NO; Basophils Absolute Auto 100 /uL (0-100); Basophils Percent Auto 1.1 % (0-2); Eosinophils Absolute Auto 100 /uL (0-450); Eosinophils Percent Auto 1.2 % (2-4); Hemoglobin 11.6 g/dL (13.5-17.5); Lymphocytes Absolute Auto 2500 /uL (1100-4500); Lymphocytes Percent Auto 25.9 % (25-40); Mean Corpuscular HGB Conc 33.2 % (30-36); Mean Corpuscular Hemoglobin 29.7 PG (26-34); Mean Corpuscular Volume 89.5 fL (80-100); Monocytes Absolute Auto 1100 /uL (0-900); Monocytes Percent Auto 11.6 % (3-14); Neutrophils Absolute Auto 5800 /uL (1500-7000); Neutrophils Percent Auto 60.2 % (50-75); Platelet Count 236 X10^3/uL (150-400); Red Blood Cell Count 3.91 X10^6/uL (4.5-5.9); Red Cell Distribution Width 18.8 % (11.6-14.8); White Blood Cell Count 9.6 X10^3/uL (4.5-11.0)
[2024-04-14 16:34] LABS: HEMOLYSIS < 15 (0-50); Iron 75 ug/dL (49-181)
[2024-04-14 16:36] LABS: Alanine Aminotransferase 31 IU/L (<50); Albumin 3.6 g/dL (3.5-5.0); Albumin Globulin Ratio 1.2 (1.0-2.8); Alkaline Phosphatase 60 U/L (38-126); Aspartate Aminotransferase 38 IU/L (17-59); BUN Creatinine Ratio 26.2 (6-22); Bilirubin Total 0.4 mg/dL (0.2-1.3); Blood Urea Nitrogen 28 mg/dL (9-20); Calcium 8.9 mg/dL (8.4-10.2); Carbon Dioxide 30 mmol/L (22-32); Chloride 102 mmol/L (98-107); Estimated Glomerular Filt Rate > 60 mL/min (>60); Globulin 2.9 g/dL (1.7-4.1); Glucose 137 mg/dL (70-100); HEMOLYSIS < 15 (0-50); Potassium 4.6 mmol/L (3.4-5.1); Sodium 139 mmol/L (137-145); Total Protein 6.5 g/dL (6.3-8.2)
[2024-04-14 16:44] LABS: Percent Iron Saturation 29 % (20-50); Total Iron Binding Capacity 256 ug/dL (261-462); Transferrin 241 mg/dL (206-381)
[2024-04-14 17:41] LABS: Folate > 20.0 ng/mL (2.76-20.0); Vitamin B12 > 1000 pg/mL (239-931)
[2024-04-14 18:03] LABS: Ferritin 1320 ng/mL (18-464)
== END ==
PROVIDERS: PCP Family Medicine; Referring Provider Family Medicine; Visit Provider Family Medicine
DX: J18.9 Pneumonia, unspecified organism (principal); D64.9 Anemia, unspecified; Z86.39 Personal history of other endocrine, nutritional and metabolic disease; N40.0 Benign prostatic hyperplasia without lower urinary tract symptoms; C25.9 Malignant neoplasm of pancreas, unspecified
CPT/HCPCS: 71046; 80053; 82607; 82728; 82746; 83540; 83550; 85025

== ENCOUNTER → 2024-05-30 14:49 | Outpatient (CLI) | payer OTHER, SELFPAY ==
--- NOTE | 2024-05-30 14:51 | DI.CT.S_ITS ---
PROCEDURE: CT CHEST W CON INDICATIONS: Pneumonia TECHNIQUE: After the administration of intravenous contrast, 5 mm thick sections acquired from the pulmonary apices to the posterior costophrenic angles. 1 mm axial lung, 5 mm thick coronal and sagittal reformats and 7 mm axial MIP were acquired. For radiation dose reduction, the following was used: automated exposure control, adjustment of mA and/or kV according to patient size. COMPARISON: [facility], CR, XR CHEST 2V, 04/14/2024, 15:17. FINDINGS: Image quality: Diagnostic. Lower Neck: No enlarged lymph nodes. Thyroid: No thyroid nodules which require sonographic follow up, per consensus guidelines. Axillae: No enlarged lymph nodes. Chest Wall: Port-A-Cath positioning normal.. Bones: Unremarkable. Lungs and Pleura: No pneumothorax or pleural effusions. Significantly improved bilateral patchy consolidation present on plain film imaging from 04/14/24. Mild residual patchy alveolar infiltration remains. No pulmonary nodules have developed. Heart: Heart size is normal. No pericardial effusion. Thoracic Vessels: The aorta and pulmonary arteries demonstrate normal size. Mediastinum and Soraya: No enlarged lymph nodes. Esophagus: No wall thickening. Small hiatal hernia. Upper Abdomen: Visualized upper abdomen solid organs and bowel loops appear normal. IMPRESSION: Appreciable improvement in a pattern of previously present moderately severe patchy bilateral alveolar infiltration. Mild residual. No pulmonary nodule or effusion has developed. Port-A-Cath extends to the atrial caval junction from right-sided approach. Dictated by: Ivan Callaway M.D. on 06/01/2024 at 9:52 Approved by: Ivan Callaway M.D. on 06/01/2024 at 10:04
== END ==
PROVIDERS: PCP Family Medicine; Referring Provider Family Medicine; Visit Provider Family Medicine
DX: J18.9 Pneumonia, unspecified organism (principal); Z95.828 Presence of other vascular implants and grafts
CPT/HCPCS: 71260; Q9967

== ENCOUNTER 2024-06-03 12:37 | Emergency (ER) | payer OTHER, SELFPAY ==
[2024-06-03 12:52] VITALS: BP 170/95; PULSE 89; RESP 20; TEMP 36.2; O2SAT 99; BMI 29.4
--- NOTE | 2024-06-03 13:33 | ED_ITS ---
HPI - Abdominal Pain General Chief Complaint: Abdominal Pain Stated Complaint: pain in left side// had pancreatic cancer Time Seen by Provider: 06/03/24 13:03 Source: patient and family Mode of arrival: Ambulatory History of Present Illness HPI narrative: Patient here for reproducible growing mass on the left lateral lower ribs for the past 3 months. Patient does have history of pancreatic cancer followed by oncologist in [facility], had gera knife procedure in [place]. Patient recently treated for pneumonia and had CT of the chest 4 days ago. He has had trauma to this area years ago. Patient in no distress. Related Data Home Medications Medication Instructions Recorded Confirmed Fenbendazole PO 03/16/24 05/31/24 alprazolam 1 mg tablet (Xanax) 1 mg PO BID 03/16/24 05/31/24 ivermectin 6 mg tablet 40 mg PO ONCE 05/31/24 05/31/24 Previous Rx's Medication Instructions Recorded cetirizine 10 mg tablet (Allergy 10 mg PO DAILY #90 tabs 03/03/23 Relief (cetirizine)) fenofibrate 160 mg tablet 160 mg PO DAILY #90 tabs 06/30/23 gabapentin 300 mg capsule 300 mg PO TID PRN pain #180 caps 07/16/23 Disabled Parking Permit See Rx Instructions .Route 09/09/23 .COMPLEX #1 unit sodium,potassium,mag sulfates 17.5 See Rx Instructions PO .COMPLEX 05/18/24 gram-3.13 gram-1.6 gram oral soln #354 mL (Suprep Bowel Prep Kit) Allergies Allergy/AdvReac Type Severity Reaction Status Date / Time haloperidol [From Haldol] AdvReac Severe Agitated Verified 05/31/24 15:28 Review of Systems Review of Systems Narrative: GENERAL: Negative chills, fatigue, malaise, fever, sweats. HEENT: Negative sinus pain, ear pain, sore throat RESPIRATORY: Negative dyspnea, cough CARDIOVASCULAR: Negative chest pain, palpitations GASTROINTESTINAL: Negative vomiting, nausea, positive abdominal pain : Negative dysuria, frequency, hematuria MUSCULOSKELETAL: Positive muscle or bony pain SKIN: Negative rash, skin lesions NEUROLOGIC: Negative weakness, numbness ROS Unobtainable: All systems reviewed & are unremarkable except as noted in HPI and below Patient History Medical History Neoplasm related pain Malignant neoplasm of pancreas GERD (gastroesophageal reflux disease) Bilateral hip pain Greater trochanteric bursitis of both hips Right hip pain Left hip pain Arthritis of left acromioclavicular joint Impingement of right shoulder Bilateral shoulder pain Social History marital status: household members: spouse lives independently: Yes occupational status: employed Smoking Status: Former smoker alcohol intake: former substance use type: marijuana Smoking Status: Former smoker tobacco type: cigarettes alcohol intake frequency: 0-2 drinks per day Exam Narrative Exam Narrative: GENERAL: in no distress, not toxic not dyspneic HEAD: Normocephalic. EYES: Pupils equal round ENT: Mucous membranes moist. NECK: Trachea midline. CARDIOVASCULAR: Regular rate and rhythm RESPIRATORY: Clear to auscultation. Breath sounds equal bilaterally. No wheezes, rales, or rhonchi. GASTROINTESTINAL: Abdomen soft, there is reproducible left lower inferior rib tenderness laterally. Compared to the right it is grossly symmetric in size on palpation. No palpable mass or lipoma no overlying erythema induration or fluctuance. No rash. EXTREMITIES: No gross deformities. BACK: No flank tenderness. NEURO: AOx4. Clear speech SKIN: Warm and dry PSYCH: Not anxious, is cooperative Initial Vital Signs Initial Vital Signs: Vital Signs Temperature 97.2 F L 06/03/24 12:52 Pulse Rate 89 06/03/24 12:52 Respiratory Rate 20 06/03/24 12:52 Blood Pressure 170/95 H 06/03/24 12:52 Pulse Oximetry 99 06/03/24 12:52 Oxygen Delivery Method Room Air 06/03/24 12:52 Course Orders Ordered: Discontinued Medications Heparin Sodium (Porcine) (Heparin 500 Unit/5 Ml Port Flush) 500 unit IV PRN PRN PRN Reason: Flush Last Admin: 06/03/24 15:46 Dose: 500 unit Documented By: SPF Heparin Sodium (Porcine) (Heparin 500 Unit/5 Ml Port Flush) 500 unit IV PRN PRN PRN Reason: port Ondansetron HCl (Ondansetron 4 Mg/2 Ml Inj) 4 mg IV NOW PRN PRN Reason: Nausea And Vomiting Ondansetron HCl (Ondansetron 4 Mg Odt) 4 mg PO NOW PRN PRN Reason: Nausea And Vomiting Vital Signs Vital signs: Vital Signs - 8 hr 06/03/24 12:52 Temperature 97.2 F L Pulse Rate 89 Respiratory Rate 20 Blood Pressure 170/95 H Pulse Oximetry 99 Oxygen Delivery Method Room Air MDM - Abdominal Pain Lab Data 06/03/24 13:11 06/03/24 13:11 Labs: Lab Results 06/03/24 06/03/24 Range/Units 13:11 14:36 WBC 2.5 L (4.5-11.0) X10^3/uL RBC 3.05 L (4.5-5.9) X10^6/uL Hgb 9.0 L (13.5-17.5) g/dL Hct 26.4 L (41-53) % MCV 86.6 (80-100) fL MCH 29.3 (26-34) PG MCHC 33.9 (30-36) % RDW 19.5 H (11.6-14.8) % Plt Count 189 (150-400) X10^3/uL Neut % (Auto) 68.3 (50-75) % Lymph % (Auto) 20.1 L (25-40) % [place] % (Auto) 9.0 (3-14) % Eos % (Auto) 1.2 L (2-4) % Baso % (Auto) 1.4 (0-2) % Neut # (Auto) 1700 (6299-7393) /uL Lymph # (Auto) 500 L (7502-9448) /uL Walton # (Auto) 200 (0-900) /uL Eos # (Auto) 0 (0-450) /uL Baso # (Auto) 0 (0-100) /uL Sodium 138 (137-145) mmol/L Potassium 4.0 (3.4-5.1) mmol/L Chloride 107 (98-107) mmol/L Carbon Dioxide 27 (22-32) mmol/L BUN 23 H (9-20) mg/dL Creatinine 0.80 (0.66-1.25) mg/dL Estimated GFR > 60 (>60) mL/min BUN/Creatinine Ratio 28.8 H (6-22) Glucose 139 H (70-100) mg/dL Calcium 8.3 L (8.4-10.2) mg/dL Total Bilirubin 0.6 (0.2-1.3) mg/dL AST 44 (17-59) IU/L ALT 20 (<50) IU/L Alkaline Phosphatase 40 (38-126) U/L Total Protein 5.5 L (6.3-8.2) g/dL Albumin 3.0 L (3.5-5.0) g/dL Globulin 2.5 (1.7-4.1) g/dL Albumin/Globulin Ratio 1.2 (1.0-2.8) Lipase 45 (23-300) U/L Urine RBC 1-5/hpf (0-5/HPF) Urine WBC 0-1/hpf (0-5/HPF) Ur Squamous Epith Cells 0-1 /hpf (0-5/HPF) Urine Bacteria None seen (None) Hyaline Casts 0-1/lpf (None) Ur Culture Indicated? Cult not indicated Vol Urine Centrifuged 10ml (spun) Point of care testing: Urine Dip Bedside Urine Glucose Negative Bedside Urine Bilirubin - Negative Bedside Urine Ketone - Negative Urine Specific [place] 1.010 Bedside Urine Occult Blood +++ Bedside Urine pH 8.0 Bedside Urine Protein +/- 15 Bedside Urine Urobilinogen - Negative Bedside Urine Nitrite - Negative Bedside Urine Leukocytes - Negative Esterase Imaging Data CT chest abdomen and pelvis: Radiologist's Impression: [address] [address] [address] Scan Report Signed Patient: Asher Hernández MR#: [id number] : 1965 Acct:[id number] Age/Sex: 59 / M Date of Service: 06/03/24 Loc: ED Accession Number: [id number] Procedure: CT chest abd pel w con Ordering Provider: Bijan Beckford MD PROCEDURE: CT CHEST ABD PEL W CON INDICATIONS: Lateral Left abdominal/chest/rib mass TECHNIQUE: After the administration of intravenous contrast, 5 mm thick sections acquired from the lung apices to the symphysis. 5 mm coronal and sagittal reformats were performed, with additional 7 mm MIP reformats through the lungs. For radiation dose reduction, the following was used: automated exposure control, adjustment of mA and/or kV according to patient size. COMPARISON: [facility], CT, CT ABDOMEN PELVIS W CON, 12/09/2023, 20:48. FINDINGS: Image quality: Excellent. CHEST: Lower Neck: No enlarged lymph nodes. Thyroid: No thyroid nodules which require sonographic follow up, per consensus guidelines. Axillae: No enlarged lymph nodes. Chest Wall: Unremarkable. Lungs and Pleura: No pneumothorax or pleural effusions. Emphysematous changes throughout the lungs with ill-defined ground-glass densities and predominantly peripheral and basilar distribution. Small consolidation within the lingula with volume loss and traction bronchiectasis. Heart: Heart size is normal. No pericardial effusion. Thoracic Vessels: The aorta and pulmonary arteries demonstrate normal size. Mediastinum and Soraya: No enlarged lymph nodes. Esophagus: No wall thickening. No hiatal hernia. ABDOMEN: Liver: No solid mass. Gallbladder: No radiopaque gallstones or wall thickening. Biliary ducts: No biliary dilation. Pancreas: Normal appearance of the pancreatic head. The pancreatic body and tail are diminutive and hypoenhancing with questionable dilation of the pancreatic duct, slight decrease in size from comparison. Spleen: Splenomegaly. Adrenal Glands: No adrenal nodules. Kidneys and Ureters: No hydronephrosis. No solid mass. No complex renal cystic lesion which requires follow up. Stomach and Bowel: Normal colonic caliber, without significant wall thickening. A few colonic diverticula without evidence of acute diverticulitis. Peritoneum: No abnormal intraperitoneal fluid. No free air. Ventral Wall: No significant ventral hernia. Abdominal Nodes: No retroperitoneal or mesenteric adenopathy by size criteria. Vessels: Aorta and inferior vena cava are normal in size. PELVIS: Pelvic Organs: Unremarkable. Bladder: No bladder wall thickening, accounting for underdistention. Pelvic Nodes: No enlarged lymph nodes. Miscellaneous: No inguinal hernias are seen. Bones: No aggressive osseous abnormality. Normal appearance of the ribs. No soft tissue mass adjacent to the flank marker IMPRESSION: * No mass within the area indicated by localizing marker. * Slight decreased size of known pancreatic mass. * Unchanged mild splenomegaly. Dictated by: Bijan Cheng M.D. on 06/03/2024 at 13:52 Approved by: Bijan Cheng M.D. on 06/03/2024 at 14:02 [facility] Narrative Medical decision making narrative: Patient here for reproducible growing mass on the left lateral lower ribs for the past 3 months. Patient does have history of pancreatic cancer followed by oncologist in [facility], had gera knife procedure in [place]. Patient recently treated for pneumonia and had CT of the chest 4 days ago. He has had trauma to this area years ago. Patient in no distress. After history and exam, CBC CMP lipase CT chest abdomen pelvis [facility] Medical records reviewed: CT chest done 4 days ago Differential considered: Includes but not limited to rib fracture rib mass lytic lesion Lab Test results independently reviewed as above. Pertinent findings: WBC 2.5 hemoglobin 9.0 hematocrit 26.4 platelets 189 BUN 23 creatinine 0.8 GFR greater than 60 AST 44 ALT 20 Imaging studies independently reviewed: CT chest abdomen pelvis no acute finding Consultations: None indicated at this time Re-evaluations: 3:29 p.m.. Updated patient and results. At this time unknown source for the rib pain and tenderness. However laboratory studies imaging studies are reassuring. They have a PET scan scheduled for next Wednesday with oncologist. Return precautions reviewed. They desire discharge home. Discussion: Appropriate for discharge home exam and laboratory studies imaging studies are reassuring. Return precautions reviewed. They desire discharge home. Diagnosis: Left rib pain Discharge Plan Departure Patient Disposition: Home Clinical Impression: Rib pain on left side Instructions: DI for Musculoskeletal Pain Activity Restrictions/Additional Instructions: Your exam and laboratory studies and imaging studies are reassuring today. Please see your family doctor next week for re-evaluation. Continue home medications. Return if worse if any questions or concerns. It is uncertain what is causing your rib pain at this time. However no new medications are indicated this time. Prescriptions: No Action Fenbendazole 750 mg PO alprazolam [Xanax] 1 mg tablet 1 mg PO BID ivermectin 6 mg tablet 40 mg PO ONCE Rx Instructions: as a single dose gabapentin 300 mg capsule 300 mg PO TID PRN (Reason: pain) Qty: 180 3RF Rx Instructions: 300mg TID as needed for breakthrough pain Disabled Parking Permit See Rx Instructions .ROUTE .COMPLEX Qty: 1 0RF Rx Instructions: I find this patient to be medically disabled and qualify for disabled parking as indicated and signed on the accompanying disabled parking application for individuals. sodium,potassium,mag sulfates [Suprep Bowel Prep Kit] 17.5-3.13-1.6 gram recon soln See Rx Instructions PO .COMPLEX Qty: 354 0RF Rx Instructions: take as directed by Physician cetirizine [Allergy Relief (cetirizine)] 10 mg tablet 10 mg PO DAILY Qty: 90 3RF Rx Instructions: Take daily for allergies fenofibrate 160 mg tablet 160 mg PO DAILY Qty: 90 3RF Referrals: Joana Zapata MD [Primary Care Provider] - Stand Alone Forms: Patient Portal/API/Survey
[2024-06-03 13:40] LABS: Add Manual Diff / Slide Review NO; Basophils Absolute Auto 0 /uL (0-100); Basophils Percent Auto 1.4 % (0-2); Eosinophils Absolute Auto 0 /uL (0-450); Eosinophils Percent Auto 1.2 % (2-4); Hematocrit 26.4 % (41-53); Lymphocytes Absolute Auto 500 /uL (1100-4500); Lymphocytes Percent Auto 20.1 % (25-40); Mean Corpuscular HGB Conc 33.9 % (30-36); Mean Corpuscular Hemoglobin 29.3 PG (26-34); Mean Corpuscular Volume 86.6 fL (80-100); Monocytes Absolute Auto 200 /uL (0-900); Neutrophils Absolute Auto 1700 /uL (1500-7000); Neutrophils Percent Auto 68.3 % (50-75); Platelet Count 189 X10^3/uL (150-400); Red Blood Cell Count 3.05 X10^6/uL (4.5-5.9); Red Cell Distribution Width 19.5 % (11.6-14.8); White Blood Cell Count 2.5 X10^3/uL (4.5-11.0)
[2024-06-03 13:45] LABS: Alanine Aminotransferase 20 IU/L (<50); Albumin Globulin Ratio 1.2 (1.0-2.8); Alkaline Phosphatase 40 U/L (38-126); Aspartate Aminotransferase 44 IU/L (17-59); BUN Creatinine Ratio 28.8 (6-22); Bilirubin Total 0.6 mg/dL (0.2-1.3); Blood Urea Nitrogen 23 mg/dL (9-20); Calcium 8.3 mg/dL (8.4-10.2); Carbon Dioxide 27 mmol/L (22-32); Chloride 107 mmol/L (98-107); Estimated Glomerular Filt Rate > 60 mL/min (>60); Globulin 2.5 g/dL (1.7-4.1); Glucose 139 mg/dL (70-100); HEMOLYSIS < 15 (0-50); Lipase 45 U/L (23-300); Sodium 138 mmol/L (137-145); Total Protein 5.5 g/dL (6.3-8.2)
[2024-06-03 14:57] LABS: Bacteria Urine None Seen; Hyaline Casts Urine 0-1/LPF; RBC Urine 1-5/HPF (0-5/HPF); Squamous Epithelial Cell Urine 0-1 /HPF (0-5/HPF); Urine Volume 10mL (spun); WBC Urine 0-1/HPF (0-5/HPF)
[2024-06-03 14:58] LABS: Culture Indicated Urine Cult Not Indicated
[2024-06-03 15:37] VITALS: BP 146/84; PULSE 69; RESP 16; O2SAT 99
== END 2024-06-03 15:57 | disposition home or self-care (01) ==
PROVIDERS: Emergency Provider Emergency Medicine; PCP Family Medicine
DX: R07.81 Pleurodynia (principal); Z85.07 Personal history of malignant neoplasm of pancreas
CPT/HCPCS: 36415; 71260; 74177; 80053; 81003; 81015; 83690; 85025; 99284; J1642; Q9967

== ENCOUNTER → 2024-06-27 10:24 | Outpatient (CLI) | payer OTHER, SELFPAY ==
[2024-06-27 11:56] LABS: Add Manual Diff / Slide Review NO; Basophils Absolute Auto 0 /uL (0-100); Basophils Percent Auto 1.3 % (0-2); Creatinine Urine Random 109.63 mg/dL; Eosinophils Absolute Auto 100 /uL (0-450); Eosinophils Percent Auto 2.1 % (2-4); Hematocrit 26.4 % (41-53); Hemoglobin 9.1 g/dL (13.5-17.5); Lymphocytes Absolute Auto 800 /uL (1100-4500); Lymphocytes Percent Auto 22.6 % (25-40); Mean Corpuscular HGB Conc 34.6 % (30-36); Mean Corpuscular Hemoglobin 30.5 PG (26-34); Mean Corpuscular Volume 88.3 fL (80-100); Monocytes Absolute Auto 700 /uL (0-900); Monocytes Percent Auto 20.9 % (3-14); Neutrophils Absolute Auto 1800 /uL (1500-7000); Neutrophils Percent Auto 53.1 % (50-75); Platelet Count 137 X10^3/uL (150-400); Red Blood Cell Count 2.99 X10^6/uL (4.5-5.9); Red Cell Distribution Width 18.9 % (11.6-14.8); White Blood Cell Count 3.4 X10^3/uL (4.5-11.0)
[2024-06-27 12:15] LABS: HEMOLYSIS < 15 (0-50); Iron 72 ug/dL (49-181)
[2024-06-27 12:16] LABS: Alanine Aminotransferase 14 IU/L (<50); Albumin 3.5 g/dL (3.5-5.0); Albumin Globulin Ratio 1.5 (1.0-2.8); Alkaline Phosphatase 46 U/L (38-126); Aspartate Aminotransferase 43 IU/L (17-59); BUN Creatinine Ratio 15.4 (6-22); Bilirubin Total 0.6 mg/dL (0.2-1.3); Blood Urea Nitrogen 37 mg/dL (9-20); Calcium 8.5 mg/dL (8.4-10.2); Carbon Dioxide 25 mmol/L (22-32); Chloride 109 mmol/L (98-107); Estimated Glomerular Filt Rate 30 mL/min (>60); Globulin 2.4 g/dL (1.7-4.1); Glucose 110 mg/dL (70-99); HEMOLYSIS < 15 (0-50); Potassium 5.2 mmol/L (3.4-5.1); Sodium 141 mmol/L (137-145); Total Protein 5.9 g/dL (6.3-8.2)
[2024-06-27 12:27] LABS: Percent Iron Saturation 25 % (20-50); Total Iron Binding Capacity 291 ug/dL (261-462); Transferrin 235 mg/dL (206-381)
[2024-06-27 12:46] LABS: TSH w/ Reflex to FT4 0.86 uIU/mL (0.47-4.68)
[2024-06-27 12:50] LABS: Ferritin 804 ng/mL (18-464)
== END ==
PROVIDERS: PCP Family Medicine; Referring Provider Family Medicine; Visit Provider Family Medicine
DX: D64.9 Anemia, unspecified (principal); R60.0 Localized edema; C25.9 Malignant neoplasm of pancreas, unspecified; Z86.39 Personal history of other endocrine, nutritional and metabolic disease
CPT/HCPCS: 36415; 80053; 82043; 82570; 82728; 83540; 83550; 84443; 85025

== ENCOUNTER 2024-06-27 13:57 | Inpatient (IN) | payer OTHER, SELFPAY ==
[2024-06-27] VITALS (11 sets, daily range): BP systolic 155–191; BP diastolic 85–99; PULSE 63–88; RESP 16–18; TEMP 36.1–36.6; O2SAT 96–98; BMI 30.7; BMI 31.4
--- NOTE | 2024-06-27 14:55 | ED_ITS ---
HPI - Recheck/Abnormal Lab/Rx General Chief Complaint: Recheck/Abnormal Lab/Rx Stated Complaint: Possible Kidney Blockage sent from [facility] Time Seen by Provider: 06/27/24 14:45 History of Present Illness HPI narrative: Patient is sent here from primary care office due to acute kidney injury. Patient had blood work done here 1 month ago and had normal kidney function. Today BUN 37 creatinine 2.4 GFR 30. Patient was placed on diuretics by oncology services in [facility] 2 weeks ago. After his visit here. For bilateral leg swelling. Patient does have history of pancreatic cancer. Is followed by Oncology Dr. Wylie, at [facility]. He is going to get referred to [facility] for 2nd opinion. Patient in no distress. Denies any chest pain shortness of breath. at bedside. They do understand may need admission overnight for rehydration. Admit here or transfer pending repeat BMP for improvement. If not improved will need to be transferred. Related Data Home Medications Medication Instructions Recorded Confirmed Fenbendazole 500 mg PO DAILY 03/16/24 06/27/24 alprazolam 1 mg tablet (Xanax) 1 mg PO BID 03/16/24 06/27/24 alprazolam 1 mg tablet 2 mg PO BEDTIME 06/27/24 06/27/24 gabapentin 300 mg capsule 600 mg PO BEDTIME 06/27/24 06/27/24 sjjxui-[id number] 2 - 4 cap PO 3XD 06/27/24 06/27/24 36,000-114,000-180,000 unit capsule,delay rel (Creon) metoclopramide HCl 10 mg tablet 10 mg PO QID 06/27/24 06/27/24 mirtazapine 7.5 mg tablet 7.5 mg PO BEDTIME 06/27/24 06/27/24 Previous Rx's Medication Instructions Recorded fenofibrate 160 mg tablet 160 mg PO DAILY #90 tabs 06/30/[address]ing Permit See Rx Instructions .Route 09/09/23 .COMPLEX #1 unit Allergies Allergy/AdvReac Type Severity Reaction Status Date / Time haloperidol [From Haldol] AdvReac Severe Agitated Verified 06/27/24 09:35 egg AdvReac Intermediate Gastrointestinal Verified 06/27/24 18:06 Upset Review of Systems Review of Systems Narrative: GENERAL: Negative chills, fatigue, malaise, fever, sweats. HEENT: Negative sinus pain, ear pain, sore throat RESPIRATORY: Negative dyspnea, cough CARDIOVASCULAR: Negative chest pain, palpitations, positive peripheral edema GASTROINTESTINAL: Negative vomiting, nausea, abdominal pain : Negative dysuria, frequency, hematuria MUSCULOSKELETAL: Negative muscle or bony pain SKIN: Negative rash, skin lesions NEUROLOGIC: Negative weakness, numbness ROS Unobtainable: All systems reviewed & are unremarkable except as noted in HPI and below Patient History Medical History Neoplasm related pain Malignant neoplasm of pancreas GERD (gastroesophageal reflux disease) Bilateral hip pain Greater trochanteric bursitis of both hips Right hip pain Left hip pain Arthritis of left acromioclavicular joint Impingement of right shoulder Bilateral shoulder pain Social History marital status: household members: spouse lives independently: Yes occupational status: employed Smoking Status: Never smoker alcohol intake: never substance use type: marijuana tobacco type: cigarettes alcohol intake frequency: 0-2 drinks per day Exam Narrative Exam Narrative: GENERAL: in no distress, not toxic not dyspneic HEAD: Normocephalic. EYES: Pupils equal round ENT: Mucous membranes moist. NECK: Trachea midline. CARDIOVASCULAR: Regular rate and rhythm RESPIRATORY: Clear to auscultation. Breath sounds equal bilaterally. No wheezes, rales, or rhonchi. GASTROINTESTINAL: Abdomen soft, non-tender EXTREMITIES: No gross deformities. 3+ bilateral ankle edema, patient is able to ambulate in hallway. BACK: No flank tenderness. NEURO: AOx4. Clear speech SKIN: Warm and dry PSYCH: Not anxious, is cooperative Initial Vital Signs Initial Vital Signs: Vital Signs Temperature 97.8 F 06/27/24 14:03 Pulse Rate 88 06/27/24 14:03 Respiratory Rate 16 06/27/24 14:03 Blood Pressure 191/96 H 06/27/24 14:03 Pulse Oximetry 96 06/27/24 14:03 Oxygen Delivery Method Room Air 06/27/24 14:03 Course Orders Ordered: Acetaminophen (Acetaminophen 325 Mg Tablet) 650 mg PO Q6H PRN PRN Reason: Fever/Mild Pain (1-3) Alprazolam (Alprazolam 0.25 Mg Tablet) 1 mg PO 0900,1700 PRN PRN Reason: anxiety Alprazolam (Alprazolam 0.25 Mg Tablet) 2 mg PO BEDTIME RONEN Last Admin: 06/28/24 21:49 Dose: 2 mg Documented By: Admin: 06/27/24 20:38 Dose: 2 mg Documented By: Gabapentin (Gabapentin 300 Mg Capsule) 600 mg PO BEDTIME RONEN Last Admin: 06/28/24 21:49 Dose: 600 mg Documented By: Admin: 06/27/24 20:38 Dose: 600 mg Documented By: Heparin Sodium (Porcine) (Heparin 5,000 Unit/Ml Vial) 5,000 unit SUBCUT BID [facility] Last Admin: 06/28/24 21:49 Dose: 5,000 unit Documented By: Admin: 06/28/24 09:49 Dose: 5,000 unit Documented By: Admin: 06/27/24 20:39 Dose: 5,000 unit Documented By: Heparin Sodium (Porcine) (Heparin 500 Unit/5 Ml Port Flush) 500 unit IV PRN PRN PRN Reason: Flush Last Admin: 06/28/24 09:54 Dose: 500 unit Documented By: NEDA Hydralazine HCl (Hydralazine 20 Mg/Ml Vial) 10 mg IV Q6HR PRN PRN Reason: SBP > 180 or DBP > 100 Last Admin: 06/28/24 21:49 Dose: 10 mg Documented By: RADHA Sodium Chloride (Normal Saline 0.9%) 1,000 mls @ 125 mls/hr IV CONT [facility] Last Infusion: 06/29/24 02:30 Dose: Infused Documented By: Admin: 06/28/24 18:24 Dose: 125 mls/hr Documented By: Infusion: 06/28/24 18:24 Dose: Infused Documented By: Admin: 06/28/24 17:29 Dose: 125 mls/hr Documented By: Infusion: 06/28/24 17:29 Dose: Infused Documented By: Admin: 06/28/24 09:55 Dose: 125 mls/hr Documented By: Infusion: 06/28/24 09:18 Dose: Infused Documented By: Admin: 06/28/24 01:18 Dose: 125 mls/hr Documented By: Infusion: 06/28/24 01:18 Dose: Infused Documented By: Admin: 06/27/24 17:47 Dose: 125 mls/hr Documented By: NEDA Labetalol HCl (Labetalol 20 Mg/4 Ml Syringe) 10 mg IV Q4HR PRN PRN Reason: BP > 180 or DBP > 100 Last Admin: 06/28/24 23:46 Dose: 10 mg Documented By: TO Metoclopramide HCl (Metoclopramide Hcl 5 Mg Tablet) 10 mg PO QID [facility] Last Admin: 06/28/24 21:49 Dose: 10 mg Documented By: Admin: 06/28/24 18:24 Dose: 10 mg Documented By: Admin: 06/28/24 13:43 Dose: 10 mg Documented By: Admin: 06/28/24 09:49 Dose: 10 mg Documented By: Admin: 06/27/24 21:49 Dose: 10 mg Documented By: Admin: 06/27/24 18:23 Dose: 10 mg Documented By: NEDA Mirtazapine (Mirtazapine 15 Mg Tablet) 7.5 mg PO BEDTIME [facility] Last Admin: 06/28/24 21:48 Dose: 7.5 mg Documented By: Admin: 06/27/24 20:38 Dose: 7.5 mg Documented By: Naloxone HCl (Naloxone 0.4 Mg/Ml Vial) 0.2 mg IV Q2MIN PRN PRN Reason: Opiate Reversal Nf - Lipase-Protease -Amylase [Creon] 36, 000-114,000- 180,000 Unit Cap 0 cap PO TIDWM [facility] Last Admin: 06/28/24 18:25 Dose: 4 cap Documented By: Admin: 06/28/24 13:43 Dose: 2 cap Documented By: Discontinued Medications Hydralazine HCl (Hydralazine 20 Mg/Ml Vial) 10 mg IV NOW ONE Stop: 06/29/24 00:58 Last Admin: 06/29/24 01:26 Dose: 10 mg Documented By: TO Sodium Chloride (Normal Saline 0.9%) 1,000 mls @ 1,000 mls/hr IV BOLUS ONE Stop: 06/27/24 15:54 Last Infusion: 06/27/24 16:10 Dose: Infused Documented By: Admin: 06/27/24 15:08 Dose: 1,000 mls/hr Documented By: IMTIAZ Metoclopramide HCl (Metoclopramide Hcl 5 Mg Tablet) 10 mg PO QID [facility] Nf - Lipase-Protease -Amylase [Creon] 36, 000-114,000- 180,000 Unit Cap 1 cap PO TIDWM [facility] Last Admin: 06/28/24 13:49 Dose: Not Given Documented By: Admin: 06/28/24 09:48 Dose: Not Given Documented By: Admin: 06/27/24 18:24 Dose: Not Given Documented By: NEDA Vital Signs Vital signs: Vital Signs - 8 hr 06/27/24 14:03 Temperature 97.8 F Pulse Rate 88 Respiratory Rate 16 Blood Pressure 191/96 H Pulse Oximetry 96 Oxygen Delivery Method Room Air [facility] - Recheck/Abnormal Lab/Rx Lab Data 06/29/24 05:30 06/29/24 05:30 Labs: Lab Results 06/27/24 Range/Units 14:54 Sodium 139 (137-145) mmol/L Potassium 5.1 (3.4-5.1) mmol/L Chloride 109 H (98-107) mmol/L Carbon Dioxide 25 (22-32) mmol/L BUN 39 H (9-20) mg/dL Creatinine 2.29 H (0.66-1.25) mg/dL Estimated GFR 32 L (>60) mL/min BUN/Creatinine Ratio 17.0 (6-22) Glucose 139 H (70-99) mg/dL Calcium 8.1 L (8.4-10.2) mg/dL [facility] Narrative Medical decision making narrative: Patient is sent here from primary care office due to acute kidney injury. Patient had blood work done here 1 month ago and had normal kidney function. Today BUN 37 creatinine 2.4 GFR 30. Patient was placed on diuretics by oncology services in [facility] 2 weeks ago. After his visit here. For bilateral leg swelling. Patient does have history of pancreatic cancer. Is followed by Oncology Dr. Wylie, at [facility]. He is going to get referred to [facility] for 2nd opinion. Patient in no distress. Denies any chest pain shortness of breath. at bedside. They do understand may need admission overnight for rehydration. Admit here or transfer pending repeat BMP for improvement. If not improved will need to be transferred. After history and exam, [facility] Medical records reviewed: Office visit and CBC and CMP from today Differential considered: Includes but not limited to acute renal injury Lab Test results independently reviewed as above. Pertinent findings: Creatinine improved from 2.4-2.29, GFR did improve from 30-32. Consultations: 4:34 p.m.. Spoke with hospitalist, Dr. Montez, will admit patient Re-evaluations: 4:40 p.m.. Reviewed with patient and results and they do agree for admission. Will need IV hydration to protect the kidneys Discussion: Appropriate for admission. Patient did respond with IV fluids with improved renal functions. Appropriate for admission for continued hydration Diagnosis: Acute renal injury Discharge Plan Departure Patient Disposition: Admitted as Observation Clinical Impression: Acute kidney injury Admit Date/Time: 06/27/24 16:34 Admit Provider: Iggy Montez
[2024-06-27] MEDS: SODIUM CHLORIDE 0.9% 1,000 ML 1000 ML IV (15:08)
[2024-06-27 16:24] LABS: Blood Urea Nitrogen 39 mg/dL (9-20); Calcium 8.1 mg/dL (8.4-10.2); Carbon Dioxide 25 mmol/L (22-32); Chloride 109 mmol/L (98-107); Estimated Glomerular Filt Rate 32 mL/min (>60); Glucose 139 mg/dL (70-99); HEMOLYSIS < 15 (0-50); Potassium 5.1 mmol/L (3.4-5.1); Sodium 139 mmol/L (137-145)
--- NOTE | 2024-06-27 17:01 | PM.HP.1 ---
History of Present Illness History of Present Illness Date Patient Seen: 06/27/24 Time Patient Seen: 17:43 Chief complaint: Possible Kidney Blockage sent from [facility] Narrative: The patient was a 59-year-old male with stage IV pancreas cancer. He was diagnosed about a year ago and completed multiple rounds of 5 FU but did not tolerate chemotherapy. Ultimately he began to see Dr. Espinoza in [place] and pursue integrative treatments with Metronomic therapy. The patient developed leg edema about 2 months ago, this coincided with starting ivermectin as a another treatment. The patient has left greater than right leg swelling. He denies any orthopnea, or dyspnea. A recent PET scan was read as negative, no evidence of metastatic disease. He previously had right lung disease noted. The patient returned from [facility] and saw his PCP. His creatinine was elevated with mild hyperkalemia, this is new. He was no history of renal disease. He has been on Lasix once a day for 5 days for 2 cycles over the last several weeks. He will have temporary improvement of his edema. He denies any hemoptysis. He lost about 50 lb over the last year and has gained back about 35 lb. He was a good appetite. Denies any diarrhea or blood per rectum. [facility] Medical History Neoplasm related pain Malignant neoplasm of pancreas GERD (gastroesophageal reflux disease) Bilateral hip pain Greater trochanteric bursitis of both hips Right hip pain Left hip pain Arthritis of left acromioclavicular joint Impingement of right shoulder Bilateral shoulder pain Social History marital status: household members: spouse lives independently: Yes occupational status: employed alcohol intake: former substance use type: marijuana Meds Home Medications and Allergies Home Medications Medication Instructions Recorded Confirmed Type fenofibrate 160 mg tablet 160 mg PO DAILY #90 tabs 06/30/23 06/27/24 Rx Disabled Parking Permit See Rx Instructions .Route 09/09/23 06/27/24 Rx .COMPLEX #1 unit Fenbendazole 500 mg PO DAILY 03/16/24 06/27/24 History alprazolam 1 mg tablet (Xanax) 1 mg PO BID 03/16/24 06/27/24 History alprazolam 1 mg tablet 2 mg PO BEDTIME 06/27/24 06/27/24 History gabapentin 300 mg capsule 600 mg PO BEDTIME 06/27/24 06/27/24 History elizyr-wfmgwmej-oczdnas 2 - 4 cap PO 3XD 06/27/24 06/27/24 History 36,000-114,000-180,000 unit capsule,delay rel (Creon) metoclopramide HCl 10 mg tablet 10 mg PO QID 06/27/24 06/27/24 History mirtazapine 7.5 mg tablet 7.5 mg PO BEDTIME 06/27/24 06/27/24 History Allergies Allergy/AdvReac Type Severity Reaction Status Date / Time haloperidol [From Haldol] AdvReac Severe Agitated Verified 06/27/24 09:35 Review of Systems Review of Systems Narrative: All else reviewed and otherwise unremarkable except as noted in the history and physical. Exam Vital Signs (past 8 hours): - 06/27/24 14:03 06/27/24 14:46 06/27/24 15:00 Temperature 97.8 F Pulse Rate 88 83 Respiratory Rate 16 Blood Pressure 191/96 H 155/91 H Pulse Oximetry 96 98 Oxygen Delivery Method Room Air 06/27/24 15:00 06/27/24 15:30 06/27/24 15:31 Temperature Pulse Rate 85 81 85 Respiratory Rate Blood Pressure Pulse Oximetry 97 98 98 Oxygen Delivery Method 06/27/24 15:31 06/27/24 16:00 06/27/24 16:00 Temperature Pulse Rate 75 Respiratory Rate Blood Pressure 186/85 H 168/89 H Pulse Oximetry 98 Oxygen Delivery Method 06/27/24 16:37 06/27/24 16:42 06/27/24 16:42 Temperature Pulse Rate 63 81 Respiratory Rate Blood Pressure 163/94 H Pulse Oximetry 97 Oxygen Delivery Method Oxygen Delivery Method Room Air Narrative Exam Narrative: NAD, alert and oriented, fluent speech, calm. Pale. Normocephalic skull, EOMI, anicteric sclera, symmetric pupils. Oropharynx unremarkable, no droop. Neck supple, midline trachea, no adenopathy. Lungs clear, normal rate and effort. Heart regular, no murmur gallop or rub. Abdomen is soft, non distended and non tender. Extremities are with edema. Skin is free of rash or lesions. Joints are not swollen or deformed. Judgment appears to be normal. Objective Imaging CT scan - abdomen: Radiologist's impression: * No mass within the area indicated by localizing marker. * Slight decreased size of known pancreatic mass. * Unchanged mild splenomegaly. Labs 06/27/24 14:54 Labs: Laboratory Results - last 24 hr 06/27/24 14:54 Sodium 139 Potassium 5.1 Chloride 109 H Carbon Dioxide 25 BUN 39 H Creatinine 2.29 H Estimated GFR 32 L BUN/Creatinine Ratio 17.0 Glucose 139 H Calcium 8.1 L Assessment & Plan Assessment & Plan narrative: 1. AZEEM, present on admission and active. 2. Stage 4 pancreatic cancer, present on admission and active. 3. Hyperkalemia, present on admission and active. PLAN: -IVF -monitor renal function -monitor potassium -ECHo to assess LVEF Anticipate 1 MN of care, supports observation status. Time-Based Coding :: 35 min spent with patient and on the chart (including review of chart, obtaining history, exam, reviewing outside data, placing orders, documenting exam and treatment plan, and counseling patient) on 06/27. Quality MIPS - Admit I confirm the patient?s Advance Care Plan is present, Code status is documented, Surrogate decision maker is in patient?s record [If Yes, STOP here]: Yes The patient?s Advance Care plan is not present because I confirmed today that the patient does not wish or was not able to name a surrogate decision maker or provide an Advance Care Plan.: Yes MIPS - Meds 'Current medications' to include all prescriptions, [id number] products, herbals, cannabis/cannabidiol products, and vitamin/mineral/dietary (nutritional) supplements. I have utilized all available resources to obtain, update, or review the patient?s current medications. [If Yes, STOP here]: Yes
--- NOTE | 2024-06-27 17:41 | DI.ECHO.S_ITS ---
[facility] : : [address] : : [place] : : [id number] : : Phone: [phone] Echocardiogram Report + + :Name: RIANNA MARLEY Study Date: 06/28/2024 Height: 73 in : :[facility] ReadingLocation: Weight: 233 lb: : Gender: Male BSA: 2.3 m2 : :: 1965 Age: 59 yrs : :Reason For Study: EDEMA : :Ordering Physician: SHANI, : :YAMILEX Garcia Performed By: Sofy Castro : :Referring: YAMILEX MCLEOD : + + Interpretation Summary 1. The left ventricular contractility is borderline. Estimated ejection fraction is approximately 50 to 55% with no segmental wall motion abnormalities. Mild concentric LVH. Indeterminate diastolic function. 2. The right ventricle contractility is normal. 3. Mild left atrial enlargement. All of your cardiac chambers are of normal size. 4. Tricuspid regurgitation noted on spectral display only. Estimated pulmonary systolic artery pressure is 44 mmHg. 5. No obvious intracardiac shunts. 6. No obvious intracardiac masses nor thrombi. 7. No hemodynamically significant pericardial effusion. 8. Elevated right-sided filling pressures. Conclusion: Low normal left ventricular systolic function with mildly elevated pulmonary systolic artery pressures. Procedure: A two-dimensional transthoracic echocardiogram with color flow and Doppler was performed. The study quality was technically difficult. There is no prior echocardiogram noted for this patient. The patient was in sinus rhythm with heart rates between 76-86 bpm during the exam. Left Ventricle: The left ventricle is normal in size. There is mild concentric left ventricular hypertrophy. The ejection fraction is estimated to be 50-55%. Right Ventricle: The right ventricle is at the upper limits of normal in size. The right ventricular systolic function is normal. Atria: The left atrium is mildly dilated. Right atrial size is normal. There is no Doppler evidence for an interatrial shunt. Mitral Valve: The mitral valve leaflets appear mildly thickened, but open well. There is trace mitral regurgitation. Aortic Valve: The aortic valve is trileaflet. The aortic valve opens well. The aortic valve is mildly calcified. There is no aortic valve stenosis. No aortic regurgitation is present. Tricuspid Valve: The tricuspid valve is not well visualized, but is grossly normal. There is trace tricuspid regurgitation. The right ventricular systolic pressure is estimated to be at least 29 mmHg based on an estimated right atrial pressure of 3 mm Hg. Pulmonic Valve: The pulmonic valve leaflets are thin and pliable; valve motion is normal. There is trace pulmonic regurgitation. Great Vessels: The aortic root is normal size. The dimensions of the ascending aorta are normal. The IVC is dilated (diameter is greater than 2.1 cm) and it collapses less than 50% with a sniff. This suggests a high right atrial pressure of 15 mm Hg. Pericardium/ Pleura There is no pericardial effusion. There is a left pleural effusion noted. MMode/2D Measurements & Calculations LVIDd: 5.5 cm LVOT diam: 2.3 cm LVIDs: 3.7 cm Ao root diam: 3.4 cm FS: 33.5 % asc Aorta Diam: 3.2 cm IVSd: 1.2 cm Ao Arch Diam (Prox Trans): 3.4 cm LVPWd: 1.1 cm LV greco. diameter/BSA (cm/m^2): 2.4 LV sys. diameter/BSA (cm/m^2): 1.6 LA A2 area: 23.5 cm2 RA long axis: 4.3 cm LA A4 area: 24.3 cm2 RA area: 17.4 cm2 LA length (vol): 5.8 cm RA vol: 60.3 ml LA vol: 83.5 ml RA : 26.3 ml/m2 LA vol index: 36.4 ml/m2 IVC diam: 2.3 cm RVD1 (basal): 4.0 cm Doppler Measurements & Calculations Ao V2 max: 124.9 cm/sec LVOT Max Diego: 98.3 cm/sec Ao V2 mean: 88.9 cm/sec LV V1 max P.9 mmHg Ao max P.2 mmHg LV V1 VTI: 21.6 cm Ao mean P.5 mmHg SHAHAB(I,D): 3.4 cm2 Ao V2 VTI: 25.6 cm SHAHAB(V,D): 3.1 cm2 sev ratio: 0.85 SHAHAB indexed to BSA (cm^2/m^2): 1.5 MV E max diego: 85.0 cm/sec TR max diego: 253.0 cm/sec MV A max diego: 87.6 cm/sec TR max P.6 mmHg MV E/A: 0.97 PA V2 max: 105.6 cm/sec Med Peak E' Diego: 6.7 cm/sec PA V2 mean: 67.5 cm/sec E/E' med: 12.8 PA mean P.1 mmHg Lat Peak E' Diego: 8.7 cm/sec E/E' lat: 9.8 E/e' average: 11.3 MV dec time: 0.17 sec SV(LVOT): 86.1 ml Reading Physician:COLEMAN
[2024-06-27] MEDS: SODIUM CHLORIDE 0.9% 1,000 ML 125 ML IV (17:47)
--- NOTE | 2024-06-27 18:11 | PC.NURSE ---
Admit Note Patient admitted to room 225 at 1720 via wheelchair. Pt is alert and oriented x4. Steady on feet, independent in room. Admission assessment completed with Cecilia at bedside. Belongings in room including shoes, clothing, and glasses. Oriented to room and to bed/tv/call light controls. Pt's will bring in pt's Creon tomorrow. All questions answered.
[2024-06-27] MEDS: METOCLOPRAMIDE HCL 5 MG TABLET 10 MG PO ×2 (18:23→21:49)
[2024-06-27] MEDS: MIRTAZAPINE 15 MG TABLET 7.5 MG PO (20:38)
[2024-06-27] MEDS: GABAPENTIN 300 MG CAPSULE 600 MG PO (20:38)
[2024-06-27] MEDS: ALPRAZolam 0.25 MG TABLET 2 MG PO (20:38)
[2024-06-27] MEDS: HEPARIN 5,000 UNIT/ML VIAL 5000 UNIT SUBCUT (20:39)
[2024-06-28] MEDS: SODIUM CHLORIDE 0.9% 1,000 ML 125 ML IV ×4 (01:18→18:24)
[2024-06-28 08:19] LABS: Hematocrit 23.6 % (41-53); Mean Corpuscular HGB Conc 33.9 % (30-36); Mean Corpuscular Hemoglobin 30.1 PG (26-34); Mean Corpuscular Volume 88.8 fL (80-100); Platelet Count 99 X10^3/uL (150-400); Red Blood Cell Count 2.65 X10^6/uL (4.5-5.9); Red Cell Distribution Width 18.5 % (11.6-14.8)
[2024-06-28 08:51] LABS: BUN Creatinine Ratio 16.7 (6-22); Blood Urea Nitrogen 34 mg/dL (9-20); Calcium 7.9 mg/dL (8.4-10.2); Carbon Dioxide 24 mmol/L (22-32); Chloride 113 mmol/L (98-107); Estimated Glomerular Filt Rate 37 mL/min (>60); Glucose 87 mg/dL (70-99); HEMOLYSIS < 15 (0-50); Potassium 4.8 mmol/L (3.4-5.1); Sodium 140 mmol/L (137-145)
[2024-06-28 09:00] VITALS: BP 164/98; PULSE 64; RESP 16; TEMP 35.9; O2SAT 97
--- NOTE | 2024-06-28 09:02 | PM.PN.1 ---
Subjective Subjective Interval history: Summary: The patient was a 59-year-old male with stage IV pancreas cancer. He was diagnosed about a year ago and completed multiple rounds of 5 FU but did not tolerate chemotherapy. Ultimately he began to see Dr. Espinoza in [place] and pursue integrative treatments with Metro06/28: nomic therapy. The patient developed leg edema about 2 months ago, this coincided with starting ivermectin as a another treatment. The patient has left greater than right leg swelling. He denies any orthopnea, or dyspnea. A recent PET scan was read as negative, no evidence of metastatic disease. He previously had right lung disease noted. The patient returned from [facility] and saw his PCP. His creatinine was elevated with mild hyperkalemia, this is new. He was no history of renal disease. He has been on Lasix once a day for 5 days for 2 cycles over the last several weeks. He will have temporary improvement of his edema. He denies any hemoptysis. He lost about 50 lb over the last year and has gained back about 35 lb. He was a good appetite. Denies any diarrhea or blood per rectum. 06/27: Cr 2.29 06/28: Cr 2.03 S: Exam Vital Signs (past 8 hours): - 06/28/24 08:15 Oxygen Delivery Method Room Air Oxygen Delivery Method Room Air Oxygen Flow Rate 0 Narrative Exam Narrative: NAD, alert and oriented. Fluent speech. Lungs are clear, normal rate and effort. Heart is regular, no murmur gallop or rub. Abdomen is soft, non distended. Extremities with 4+ edema. Objective Labs 06/28/24 08:12 06/28/24 08:12 Labs: Laboratory Results - last 24 hr 06/27/24 06/28/24 14:54 08:12 WBC 3.0 L RBC 2.65 L Hgb 8.0 L Hct 23.6 L MCV 88.8 MCH 30.1 MCHC 33.9 RDW 18.5 H Plt Count 99 L Sodium 139 140 Potassium 5.1 4.8 Chloride 109 H 113 H Carbon Dioxide 25 24 BUN 39 H 34 H Creatinine 2.29 H 2.03 H Estimated GFR 32 L 37 L BUN/Creatinine Ratio 17.0 16.7 Glucose 139 H 87 Calcium 8.1 L 7.9 L [facility] Medical History Neoplasm related pain Malignant neoplasm of pancreas GERD (gastroesophageal reflux disease) Bilateral hip pain Greater trochanteric bursitis of both hips Right hip pain Left hip pain Arthritis of left acromioclavicular joint Impingement of right shoulder Bilateral shoulder pain Social History marital status: household members: spouse lives independently: Yes occupational status: employed Smoking Status: Never smoker alcohol intake: never substance use type: marijuana Assessment & Plan Assessment & Plan narrative: 1. AZEEM, present on admission and improving. 2. Stage 4 pancreatic cancer, present on admission and active. 3. Hyperkalemia, present on admission and improved. 4. Left greater than right leg edema, present on admission and active. PLAN: -IVF -monitor renal function -monitor potassium -ECHo to assess LVEF -duplex ultrasound of legs to rule out DVT. He requires another night of care for IV fluids and monitor renal function and see if this improves. We will also assess cardiac function and rule out DVT. Time-Based Coding :: [TOTAL MINUTES] spent with patient and on the chart (including review of chart, obtaining history, exam, reviewing outside data, placing orders, documenting exam and treatment plan, and counseling patient) on [DATE]. Quality VTE Deep Vein Thrombosis/Pulmonary Embolism Present on Admission: No
[2024-06-28] MEDS: METOCLOPRAMIDE HCL 5 MG TABLET 10 MG PO ×4 (09:49→21:49)
[2024-06-28] MEDS: HEPARIN 5,000 UNIT/ML VIAL 5000 UNIT SUBCUT ×2 (09:49→21:49)
--- NOTE | 2024-06-28 11:51 | CM.DANOTE ---
Initial DCP Assessment Note Pt is a 59 yo male, resident of [place], [facility] stage IV pancreas cancer, admitted OBS for management of AZEEM, Hyperkalemia w/leg edema. PCP: Dr. Colon Payer: [email or web address] Reviewed chart, pt discussed in multidisciplinary rounds this morning. DREW 06/29. Patient lives independently with spouse. No barriers identified at this time to patient's safe discharge home w/spouse with ongoing outpatient follow up. CM team will plan to follow clinical course closely in case any DC needs or concerns arise. RYAN Aguila Discharge Planning/Care Management CM Discharge Assessment Start: 06/27/24 16:37 Freq: Status: Active Protocol: Document 06/28/24 11:31 RICCI (Rec: 06/28/24 11:51 RICCI [id number]) Discharge Planning Assessment Assigned Oxidation Engineer RYAN He DPOA/Assigned Designee Name dioni Gresham [phone] Advance Directives? No History Provided By Patient,Medical Record Has Patient been admitted in last 30 No days? Prior Living Arrangements House Household Members spouse Type of transportation used prior to Drives own vehicle admit Independent with ADL's Yes Is patient alert and oriented? Yes Barriers to Discharge No Discharge Plan Home Transportation Arrangement Spouse Referrals Initiated None needed
[2024-06-28 13:31] LABS: Appearance Urine UA CLEAR; Bilirubin Urine UA NEGATIVE (NEGATIVE); Color Urine UA YELLOW; Glucose Urine UA NEGATIVE (Negative); Ketones Urine UA NEGATIVE (NEGATIVE); Leukocyte Esterase Urine UA NEGATIVE (NEGATIVE); Nitrite Urine UA NEGATIVE (Negative); Occult Blood Urine UA 3+ (Negative); Protein Urine UA 2+ (Negative); Specific Gravity Urine UA 1.015 (1.000-1.035); Urobilinogen Urine UA 0.2 E.U./dL (0.2)
[2024-06-28 13:42] LABS: RBC Urine 10-30/HPF (0-5/HPF); Urine Volume 10mL (spun); WBC Urine 0-1/HPF (0-5/HPF)
[2024-06-28 13:43] LABS: Bacteria Urine None Seen; Culture Indicated Urine Cult Not Indicated; Squamous Epithelial Cell Urine None Seen (0-5/HPF)
[2024-06-28] MEDS: LIPASE PROTEASE AMYLASE PO ×2 (13:43→18:25)
--- NOTE | 2024-06-28 14:58 | DI.US.S_ITS ---
PROCEDURE: US PERIPH VENOUS LOW EXTREM BI INDICATIONS: SWELLING TECHNIQUE: Real-time imaging, as well as color and pulse Doppler interrogation, were performed of the deep veins of both legs from the inguinal ligament to the popliteal fossa, with documentation of the visualized calf veins. COMPARISON: None. FINDINGS: Right: The common femoral, femoral, popliteal, and the visualized calf veins are normally compressible, and free of intraluminal thrombus. Color and pulse Doppler demonstrate normal phasic intravascular flow. There is normal augmentation response to distal compression maneuver. Left: The common femoral, femoral, popliteal, and the visualized calf veins are normally compressible, and free of intraluminal thrombus. Color and pulse Doppler demonstrate normal phasic intravascular flow. There is normal augmentation response to distal compression maneuver. IMPRESSION: No findings of deep venous thrombosis in either lower extremity. Dictated by: Rola Mckeon M.D. on 06/28/2024 at 16:45 Approved by: Rola Mckeon M.D. on 06/28/2024 at 16:46
[2024-06-28 16:13] LABS: Reticulocyte Count, Percent 2.2 % (0.9-2.6)
[2024-06-28 16:23] LABS: HEMOLYSIS < 15 (0-50); Iron 67 ug/dL (49-181)
[2024-06-28 16:35] LABS: Percent Iron Saturation 24 % (20-50); Total Iron Binding Capacity 283 ug/dL (261-462); Transferrin 220 mg/dL (206-381)
[2024-06-28 16:54] LABS: Ferritin 747 ng/mL (18-464)
[2024-06-28 17:34] LABS: Folate 12.4 ng/mL (2.76-20.0); Vitamin B12 726 pg/mL (239-931)
[2024-06-28 19:00] VITALS: BP 183/103; PULSE 93; RESP 24; TEMP 37; O2SAT 95
[2024-06-28] MEDS: MIRTAZAPINE 15 MG TABLET 7.5 MG PO (21:48)
[2024-06-28 21:49] VITALS: BP 205/102
[2024-06-28] MEDS: hydrALAZINE 20 MG/ML VIAL 10 MG IV (21:49)
[2024-06-28] MEDS: ALPRAZolam 0.25 MG TABLET 2 MG PO (21:49)
[2024-06-28] MEDS: GABAPENTIN 300 MG CAPSULE 600 MG PO (21:49)
[2024-06-28 22:35] VITALS: BP 213/112; PULSE 91
[2024-06-28 23:46] VITALS: BP 185/100; PULSE 99
[2024-06-28] MEDS: LABETALOL 20 MG/4 ML SYRINGE 10 MG IV (23:46)
[2024-06-28 23:52] VITALS: BP 185/100; PULSE 99; RESP 16; TEMP 36.6; O2SAT 94
[2024-06-29] VITALS (16 sets, daily range): BP systolic 160–231; BP diastolic 92–136; PULSE 72–147; RESP 14–36; TEMP 36.2–36.6; O2SAT 96–100
[2024-06-29] MEDS: hydrALAZINE 20 MG/ML VIAL 10 MG IV ×2 (01:26→22:32)
[2024-06-29 05:44] LABS: Hematocrit 24.3 % (41-53); Hemoglobin 8.2 g/dL (13.5-17.5); Mean Corpuscular HGB Conc 33.7 % (30-36); Mean Corpuscular Hemoglobin 29.8 PG (26-34); Mean Corpuscular Volume 88.5 fL (80-100); Platelet Count 85 X10^3/uL (150-400); Red Blood Cell Count 2.74 X10^6/uL (4.5-5.9); Red Cell Distribution Width 18.3 % (11.6-14.8); White Blood Cell Count 4.3 X10^3/uL (4.5-11.0)
[2024-06-29 05:52] LABS: BUN Creatinine Ratio 15.6 (6-22); Blood Urea Nitrogen 32 mg/dL (9-20); Carbon Dioxide 23 mmol/L (22-32); Chloride 114 mmol/L (98-107); Estimated Glomerular Filt Rate 37 mL/min (>60); Glucose 92 mg/dL (70-99); HEMOLYSIS < 15 (0-50); Potassium 4.7 mmol/L (3.4-5.1); Sodium 140 mmol/L (137-145)
[2024-06-29] MEDS: HEPARIN 5,000 UNIT/ML VIAL 5000 UNIT SUBCUT ×2 (08:49→20:44)
[2024-06-29] MEDS: METOCLOPRAMIDE HCL 5 MG TABLET 10 MG PO ×4 (08:50→20:45)
[2024-06-29] MEDS: SODIUM CHLORIDE 0.9% 1,000 ML 125 ML IV ×2 (08:50→16:48)
[2024-06-29] MEDS: LIPASE PROTEASE AMYLASE PO ×3 (08:50→17:21)
--- NOTE | 2024-06-29 09:19 | DI.RAD.S_ITS ---
PROCEDURE: XR CHEST 1V INDICATIONS: recent pneu, increased sob TECHNIQUE: One view of the chest was acquired. COMPARISON: [facility], CT, CT CHEST ABD PEL W CON, 06/03/2024, 14:14. [facility], CR, XR CHEST 2V, 04/14/2024, 15:17. [facility], CR, XR CHEST 1V, 12/09/2023, 18:37. FINDINGS: Surgical changes and devices: Right IJ central venous catheter tip projects over the low SVC. ACDF the lower cervical spine.. Lungs and pleura: Hazy central airspace opacities. No pneumothorax. Mediastinum: Mediastinal contours appear normal. Heart size is normal. Bones and chest wall: No suspicious bony lesions. Overlying soft tissues appear unremarkable. IMPRESSION: No pneumothorax. Hazy perihilar opacities, similar to 06/03/2024 . Findings could represent drug reaction, atypical infection or organizing pneumonia. Dictated by: Sarath Pichardo M.D. on 06/29/2024 at 9:41 Approved by: Sarath Pichardo M.D. on 06/29/2024 at 9:44
[2024-06-29] MEDS: LABETALOL 20 MG/4 ML SYRINGE 10 MG IV ×2 (09:27→20:42)
[2024-06-29] MEDS: ALPRAZolam 0.25 MG TABLET 1 MG PO (09:28)
[2024-06-29] MEDS: AMLODIPINE 5 MG TABLET PO (11:20)
[2024-06-29] MEDS: ACETAMINOPHEN 325 MG TABLET 650 MG PO (16:02)
--- NOTE | 2024-06-29 17:06 | P.PN_ITS ---
Subjective Subjective Date Patient Seen: 06/29/24 Interval history: Chief complaint: Leg swelling and acute kidney injury History of present illness: 59-year-old male with stage IV pancreas cancer. He was diagnosed about a year ago and completed multiple rounds of 5 FU but did not tolerate chemotherapy. Ultimately he began to see Dr. Espinoza in [place] and pursue integrative treatments with [employer]: nomic therapy. The patient developed leg edema about 2 months ago, this coincided with starting ivermectin as a another treatment. The patient has left greater than right leg swelling. He denies any orthopnea, or dyspnea. A recent PET scan was read as negative, no evidence of metastatic disease. He previously had right lung disease noted. The patient returned from [facility] and saw his PCP. His creatinine was elevated with mild hyperkalemia, this is new. He was no history of renal disease. He has been on Lasix once a day for 5 days for 2 cycles over the last several weeks. He will have temporary improvement of his edema. He denies any hemoptysis. He lost about 50 lb over the last year and has gained back about 35 lb. He was a good appetite. Denies any diarrhea or blood per rectum. Hospital course: Dyspnea on exertion today after going walking to the bathroom today creatinine is a little better at 2.06 and BUN is 34 no DVT on lower extremity Doppler echocardiogram 1. The left ventricular contractility is borderline. Estimated ejection fraction is approximately 50 to 55% with no segmental wall motion abnormalities. Mild concentric LVH. Indeterminate diastolic function. 2. The right ventricle contractility is normal. 3. Mild left atrial enlargement. All of your cardiac chambers are of normal size. 4. Tricuspid regurgitation noted on spectral display only. Estimated pulmonary systolic artery pressure is 44 mmHg. 5. No obvious intracardiac shunts. 6. No obvious intracardiac masses nor thrombi. 7. No hemodynamically significant pericardial effusion. 8. Elevated right-sided filling pressures. Assessment and plan: 1. AZEEM, present on admission and improving. Discussed the case with Dr. Espinoza's office review of the literature and Dr. Espinoza experienced there is some incidents of hemolytic uremic syndrome apparently this is a rare complication. -LDH haptoglobin total bilirubin -24 hour urine for creatinine total protein -ultrasound kidneys -arrange for outpatient renal artery Doppler and referral to Nephrology 2. Stage 4 pancreatic cancer appears to be in remission with treatment, present on admission and active. 3. Hyperkalemia, present on admission and improved. 4. Left greater than right leg edema, present on admission and active. Time-Based Coding :: 55 spent with patient and on the chart (including review of chart, obtaining history, exam, reviewing outside data, placing orders, documenting exam and treatment plan, and counseling patient). Exam Vital Signs (past 8 hours): - 06/29/24 09:17 06/29/24 09:27 06/29/24 10:15 Temperature 97.2 F L Pulse Rate 87 88 82 Respiratory Rate 20 Blood Pressure 178/100 H 178/105 H 194/99 H Pulse Oximetry 96 Oxygen Flow Rate 0 06/29/24 13:53 Temperature Pulse Rate 78 Respiratory Rate 18 Blood Pressure 160/93 H Pulse Oximetry Oxygen Flow Rate Oxygen Delivery Method Room Air Oxygen Flow Rate 0 Objective Labs 06/29/24 05:30 06/29/24 05:30 Labs: Laboratory Results - last 24 hr 06/28/24 06/29/24 16:00 05:30 WBC 4.3 L RBC 2.74 L Hgb 8.2 L Hct 24.3 L MCV 88.5 MCH 29.8 MCHC 33.7 RDW 18.3 H Plt Count 85 L Sodium 140 Potassium 4.7 Chloride 114 H Carbon Dioxide 23 BUN 32 H Creatinine 2.05 H Estimated GFR 37 L BUN/Creatinine Ratio 15.6 Glucose 92 Calcium 8.0 L Vitamin B12 726 Folate 12.4 PFSH Medical History Neoplasm related pain Malignant neoplasm of pancreas GERD (gastroesophageal reflux disease) Bilateral hip pain Greater trochanteric bursitis of both hips Right hip pain Left hip pain Arthritis of left acromioclavicular joint Impingement of right shoulder Bilateral shoulder pain Social History marital status: household members: spouse lives independently: Yes occupational status: employed Smoking Status: Never smoker alcohol intake: never substance use type: marijuana Assessment & Plan Time-Based Coding :: [TOTAL MINUTES] spent with patient and on the chart (including review of chart, obtaining history, exam, reviewing outside data, placing orders, documenting exam and treatment plan, and counseling patient) on [DATE]. Quality VTE Deep Vein Thrombosis/Pulmonary Embolism Present on Admission: No
--- NOTE | 2024-06-29 17:53 | PC.NURSE ---
Pt A&Ox4, ind in room, expressing SOB on exertion, provider notified. Pt educated on 24-hour urine collection, pt verbalizes understanding. Resting in bed, call light within reach. Care ongoing.
[2024-06-29 17:59] LABS: Bilirubin Total 0.9 mg/dL (0.2-1.3); Lactate Dehydrogenase 733 U/L (120-246)
[2024-06-29] MEDS: MIRTAZAPINE 15 MG TABLET 7.5 MG PO (20:44)
[2024-06-29] MEDS: ALPRAZolam 0.25 MG TABLET 2 MG PO (20:45)
[2024-06-29] MEDS: GABAPENTIN 300 MG CAPSULE 600 MG PO (20:46)
--- NOTE | 2024-06-29 23:14 | EKG_ITS ---
[address] [address] [address] [address] Test Date: 2024-06-29 Pat Name: Asher Hernández Department: Room: 231 Gender: Male Communications Engineer: DANIEL : 1965 Requested By: Order Number: [id number] Reading MD: Raffaele Valadez MD Measurements Intervals [place] Rate: 129 P: MS: 136 QRS: 111 QRSD: 108 T: 64 QT: 352 QTc: 515 Interpretive Statements Sinus tachycardia Right axis deviation Electronically Signed On 06-30-2024 11:51:11 PDT by Raffaele Valadez MD
--- NOTE | 2024-06-29 23:15 | DI.RAD.S_ITS ---
PROCEDURE: XR CHEST 1V INDICATIONS: Code Blue, resuscitated TECHNIQUE: One view of the chest was acquired. COMPARISON: [facility], CR, XR CHEST 1V, 06/29/2024, 9:21. FINDINGS: Surgical changes and devices: Postsurgical changes in lower cervical spine are again seen. Right chest wall Port-A-Cath tip is in SVC. Lungs and pleura: There is pulmonary vascular congestion and suggestion of pulmonary edema. Underlying bilateral multilobar infiltrates cannot be excluded. Blunting of left costophrenic angle suggestive of trace left pleural effusion. No definite focal infiltrate. No pneumothorax. Mediastinum: Mediastinal contours appear normal. Heart size is enlarged. Bones and chest wall: No suspicious bony lesions. Overlying soft tissues appear unremarkable. IMPRESSION: Cardiomegaly and mild congestion. Hazy opacities in bilateral lung corbett suggestive of pulmonary edema. Superimposed bilateral multilobar infiltrates cannot be excluded. Trace left pleural effusion. No pneumothorax. Dictated by: Ventura Swain M.D. on 06/29/2024 at 23:34 Approved by: Ventura Swain M.D. on 06/29/2024 at 23:35
[2024-06-29] MEDS: NITROGLYCERIN 50 MG/250 ML INFUS..BTL IV (23:17)
[2024-06-29] MEDS: FUROSEMIDE 40 MG/4 ML VIAL IV (23:20)
[2024-06-29 23:33] LABS: Base Excess ABG -4.8 mmol/L (-2-3); HCO3 ABG 21 mmol/L (23-27); Oxygen Saturation ABG 100 % (95-100); PCO2 ABG 38.6 mmHg (35-45); PO2 ABG 402 mmHg (80-100); TCO2 ABG 20 mmol/L (23-27); pH ABG 7.34 (7.35-7.45)
[2024-06-29 23:35] LABS: Add Manual Diff / Slide Review NO; Basophils Absolute Auto 200 /uL (0-100); Basophils Percent Auto 1.8 % (0-2); Eosinophils Absolute Auto 200 /uL (0-450); Eosinophils Percent Auto 2.2 % (2-4); Hematocrit 30.3 % (41-53); Hemoglobin 10.2 g/dL (13.5-17.5); Lymphocytes Absolute Auto 3600 /uL (1100-4500); Lymphocytes Percent Auto 37.6 % (25-40); Mean Corpuscular HGB Conc 33.6 % (30-36); Mean Corpuscular Hemoglobin 30.1 PG (26-34); Mean Corpuscular Volume 89.6 fL (80-100); Monocytes Absolute Auto 2000 /uL (0-900); Monocytes Percent Auto 21.2 % (3-14); Neutrophils Absolute Auto 3600 /uL (1500-7000); Neutrophils Percent Auto 37.2 % (50-75); Platelet Count 151 X10^3/uL (150-400); Red Blood Cell Count 3.38 X10^6/uL (4.5-5.9); Red Cell Distribution Width 18.7 % (11.6-14.8); White Blood Cell Count 9.5 X10^3/uL (4.5-11.0)
[2024-06-29 23:53] LABS: Blood Urea Nitrogen 31 mg/dL (9-20); Calcium 8.4 mg/dL (8.4-10.2); Carbon Dioxide 17 mmol/L (22-32); Chloride 113 mmol/L (98-107); Estimated Glomerular Filt Rate 33 mL/min (>60); Glucose 139 mg/dL (70-99); HEMOLYSIS < 15 (0-50); Potassium 4.5 mmol/L (3.4-5.1); Sodium 142 mmol/L (137-145)
[2024-06-30] VITALS (61 sets, daily range): BP systolic 124–215; BP diastolic 62–116; PULSE 80–119; RESP 13–28; TEMP 36.2–36.8; O2SAT 90–100
--- NOTE | 2024-06-30 00:38 | P.EN_ITS ---
Event Note Event Note (Rapid Response, Code, or fall): Rapid response was called as patient acute became hypoxemic despite being on his 2L O2 per NC. IVF @125ml/hr was stopped. Our ER physician evaluated and start patient Bipap. Note patient has been having elevated SBP in 200s and after prn IV Labetalol. PRN IV Hydralazine also ordered with improvement of SBP to 160- 170s. CXR stat shows sign of flash pulmonary edema. Nitroglycerin drip ordered and Lasix 40mg IV x 1 given. I did beam on to evaluate the patient at the same time and move the patient to ICU and conitnue to monitor patient on IV lasix 40mg q8hrs. Patient respiratory status improve as well as BP. Patient mentating well. continue to monitor closely. Note patient is a full code.
[2024-06-30] MEDS: ACETAMINOPHEN 325 MG TABLET 650 MG PO (01:42)
[2024-06-30] MEDS: LABETALOL 20 MG/4 ML SYRINGE 10 MG IV (02:31)
[2024-06-30] MEDS: ALPRAZolam 0.25 MG TABLET 1 MG PO (02:33)
[2024-06-30] MEDS: HYDROMORPHONE 2 MG TABLET PO (02:34)
[2024-06-30 04:08] LABS: Haptoglobin < 10 mg/dL (29-370)
--- NOTE | 2024-06-30 04:39 | PC.NURSE ---
Addendum entered by Jen Paredes R.N. 06/30/24 06:44: 0400-Patient still c/o headache, nitro gtt decreased to 15mcg/min, cuff BP 184/90, HR 103. SpO2 95% on 2L NC, patient has been able to doze intermittently. 629-Patient is sleeping, IV Lasix 40mg given per schedule, A-line BP 190s/80s, HR 100. Total UOP >2300ml, on ice in collection bins. now at bedside. Original Note: Customer Care Agent Notes- 2029-Initial assessment-patient A/Ox4, talking to on cell phone. Denies pain but was c/o of mild shortness of breath and audible wheezing, SpO2 96% RA, crackles bases. BP 191/95, 10mg IV labetalol given per prn. 24 hr Urine collection in progress. Patients routine HS meds given, including 2mg Xanax. 2144-Hospitalist Dr. Khoury notified about elevated BP, wheezing, and shortness of breath, IVF rate decreased to 75ml/hr, 10mg IV hydralazine prn ordered and given. BP 205/102. At 2305-Rapid Response initiated. Patient used call light to report I can't breath He was tachypneic 40s, cyanotic, SpO2 decreasing to 58%, NRB 100% placed which brought sats up to 98% HR 146, BP 231/129. ED and RN, RTs, and Code Team at bedside. 2314-1 SL nitro given, followed by nitro gtt started at 5mcg/min, titrated up to 20mcg/min by 6 per ED order. Bipap placed at 2316 ending up at 40% FIO2 12/8. 40mg IV Lasix x1 given, IVF DC'd, except TKO with meds. ABG, CXR, and labs drawn. Dr. Khoury brought up on [place] monitor to see patient. Order received to move patient to ICU. [id number] transfered to ICU room 231. Rt radial A-line placed by ED BP remians 220/105 range-see vital trends. Casiano catheter with urometer placed, diuresing large amount pale urine. 0200-Patient was able to doze briefly. Woke with horrible headache and requesting Bipap off, Tylenol given, ice pack placed to back of neck, and placed on 2L NC, SpO2 remained >94%, denied shortness of breath. 0220-Dr. Khoury notified about headache, continued HTN, increased UOP, and patient now tolerating NC. Order received to given prn labetalol and 1x dose Dilaudid 2mg PO.
--- NOTE | 2024-06-30 05:08 | RT ---
Pt wanted a break from Bipap Nurse removed mask and placed pt on NC 2L sat 95% @0200
[2024-06-30] MEDS: FUROSEMIDE 40 MG/4 ML VIAL IV ×2 (06:00→13:34)
[2024-06-30 06:12] LABS: Hematocrit 24.9 % (41-53); Hemoglobin 8.6 g/dL (13.5-17.5); Mean Corpuscular HGB Conc 34.5 % (30-36); Mean Corpuscular Hemoglobin 30.2 PG (26-34); Mean Corpuscular Volume 87.5 fL (80-100); Platelet Count 80 X10^3/uL (150-400); Red Blood Cell Count 2.85 X10^6/uL (4.5-5.9); Red Cell Distribution Width 18.1 % (11.6-14.8); White Blood Cell Count 5.5 X10^3/uL (4.5-11.0)
[2024-06-30 06:25] LABS: BUN Creatinine Ratio 16.4 (6-22); Blood Urea Nitrogen 36 mg/dL (9-20); Calcium 8.5 mg/dL (8.4-10.2); Carbon Dioxide 20 mmol/L (22-32); Chloride 112 mmol/L (98-107); Estimated Glomerular Filt Rate 34 mL/min (>60); Glucose 145 mg/dL (70-99); HEMOLYSIS < 15 (0-50); Potassium 5.3 mmol/L (3.4-5.1); Sodium 137 mmol/L (137-145)
--- NOTE | 2024-06-30 07:00 | DI.US.S_ITS ---
PROCEDURE: US RENAL COMPLETE INDICATIONS: AZEEM TECHNIQUE: Real-time scanning was performed of the kidneys and bladder, with image documentation. COMPARISON: None. FINDINGS AND IMPRESSION: The kidneys measures 12 cm each. No hydronephrosis. No solid renal mass. Casiano is seen in the bladder. Dictated by: Kodi Negron M.D. on 06/30/2024 at 10:15 Approved by: Kodi Negron M.D. on 06/30/2024 at 10:17
[2024-06-30] MEDS: HYDROMORPHONE 1 MG INJ IV (08:12)
[2024-06-30] MEDS: METOCLOPRAMIDE HCL 5 MG TABLET 10 MG PO ×3 (08:20→18:06)
--- NOTE | 2024-06-30 08:36 | PM.DS.1 ---
History of Present Illness History of Present Illness Date Patient Seen: 06/30/24 Chief complaint: Possible Kidney Blockage sent from [facility] Narrative: Chief complaint: Leg swelling and acute kidney injury History of present illness: 59-year-old male with stage IV pancreas cancer. He was diagnosed about a year ago and completed multiple rounds of 5 FU but did not tolerate chemotherapy. Side effect complications were profound and could not continue this therapy Ultimately he began to see Dr. Espinoza in [place] and pursue integrative treatments with Metron[employer] therapy. ( gemditabine and abraxane --albumin-bound paclitaxel--)The patient developed leg edema about 2 months ago, this coincided with starting ivermectin as a another treatment. The patient has left greater than right leg swelling. He denies any orthopnea, or dyspnea. A recent PET scan was read as negative, no evidence of metastatic disease. He previously had right lung disease noted. The patient returned from [facility] and saw his PCP. His creatinine was elevated with mild hyperkalemia, this is new. He was no history of renal disease. He has been on Lasix once a day for 5 days for 2 cycles over the last several weeks. He will have temporary improvement of his edema. He denies any hemoptysis. He lost about 50 lb over the last year and has gained back about 35 lb. He was a good appetite. Patient also through research of nonmedical literature took the following substances as well along with his chemotherapy Fenbendazole, ivermectin, Tauroursodeoxycholic acid, Serrapeptase turkey tail fungus and THC oil Denied any fever nausea abdominal pain diarrhea or blood per rectum. Hospital course: 06/28: Dyspnea on exertion today after going walking to the bathroom today creatinine is a little better at 2.06 and BUN is 34 no DVT on lower extremity Doppler echocardiogram 1. The left ventricular contractility is borderline. Estimated ejection fraction is approximately 50 to 55% with no segmental wall motion abnormalities. Mild concentric LVH. Indeterminate diastolic function. 2. The right ventricle contractility is normal. 3. Mild left atrial enlargement. All of your cardiac chambers are of normal size. 4. Tricuspid regurgitation noted on spectral display only. Estimated pulmonary systolic artery pressure is 44 mmHg. 5. No obvious intracardiac shunts. 6. No obvious intracardiac masses nor thrombi. 7. No hemodynamically significant pericardial effusion. 8. Elevated right-sided filling pressures. 06/29: Overnight events: Event Note (Rapid Response, Code, or fall): Rapid response was called as patient acute became hypoxemic despite being on his 2L O2 per NC. IVF @125ml/hr was stopped. Our ER physician evaluated and start patient Bipap. Note patient has been having elevated SBP in 200s and after prn IV Labetalol. PRN IV Hydralazine also ordered with improvement of SBP to 160-170s. CXR stat shows sign of flash pulmonary edema. Nitroglycerin drip ordered and Lasix 40mg IV x 1 given. I did beam on to evaluate the patient at the same time and move the patient to ICU and conitnue to monitor patient on IV lasix 40mg q8hrs. Patient respiratory status improve as well as BP. Patient mentating well. continue to monitor closely. Note patient is a full code. Treatment 0730 a.m.: Continues to be on IV nitroglycerin drip but with headache attempt to switch to IV labetalol options for nicardipine if I labetalol ineffective Assessment and plan: 1. 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 Espinoza's office review of the literature and Dr. Espinoza experienced there is some incidents of hemolytic uremic syndrome apparently this is a rare complication. -LDH haptoglobin total bilirubin -24 hour urine for creatinine total protein -ultrasound kidneys 2. Stage 4 pancreatic cancer appears to be in remission with treatment, present on admission and active. 3. Hyperkalemia, present on admission and improved. 4. Left greater than right leg edema, present on admission and active. Disposition: Transfer to higher level of care communicated with [facility] also referred to [facility]. Dr. Espinoza can participate in care it either institution via telephone Patient accepted to [facility] oncology ICU Dr. Avila and Dr. Caballero Time-Based Coding :: 55 spent with patient and on the chart (including review of chart, obtaining history, exam, reviewing outside data, placing orders, documenting exam and treatment plan, and counseling patient). Discharge Providers Provider Date of admission: 06/29/24 10:18 Discharge Date: 06/30/24 Primary care physician: Joana Zapata MD Discharge provider: Ivan Sun MD Exam Vital Signs (past 8 hours): - 06/30/24 00:45 06/30/24 01:00 06/30/24 01:00 Pulse Rate 111 H 112 H Respiratory Rate 19 22 Blood Pressure 192/112 H Pulse Oximetry 100 99 Oxygen Delivery Method 06/30/24 01:30 06/30/24 02:00 06/30/24 02:00 Pulse Rate 118 H 111 H Respiratory Rate 20 26 H Blood Pressure 190/99 H Pulse Oximetry 100 94 Oxygen Delivery Method 06/30/24 02:30 06/30/24 02:31 06/30/24 03:00 Pulse Rate 119 H 118 H 97 H Respiratory Rate 25 H Blood Pressure 215/97 H 200/96 H Pulse Oximetry 96 Oxygen Delivery Method 06/30/24 03:00 06/30/24 03:00 06/30/24 03:30 Pulse Rate 96 H 104 H Respiratory Rate 21 25 H Blood Pressure 172/88 H Pulse Oximetry 94 95 Oxygen Delivery Method 06/30/24 04:00 06/30/24 04:00 06/30/24 04:30 Pulse Rate 103 H 102 H Respiratory Rate 25 H 23 Blood Pressure 184/91 H Pulse Oximetry 95 94 Oxygen Delivery Method 06/30/24 05:00 06/30/24 05:00 06/30/24 05:00 Pulse Rate 105 H Respiratory Rate 28 H Blood Pressure 192/105 H Pulse Oximetry 94 Oxygen Delivery Method Nasal Cannula 06/30/24 05:30 06/30/24 06:00 06/30/24 06:00 Pulse Rate 96 H 98 H Respiratory Rate 22 20 Blood Pressure 191/93 H Pulse Oximetry 95 97 Oxygen Delivery Method 06/30/24 06:30 06/30/24 07:00 06/30/24 07:00 Pulse Rate 99 H 106 H Respiratory Rate 20 23 Blood Pressure 187/91 H Pulse Oximetry 95 95 Oxygen Delivery Method Fraction of Inspired Oxygen 40 Oxygen Delivery Method Nasal Cannula Oxygen Flow Rate 0 Objective Labs 06/30/24 05:57 06/30/24 05:57 Labs: Laboratory Results - last 24 hr 06/29/24 06/29/24 06/29/24 17:24 17:26 23:12 WBC 9.5 D RBC 3.38 L Hgb 10.2 L Hct 30.3 L MCV 89.6 MCH 30.1 MCHC 33.6 RDW 18.7 H Plt Count 151 Neut % (Auto) 37.2 L Lymph % (Auto) 37.6 Hinds % (Auto) 21.2 H Eos % (Auto) 2.2 Baso % (Auto) 1.8 Neut # (Auto) 3600 Lymph # (Auto) 3600 Hinds # (Auto) 2000 H Eos # (Auto) 200 Baso # (Auto) 200 H Haptoglobin < 10 L ABG pH ABG pCO2 ABG pO2 ABG HCO3 ABG Total CO2 ABG O2 Saturation ABG Base Excess Sodium 142 Potassium 4.5 Chloride 113 H Carbon Dioxide 17 L BUN 31 H Creatinine 2.21 H Estimated GFR 33 L BUN/Creatinine Ratio 14.0 Glucose 139 H Calcium 8.4 Total Bilirubin 0.9 Lactate Dehydrogenase 733 H Direct Antiglob Test Negative 06/29/24 06/30/24 23:28 05:57 WBC 5.5 RBC 2.85 L Hgb 8.6 L Hct 24.9 L MCV 87.5 MCH 30.2 MCHC 34.5 RDW 18.1 H Plt Count 80 L Neut % (Auto) Lymph % (Auto) Hinds % (Auto) Eos % (Auto) Baso % (Auto) Neut # (Auto) Lymph # (Auto) Hinds # (Auto) Eos # (Auto) Baso # (Auto) Haptoglobin ABG pH 7.34 L ABG pCO2 38.6 ABG pO2 402 H* ABG HCO3 21 L ABG Total CO2 20 L ABG O2 Saturation 100 ABG Base Excess -4.8 L Sodium 137 Potassium 5.3 H Chloride 112 H Carbon Dioxide 20 L BUN 36 H Creatinine 2.20 H Estimated GFR 34 L BUN/Creatinine Ratio 16.4 Glucose 145 H Calcium 8.5 Total Bilirubin Lactate Dehydrogenase Direct Antiglob Test [facility] Medical History Neoplasm related pain Malignant neoplasm of pancreas GERD (gastroesophageal reflux disease) Bilateral hip pain Greater trochanteric bursitis of both hips Right hip pain Left hip pain Arthritis of left acromioclavicular joint Impingement of right shoulder Bilateral shoulder pain Social History marital status: household members: spouse lives independently: Yes occupational status: employed Smoking Status: Never smoker alcohol intake: never substance use type: marijuana Discharge Plan Discharge orders & Medications Discharge Orders: Discharge (Order); Ordered 06/30/24 Ordered By: Ivan Sun Prescriptions: No Action Fenbendazole 500 mg 500 mg PO DAILY Rx Instructions: Wednesday through Wednesday alprazolam [Xanax] 1 mg tablet 1 mg PO BID Disabled Parking Permit See Rx Instructions .ROUTE .COMPLEX Qty: 1 0RF Rx Instructions: I find this patient to be medically disabled and qualify for disabled parking as indicated and signed on the accompanying disabled parking application for individuals. fenofibrate 160 mg tablet 160 mg PO DAILY Qty: 90 3RF alprazolam 1 mg tablet 2 mg PO BEDTIME metoclopramide HCl 10 mg tablet 10 mg PO QID Rx Instructions: Morning, lunch, dinner, and bedtime mirtazapine 7.5 mg tablet 7.5 mg PO BEDTIME Creon 36,000-114,000- 180,000 unit capsule,delayed release(DR/EC) 2 - 4 cap PO 3XD gabapentin 300 mg capsule 600 mg PO BEDTIME Follow up/Referrals: Joana Zapata MD [Primary Care Provider] - Discharge Data Primary Care Provider: Joana Zapata Quality VTE Deep Vein Thrombosis/Pulmonary Embolism Present on Admission: No
[2024-06-30] MEDS: LIPASE PROTEASE AMYLASE PO ×2 (08:37→18:06)
[2024-06-30] MEDS: ONDANSETRON 4 MG/2 ML INJ IV (09:48)
--- NOTE | 2024-06-30 10:11 | PC.NURSE ---
Day shift: Pt fatigued but A&Ox4, at bedside. Pt reports headache. Provider at bedside, pt and verbalize understanding on disease process. Arterial line in place and zeroed. Pt n/v, emesis unmeasurable. Provider notified. Care ongoing.
[2024-06-30] MEDS: LABETALOL 20 MG/4 ML SYRINGE IV (12:26)
[2024-06-30] MEDS: NICARDIPINE 25 MG in SODIUM CHLORIDE 0.9% 240 ML 50 MG IV ×2 (13:09→18:02)
--- NOTE | 2024-06-30 14:45 | CM.DPNOTE ---
DCP Cont Reviewed chart. Patient discussed in multidisciplinary rounds. Rapid response called the evening of 06/29. 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 Patient accepted to [facility] oncology ICU Dr. Avila and Dr. Caballero. bed availability pending. Sp following along closely and will likely meet patient at if transferred this evening. CM team following clinical course closely. RICCI
[2024-06-30 15:05] LABS: INR 1.1 (0.9-1.3); Prothrombin Time 12.4 SECONDS (9.4-12.5)
[2024-06-30 15:15] LABS: Reticulocyte Count, Percent 2.8 % (0.9-2.6)
[2024-06-30] MEDS: MIRTAZAPINE 15 MG TABLET 7.5 MG PO (20:56)
[2024-06-30] MEDS: ALPRAZolam 0.25 MG TABLET 2 MG PO (20:56)
[2024-06-30] MEDS: GABAPENTIN 300 MG CAPSULE 600 MG PO (20:56)
--- NOTE | 2024-06-30 21:27 | PC.NURSE ---
Discharge note-Patient left at 2124 with ALS transport to [facility], report given to receiving RN. Patient A/Ox4, calm, denies respiratory distress on RA 97%, denies pain. Nicardipine gtt infusing at 5mg/hr. A-line Lt radial patent, 154/72, HR 115. HS medications given, including 2mg Xanax. Bottle of Creon sent along with all patient belongings. 24 hr urine collection will be taken to lab.
[2024-06-30 22:26] LABS: Collection Time Urine 24 Hours; Creatinine 24 Hour Urine 1471 mg/day (1000-2000); Creatinine Urine Random 33.43 mg/dL; Total Volume Urine 4400 mL
[2024-07-01 04:10] LABS: Complement C3 123 mg/dL (82-167)
[2024-07-04 02:36] LABS: Complement Total CH50 59 U/mL (>41)
== END 2024-06-30 21:25 | disposition short-term general hospital (02) | DRG 811 ==
LOC: ED 14:45 → AC 16:35 → ICU 06-29 23:57
PROVIDERS: Internal Medicine; Student in an Organized Health Care Education/Training Program; Admitting Provider Hospitalist; Emergency Provider Emergency Medicine; PCP Family Medicine; Referring Provider Emergency Medicine; Visit Provider Hospitalist
DX: D59.39 Other hemolytic-uremic syndrome (principal); J81.0 Acute pulmonary edema; N17.9 Acute kidney failure, unspecified; C25.9 Malignant neoplasm of pancreas, unspecified; E87.5 Hyperkalemia; R60.0 Localized edema; F17.210 Nicotine dependence, cigarettes, uncomplicated; Z95.828 Presence of other vascular implants and grafts; D64.9 Anemia, unspecified; Z86.39 Personal history of other endocrine, nutritional and metabolic disease
CPT/HCPCS: 36415; 36591; 36600; 71045; 76770; 80048; 80053; 81001; 82043; 82088; 82247; 82570; 82607; 82728; 82746; 82805; 83010; 83540; 83550; 83615; 84244; 84443; 85025; 85027; 85045; 85610; 86160; 86162; 86880; 93005; 93306; 93970; 94660; 96360; 99284; G0378; J0360; J1171; J1642; J1644; J1938; J2405

== ENCOUNTER → 2024-07-07 11:11 | Outpatient (CLI) | payer OTHER, SELFPAY ==
[2024-06-27 17:49] VITALS: BMI 31.4
[2024-06-29 23:35] VITALS: PULSE 117; RESP 33; O2SAT 100
[2024-07-07 12:13] LABS: Add Manual Diff / Slide Review NO; Basophils Absolute Auto 100 /uL (0-100); Basophils Percent Auto 1.1 % (0-2); Eosinophils Absolute Auto 100 /uL (0-450); Eosinophils Percent Auto 1.5 % (2-4); Hematocrit 25.7 % (41-53); Hemoglobin 8.8 g/dL (13.5-17.5); Lymphocytes Absolute Auto 600 /uL (1100-4500); Lymphocytes Percent Auto 13.8 % (25-40); Mean Corpuscular Hemoglobin 28.9 PG (26-34); Mean Corpuscular Volume 85.1 fL (80-100); Monocytes Absolute Auto 600 /uL (0-900); Monocytes Percent Auto 12.2 % (3-14); Neutrophils Absolute Auto 3300 /uL (1500-7000); Neutrophils Percent Auto 71.4 % (50-75); Platelet Count 82 X10^3/uL (150-400); Red Blood Cell Count 3.03 X10^6/uL (4.5-5.9); White Blood Cell Count 4.7 X10^3/uL (4.5-11.0)
[2024-07-07 12:38] LABS: Alanine Aminotransferase 17 IU/L (<50); Albumin 3.3 g/dL (3.5-5.0); Albumin Globulin Ratio 1.4 (1.0-2.8); Alkaline Phosphatase 52 U/L (38-126); Aspartate Aminotransferase 38 IU/L (17-59); BUN Creatinine Ratio 16.8 (6-22); Bilirubin Total 0.5 mg/dL (0.2-1.3); Bilirubin Unconjugated 0.1 mg/dL (0.0-1.1); Blood Urea Nitrogen 49 mg/dL (9-20); Calcium 8.4 mg/dL (8.4-10.2); Carbon Dioxide 24 mmol/L (22-32); Chloride 107 mmol/L (98-107); Estimated Glomerular Filt Rate 24 mL/min (>60); Globulin 2.3 g/dL (1.7-4.1); Glucose 154 mg/dL (70-99); HEMOLYSIS < 15 (0-50); Lactate Dehydrogenase 577 U/L (120-246); Magnesium 1.9 mg/dL (1.6-2.3); Phosphorous 5.9 mg/dL (2.5-4.5); Sodium 136 mmol/L (137-145); Total Protein 5.6 g/dL (6.3-8.2)
== END ==
PROVIDERS: PCP Family Medicine; Referring Provider Internal Medicine Hematology & Oncology; Visit Provider Internal Medicine Hematology & Oncology
DX: C25.1 Malignant neoplasm of body of pancreas (principal); E83.40 Disorders of magnesium metabolism, unspecified; R94.5 Abnormal results of liver function studies; E83.30 Disorder of phosphorus metabolism, unspecified; E83.42 Hypomagnesemia
CPT/HCPCS: 36415; 80053; 80076; 83615; 83735; 84100; 85025

== ENCOUNTER → 2024-07-17 10:59 | Outpatient (CLI) | payer OTHER, SELFPAY ==
[2024-06-27 17:49] VITALS: BMI 31.4
[2024-06-29 23:35] VITALS: PULSE 117; RESP 33; O2SAT 100
[2024-07-17 11:53] LABS: Add Manual Diff / Slide Review NO; Basophils Absolute Auto 100 /uL (0-100); Basophils Percent Auto 1.1 % (0-2); Eosinophils Absolute Auto 100 /uL (0-450); Eosinophils Percent Auto 2.4 % (2-4); Hematocrit 31.4 % (41-53); Hemoglobin 10.5 g/dL (13.5-17.5); Lymphocytes Absolute Auto 700 /uL (1100-4500); Lymphocytes Percent Auto 13.4 % (25-40); Mean Corpuscular HGB Conc 33.6 % (30-36); Mean Corpuscular Hemoglobin 29.1 PG (26-34); Mean Corpuscular Volume 86.7 fL (80-100); Monocytes Absolute Auto 500 /uL (0-900); Monocytes Percent Auto 9.3 % (3-14); Neutrophils Absolute Auto 3700 /uL (1500-7000); Neutrophils Percent Auto 73.8 % (50-75); Platelet Count 150 X10^3/uL (150-400); Red Blood Cell Count 3.62 X10^6/uL (4.5-5.9); Red Cell Distribution Width 17.1 % (11.6-14.8); White Blood Cell Count 5.1 X10^3/uL (4.5-11.0)
[2024-07-17 12:14] LABS: Alanine Aminotransferase 13 IU/L (<50); Albumin 3.9 g/dL (3.5-5.0); Albumin Globulin Ratio 1.5 (1.0-2.8); Alkaline Phosphatase 44 U/L (38-126); Aspartate Aminotransferase 30 IU/L (17-59); BUN Creatinine Ratio 18.7 (6-22); Bilirubin Total 0.5 mg/dL (0.2-1.3); Bilirubin Unconjugated 0.1 mg/dL (0.0-1.1); Blood Urea Nitrogen 50 mg/dL (9-20); Calcium 9.1 mg/dL (8.4-10.2); Carbon Dioxide 29 mmol/L (22-32); Chloride 104 mmol/L (98-107); Estimated Glomerular Filt Rate 27 mL/min (>60); Globulin 2.6 g/dL (1.7-4.1); Glucose 135 mg/dL (70-99); HEMOLYSIS < 15 (0-50); Lactate Dehydrogenase 345 U/L (120-246); Magnesium 2.1 mg/dL (1.6-2.3); Phosphorous 5.5 mg/dL (2.5-4.5); Potassium 4.7 mmol/L (3.4-5.1); Sodium 139 mmol/L (137-145); Total Protein 6.5 g/dL (6.3-8.2)
== END ==
LOC: LAB 11:02
PROVIDERS: PCP Family Medicine
DX: C25.1 Malignant neoplasm of body of pancreas (principal); E83.40 Disorders of magnesium metabolism, unspecified; R94.5 Abnormal results of liver function studies
CPT/HCPCS: 36415; 80053; 80076; 83615; 83735; 84100; 85025

== ENCOUNTER → 2024-07-25 14:28 | Outpatient (CLI) | payer OTHER, SELFPAY ==
[2024-06-27 17:49] VITALS: BMI 31.4
[2024-06-29 23:35] VITALS: PULSE 117; RESP 33; O2SAT 100
[2024-07-25 14:59] LABS: Add Manual Diff / Slide Review NO; Basophils Absolute Auto 0 /uL (0-100); Basophils Percent Auto 0.4 % (0-2); Eosinophils Absolute Auto 200 /uL (0-450); Hematocrit 28.9 % (41-53); Lymphocytes Absolute Auto 800 /uL (1100-4500); Lymphocytes Percent Auto 15.1 % (25-40); Mean Corpuscular HGB Conc 34.7 % (30-36); Mean Corpuscular Hemoglobin 30.4 PG (26-34); Mean Corpuscular Volume 87.4 fL (80-100); Monocytes Absolute Auto 500 /uL (0-900); Monocytes Percent Auto 9.4 % (3-14); Neutrophils Absolute Auto 3700 /uL (1500-7000); Neutrophils Percent Auto 72.1 % (50-75); Platelet Count 165 X10^3/uL (150-400); Red Cell Distribution Width 16.3 % (11.6-14.8); White Blood Cell Count 5.1 X10^3/uL (4.5-11.0)
[2024-07-25 15:16] LABS: Alanine Aminotransferase 11 IU/L (<50); Albumin Globulin Ratio 1.7 (1.0-2.8); Alkaline Phosphatase 45 U/L (38-126); Aspartate Aminotransferase 29 IU/L (17-59); BUN Creatinine Ratio 22.5 (6-22); Bilirubin Total 0.4 mg/dL (0.2-1.3); Blood Urea Nitrogen 47 mg/dL (9-20); Carbon Dioxide 26 mmol/L (22-32); Chloride 109 mmol/L (98-107); Estimated Glomerular Filt Rate 36 mL/min (>60); Globulin 2.3 g/dL (1.7-4.1); Glucose 112 mg/dL (70-99); HEMOLYSIS < 15 (0-50); Potassium 5.7 mmol/L (3.4-5.1); Sodium 141 mmol/L (137-145); Total Protein 6.3 g/dL (6.3-8.2)
== END ==
PROVIDERS: PCP Family Medicine; Referring Provider Family Medicine; Visit Provider Family Medicine
DX: N17.9 Acute kidney failure, unspecified (principal); R60.0 Localized edema; D64.9 Anemia, unspecified
CPT/HCPCS: 36415; 80053; 85025

== ENCOUNTER → 2024-07-29 10:34 | Outpatient (CLI) | payer OTHER, SELFPAY ==
[2024-06-27 17:49] VITALS: BMI 31.4
[2024-06-29 23:35] VITALS: PULSE 117; RESP 33; O2SAT 100
[2024-07-29 11:28] LABS: BUN Creatinine Ratio 19.2 (6-22); Blood Urea Nitrogen 38 mg/dL (9-20); Calcium 9.2 mg/dL (8.4-10.2); Carbon Dioxide 22 mmol/L (22-32); Chloride 111 mmol/L (98-107); Estimated Glomerular Filt Rate 38 mL/min (>60); Glucose 97 mg/dL (70-99); HEMOLYSIS < 15 (0-50); Sodium 139 mmol/L (137-145)
== END ==
PROVIDERS: PCP Family Medicine; Referring Provider Family Medicine; Visit Provider Family Medicine
DX: E87.5 Hyperkalemia (principal)
CPT/HCPCS: 36415; 80048

== ENCOUNTER → 2024-07-31 16:16 | Outpatient (CLI) | payer OTHER, SELFPAY ==
[2024-06-27 17:49] VITALS: BMI 31.4
[2024-06-29 23:35] VITALS: PULSE 117; RESP 33; O2SAT 100
[2024-07-31 17:04] LABS: HEMOLYSIS < 15 (0-50)
[2024-07-31 17:06] LABS: Potassium 5.5 mmol/L (3.4-5.1)
== END ==
PROVIDERS: PCP Family Medicine; Referring Provider Family Medicine; Visit Provider Family Medicine
DX: E87.5 Hyperkalemia (principal)
CPT/HCPCS: 36415; 84132

== ENCOUNTER → 2024-08-23 13:42 | Outpatient (CLI) | payer OTHER, SELFPAY ==
[2024-06-27 17:49] VITALS: BMI 31.4
[2024-06-29 23:35] VITALS: PULSE 117; RESP 33; O2SAT 100
[2024-08-23 14:45] LABS: Add Manual Diff / Slide Review NO; Hematocrit 32.5 % (41-53); Hemoglobin 11.5 g/dL (13.5-17.5); Lymphocytes Absolute Auto 800 /uL (1100-4500); Mean Corpuscular HGB Conc 35.3 % (30-36); Mean Corpuscular Hemoglobin 30.3 PG (26-34); Mean Corpuscular Volume 85.8 fL (80-100); Platelet Count 136 X10^3/uL (150-400)
[2024-08-23 14:48] LABS: Appearance Urine UA CLEAR; Bilirubin Urine UA NEGATIVE (NEGATIVE); Color Urine UA YELLOW; Glucose Urine UA NEGATIVE (Negative); Ketones Urine UA TRACE (NEGATIVE); Leukocyte Esterase Urine UA NEGATIVE (NEGATIVE); Nitrite Urine UA NEGATIVE (Negative); Occult Blood Urine UA 3+ (Negative); Protein Urine UA TRACE (Negative); Specific Gravity Urine UA 1.020 (1.000-1.035); Urobilinogen Urine UA 0.2 E.U./dL (0.2); pH Urine UA 5.5 (4.5-8.0)
[2024-08-23 15:14] LABS: Culture Indicated Urine Cult Not Indicated
[2024-08-23 15:21] LABS: HEMOLYSIS < 15 (0-50); Iron 70 ug/dL (49-181)
[2024-08-23 15:27] LABS: Blood Urea Nitrogen 25 mg/dL (9-20); Calcium 9.2 mg/dL (8.4-10.2); Carbon Dioxide 25 mmol/L (22-32); Chloride 109 mmol/L (98-107); Estimated Glomerular Filt Rate 55 mL/min (>60); Glucose 123 mg/dL (70-99); HEMOLYSIS < 15 (0-50); Magnesium 2.2 mg/dL (1.6-2.3); Phosphorous 4.8 mg/dL (2.5-4.5); Sodium 140 mmol/L (137-145); Uric Acid 7.6 mg/dL (3.5-8.5)
[2024-08-23 15:28] LABS: Protein (Total) Urine Random 15 mg/dL (0-12); Protein Creatinine Ratio Urine 0.06 GRAM/24H
[2024-08-23 15:29] LABS: Potassium 5.4 mmol/L (3.4-5.1)
[2024-08-23 15:31] LABS: Percent Iron Saturation 26 % (20-50); Total Iron Binding Capacity 273 ug/dL (261-462); Transferrin 214 mg/dL (206-381)
[2024-08-23 15:44] LABS: Vitamin D 25 Hydroxy (D3) 46.3 ng/mL (30.0-100.0)
== END ==
PROVIDERS: PCP Family Medicine; Referring Provider Internal Medicine Nephrology; Visit Provider Internal Medicine Nephrology
DX: C25.8 Malignant neoplasm of overlapping sites of pancreas (principal); K86.89 Other specified diseases of pancreas; N17.9 Acute kidney failure, unspecified; R91.1 Solitary pulmonary nodule
CPT/HCPCS: 36415; 80048; 81001; 82306; 82570; 83540; 83550; 83735; 83970; 84100; 84156; 84550; 85025

== ENCOUNTER → 2024-09-14 15:10 | Outpatient (CLI) | payer OTHER, SELFPAY ==
[2024-06-27 17:49] VITALS: BMI 31.4
[2024-06-29 23:35] VITALS: PULSE 117; RESP 33; O2SAT 100
[2024-09-14 16:00] LABS: Alanine Aminotransferase 21 IU/L (<50); Albumin 3.9 g/dL (3.5-5.0); Albumin Globulin Ratio 1.5 (1.0-2.8); Alkaline Phosphatase 60 U/L (38-126); Blood Urea Nitrogen 30 mg/dL (9-20); Calcium 8.7 mg/dL (8.4-10.2); Carbon Dioxide 25 mmol/L (22-32); Chloride 108 mmol/L (98-107); Estimated Glomerular Filt Rate 60 mL/min (>60); Globulin 2.6 g/dL (1.7-4.1); Glucose 117 mg/dL (70-99); HEMOLYSIS < 15 (0-50); Magnesium 2.1 mg/dL (1.6-2.3); Phosphorous 5.2 mg/dL (2.5-4.5); Potassium 4.9 mmol/L (3.4-5.1); Sodium 138 mmol/L (137-145); Total Protein 6.5 g/dL (6.3-8.2)
[2024-09-14 16:35] LABS: Add Manual Diff / Slide Review NO; Hematocrit 33.1 % (41-53); Hemoglobin 11.6 g/dL (13.5-17.5); Lymphocytes Absolute Auto 1200 /uL (1100-4500); Mean Corpuscular HGB Conc 35.0 % (30-36); Mean Corpuscular Hemoglobin 29.7 PG (26-34); Mean Corpuscular Volume 84.9 fL (80-100); Platelet Count 148 X10^3/uL (150-400)
== END ==
PROVIDERS: PCP Family Medicine; Referring Provider Family Medicine; Visit Provider Internal Medicine Hematology & Oncology
DX: C25.1 Malignant neoplasm of body of pancreas (principal); E54 Ascorbic acid deficiency; E83.30 Disorder of phosphorus metabolism, unspecified; E83.40 Disorders of magnesium metabolism, unspecified; E83.42 Hypomagnesemia; R94.5 Abnormal results of liver function studies
CPT/HCPCS: 36415; 80053; 80076; 83615; 83735; 84100; 85025

== ENCOUNTER → 2024-10-26 13:50 | Outpatient (CLI) | payer OTHER, SELFPAY ==
[2024-09-18 14:20] VITALS: PULSE 117; RESP 33; O2SAT 100; BMI 31.4
--- NOTE | 2024-10-26 13:54 | DI.RAD.S_ITS ---
PROCEDURE: XR CERVICAL SPINE 4V OR 5V INDICATIONS: BILATERAL SHOULDER PAIN TECHNIQUE: 6 views of the cervical spine acquired. COMPARISON: None. FINDINGS: Bones: No fractures or dislocations to the C6 level. Changes of C5-6 ACDF. No hardware loosening or failure. Moderate spondylosis at C3-4 and C4-5, and the junctional C6-7 level. Uncovertebral and facet arthrosis in the cervical spine results in multilevel neural foraminal narrowing bilaterally. Soft tissues: No prevertebral soft tissue swelling. IMPRESSION: Changes of C5-6 ACDF. Multilevel spondylosis with bony neural foraminal narrowing secondary to degenerative changes. Dictated by: Fritz Mtz M.D. on 10/26/2024 at 14:35 Approved by: Fritz Mtz M.D. on 10/26/2024 at 14:36
--- NOTE | 2024-10-26 13:54 | DI.RAD.S_ITS ---
PROCEDURE: XR SHOULDER RT MIN 2V INDICATIONS: BILATERAL SHOULDER PAIN TECHNIQUE: 3 views of the shoulder were acquired. COMPARISON: [facility], CR, XR SHOULDER LT MIN 2V, 03/18/2023, 9:14. [facility], CR, XR SHOULDER RT MIN 2V, 03/18/2023, 9:12. FINDINGS: Bones: No fractures or dislocations. No suspicious bony lesions. Visualized ribs appear intact. Adequate internal and external rotation. Mild glenohumeral and moderate acromioclavicular joint degenerative arthrosis. Soft tissues: No suspicious soft tissue calcifications. Right port central venous catheter with tip overlying the mid SVC. IMPRESSION: No acute bony abnormality. Dictated by: Fritz tMz M.D. on 10/26/2024 at 14:34 Approved by: Fritz Mtz M.D. on 10/26/2024 at 14:35
--- NOTE | 2024-10-26 13:54 | DI.RAD.S_ITS ---
1PROCEDURE: XR SHOULDER LT MIN 2V INDICATIONS: BILATERAL SHOULDER PAIN TECHNIQUE: 3 views of the shoulder were acquired. COMPARISON: [facility], CR, XR SHOULDER LT MIN 2V, 03/18/2023, 9:14. [facility], CR, XR SHOULDER RT MIN 2V, 03/18/2023, 9:12. FINDINGS: Bones: No fractures or dislocations. No suspicious bony lesions. Visualized ribs appear intact. Mild glenohumeral and moderate acromioclavicular joint degenerative arthrosis. Soft tissues: No suspicious soft tissue calcifications. IMPRESSION: No acute bony abnormality. Dictated by: Fritz Mtz M.D. on 10/26/2024 at 14:36 Approved by: Fritz Mtz M.D. on 10/26/2024 at 14:36
== END ==
PROVIDERS: PCP Family Medicine; Referring Provider Physical Medicine & Rehabilitation; Visit Provider Physical Medicine & Rehabilitation
DX: M48.02 Spinal stenosis, cervical region (principal); M47.812 Spondylosis without myelopathy or radiculopathy, cervical region; M19.011 Primary osteoarthritis, right shoulder; M19.012 Primary osteoarthritis, left shoulder; M25.511 Pain in right shoulder; M25.512 Pain in left shoulder; Z98.1 Arthrodesis status
CPT/HCPCS: 72050; 73030

== ENCOUNTER → 2024-11-07 15:55 | Outpatient (CLI) | payer OTHER, SELFPAY ==
[2024-11-07 15:53] VITALS: PULSE 117; RESP 33; O2SAT 100; BMI 31.4
[2024-11-07 16:24] LABS: Add Manual Diff / Slide Review NO; Hematocrit 36.4 % (41-53); Hemoglobin 13.0 g/dL (13.5-17.5); Lymphocytes Absolute Auto 1500 /uL (1100-4500); Mean Corpuscular HGB Conc 35.7 % (30-36); Mean Corpuscular Hemoglobin 30.8 PG (26-34); Mean Corpuscular Volume 86.2 fL (80-100); Platelet Count 158 X10^3/uL (150-400)
[2024-11-07 18:13] LABS: Alanine Aminotransferase 28 IU/L (<50); Albumin 4.8 g/dL (3.5-5.0); Albumin Globulin Ratio 1.7 (1.0-2.8); Alkaline Phosphatase 76 U/L (38-126); Blood Urea Nitrogen 28 mg/dL (9-20); Calcium 9.5 mg/dL (8.4-10.2); Carbon Dioxide 25 mmol/L (22-32); Chloride 106 mmol/L (98-107); Estimated Glomerular Filt Rate > 60 mL/min (>60); Globulin 2.8 g/dL (1.7-4.1); Glucose 85 mg/dL (70-99); HEMOLYSIS < 15 (0-50); Potassium 5.2 mmol/L (3.4-5.1); Sodium 141 mmol/L (137-145); Total Protein 7.6 g/dL (6.3-8.2)
[2024-11-09 06:38] LABS: Cancer (Carbohydrate) Ag 19-9 1729 U/mL (0-35)
== END ==
PROVIDERS: Internal Medicine Hematology & Oncology; PCP Family Medicine; Referring Provider Specialist; Visit Provider Specialist
DX: C25.1 Malignant neoplasm of body of pancreas (principal); C25.9 Malignant neoplasm of pancreas, unspecified; E83.40 Disorders of magnesium metabolism, unspecified; M54.13 Radiculopathy, cervicothoracic region; M25.511 Pain in right shoulder; M25.512 Pain in left shoulder; G89.29 Other chronic pain
CPT/HCPCS: 20611; 36415; 80053; 85025; 86301; 99213; J3301

== ENCOUNTER → 2024-11-12 07:03 | Outpatient (CLI) | payer OTHER, SELFPAY ==
[2024-11-07 15:53] VITALS: PULSE 117; RESP 33; O2SAT 100; BMI 31.4
--- NOTE | 2024-11-12 07:05 | DI.MRI.S_ITS ---
PROCEDURE: MR AB PANCREATIC/MRCP PROTOCOL INDICATIONS: MALIGNANT NEOPLASM OF THE BODY OF PANCREAS TECHNIQUE: Coronal HASTE through the abdomen, axial 2-D FLASH in- and [id number], and breath-hold T2 FSE with fat saturation through the biliary system and pancreas. Oblique coronal and axial thin-slice HASTE, radial thick-slab HASTE centered on the extrahepatic bile ducts. Intravenous secretin: Not requested. COMPARISON: [facility], MR, MR AB PANCREATIC/MRCP PROTOCOL, 07/14/2023, 19:54. FINDINGS: Image quality: Several sequences are compromised by motion artifact. Gallbladder: No stones, wall thickening, or pericholecystic fluid Biliary ducts: No biliary dilation. Pancreas: Pancreatic body and tail are diminutive and there is intermittent stricture ring and mild dilatation of residual main pancreatic duct. Architectural distortion of ductal and vascular structures in the body of the pancreas attenuates the yaya splenic confluence. Plaque-like material extends from the dorsal tail of the pancreas and encases the splenic artery. Amorphous mass involving the body and tail of the pancreas is redemonstrated best seen on diffusion-weighted imaging. There is partial normalization of the enhancement pattern compared to 07/14/23. OTHER: Lung bases: No pleural effusion or suspicious mass. Liver: No visible arterially enhancing mass although the arterial phase is compromised by motion. Spleen: Splenomegaly at 14.6 cm AP diameter. Slightly improved compared to prior. Adrenal Glands: No adrenal nodules. Kidneys and Ureters: No hydronephrosis. No solid mass. No complex renal cystic lesion which requires follow up. Stomach and Bowel: Stomach and visible bowel loops are within normal limits. Peritoneum: No significant intraperitoneal or retroperitoneal fluid. Extensive intraperitoneal varices but no obvious peritoneal mass. Ventral Wall: No hernia. Abdominal Nodes: No retroperitoneal or mesenteric adenopathy by size criteria. Vessels: Aorta and IVC are appropriate size. The yaya splenic confluence is attenuated. No definite portal thrombus. There is early cavernous transformation of portal vein. Extensive anterior intraperitoneal varicosities. The yaya splenic confluence remains attenuated and there is pre stenotic dilatation of the SMV without visible thrombus. The splenic vein is occluded. Bones: No aggressive osseous abnormality. IMPRESSION: Decreasing size of pancreatic body and tail mass with persistent vascular encasement and venous attenuation. There has been normalization of glandular enhancement compared to pretreatment MRI, but there is persistent restricted diffusion in this region and in tissue extending dorsally. Given lack of uptake on recent PET scan, this is most likely primarily fibrotic change. Correlate with tumor markers. No significant adenopathy or abdominal metastatic disease. Dictated by: Anabelle Rankin M.D. on 11/14/2024 at 8:47 Approved by: Anabelle Rankin M.D. on 11/14/2024 at 9:25
== END ==
PROVIDERS: PCP Family Medicine; Referring Provider Family Medicine
DX: C25.1 Malignant neoplasm of body of pancreas (principal)
CPT/HCPCS: 74183; A9579

== ENCOUNTER → 2024-11-27 15:43 | Outpatient (CLI) | payer OTHER, SELFPAY ==
[2024-11-07 15:53] VITALS: PULSE 117; RESP 33; O2SAT 100; BMI 31.4
[2024-11-27 16:28] LABS: Appearance Urine UA CLEAR; Bilirubin Urine UA NEGATIVE (NEGATIVE); Color Urine UA YELLOW; Glucose Urine UA NEGATIVE (Negative); Ketones Urine UA NEGATIVE (NEGATIVE); Leukocyte Esterase Urine UA NEGATIVE (NEGATIVE); Nitrite Urine UA NEGATIVE (Negative); Occult Blood Urine UA 3+ (Negative); Protein Urine UA TRACE (Negative); Specific Gravity Urine UA 1.025 (1.000-1.035); Urobilinogen Urine UA 0.2 E.U./dL (0.2); pH Urine UA 6.0 (4.5-8.0)
[2024-11-27 16:38] LABS: Culture Indicated Urine Cult Not Indicated
[2024-11-27 16:50] LABS: Blood Urea Nitrogen 27 mg/dL (9-20); Calcium 8.8 mg/dL (8.4-10.2); Carbon Dioxide 27 mmol/L (22-32); Chloride 108 mmol/L (98-107); Estimated Glomerular Filt Rate > 60 mL/min (>60); Glucose 107 mg/dL (70-99); HEMOLYSIS < 15 (0-50); Magnesium 2.3 mg/dL (1.6-2.3); Phosphorous 3.6 mg/dL (2.5-4.5); Potassium 4.8 mmol/L (3.4-5.1); Sodium 139 mmol/L (137-145)
[2024-11-27 17:05] LABS: Vitamin D 25 Hydroxy (D3) 43.8 ng/mL (30.0-100.0)
== END ==
PROVIDERS: PCP Family Medicine; Referring Provider Internal Medicine Hematology & Oncology; Visit Provider Internal Medicine Hematology & Oncology
DX: C25.1 Malignant neoplasm of body of pancreas (principal); C25.9 Malignant neoplasm of pancreas, unspecified; N17.9 Acute kidney failure, unspecified
CPT/HCPCS: 36415; 80048; 81001; 82306; 83735; 83970; 84100

== ENCOUNTER → 2024-12-11 10:47 | Outpatient (CLI) | payer OTHER, SELFPAY ==
[2024-11-07 15:53] VITALS: PULSE 117; RESP 33; O2SAT 100; BMI 31.4
[2024-12-11 14:41] LABS: Add Manual Diff / Slide Review NO; Hematocrit 37.2 % (41-53); Hemoglobin 12.8 g/dL (13.5-17.5); Lymphocytes Absolute Auto 1000 /uL (1100-4500); Mean Corpuscular HGB Conc 34.5 % (30-36); Mean Corpuscular Hemoglobin 31.0 PG (26-34); Mean Corpuscular Volume 89.9 fL (80-100); Platelet Count 140 X10^3/uL (150-400)
[2024-12-11 14:47] LABS: Uric Acid 6.9 mg/dL (3.5-8.5)
[2024-12-12 06:36] LABS: Cancer (Carbohydrate) Ag 19-9 4309 U/mL (0-35)
== END ==
PROVIDERS: Internal Medicine Nephrology; PCP Family Medicine; Referring Provider Internal Medicine Hematology & Oncology; Visit Provider Internal Medicine Hematology & Oncology
DX: C25.1 Malignant neoplasm of body of pancreas (principal); C25.9 Malignant neoplasm of pancreas, unspecified; E54 Ascorbic acid deficiency; E83.40 Disorders of magnesium metabolism, unspecified
CPT/HCPCS: 84550; 85025; 86301

== ENCOUNTER 2025-01-15 16:41 | Emergency (ER) | payer OTHER, SELFPAY ==
[2024-11-07 15:53] VITALS: PULSE 117; RESP 33; O2SAT 100; BMI 31.4
[2025-01-15 17:21] VITALS: BP 172/93; PULSE 55; RESP 16; TEMP 36.4; O2SAT 98; BMI 28.8
--- NOTE | 2025-01-15 17:31 | DI.CT.S_ITS ---
PROCEDURE: CT ABDOMEN PELVIS W CON INDICATIONS: nausea/diarrhea, hx pancreatic cancer with recurrence, abdpn TECHNIQUE: After the administration of intravenous contrast, axial sections acquired from the lung bases to the pubic symphysis. Coronal and sagittal reformats were performed. For radiation dose reduction, the following was used: automated exposure control, adjustment of mA and/or kV according to patient size. COMPARISON: [facility], CT, CT CHEST ABD PEL W CON, 06/03/2024, 14:14. [facility], MR, MR AB PANCREATIC/MRCP PROTOCOL, 11/12/2024, 7:26. [facility], CT, CT ABDOMEN PELVIS W CON, 12/09/2023, 20:48. FINDINGS: Image quality: Diagnostic. Lower Chest: No significant findings. ABDOMEN: Liver: No solid mass. Gallbladder: No radiopaque gallstones or wall thickening. Biliary ducts: No biliary dilation. Pancreas: No ductal dilation. Heterogeneous appearance predominantly of the pancreatic body as identified on prior exam. Spleen: Size is within normal limits. Adrenal Glands: No adrenal nodules. Kidneys and Ureters: No hydronephrosis. No solid mass. No complex renal cystic lesion which requires follow up. Stomach and Bowel: Colonic diverticular present particularly within the sigmoid colon. Mild appearance of sigmoid thickening. Questionable minimal pericolonic inflammatory change. Peritoneum: No abnormal intraperitoneal fluid. No free air. Ventral Wall: No significant ventral hernia. Abdominal Nodes: No retroperitoneal or mesenteric adenopathy by size criteria. Vessels: Aorta and inferior vena cava are normal in size. PELVIS: Pelvic Organs: Unremarkable. Bladder: No bladder wall thickening, accounting for underdistention. Pelvic Nodes: No enlarged lymph nodes. Miscellaneous: No inguinal hernias are seen. Bones: No aggressive osseous abnormality. IMPRESSION: Persistent appearance of heterogeneous attenuation within the pancreas as previously identified concerning for malignancy. Sigmoid diverticula with appearance of thickening and very minimal pericolonic inflammation suggestive of early developing colitis secondary to diverticulitis. Dictated by: Rola Mckeon M.D. on 01/15/2025 at 19:21 Approved by: Rola Mckeon M.D. on 01/15/2025 at 19:23
--- NOTE | 2025-01-15 17:32 | ED.ABDPAIN ---
HPI - Abdominal Pain General Chief Complaint: Abdominal Pain Stated Complaint: PC ref, for CT scan? GI blockage Time Seen by Provider: 01/15/25 17:30 Source: patient, RN notes reviewed and old records reviewed Mode of arrival: Ambulatory Limitations: no limitations History of Present Illness HPI narrative: 60-year-old male history of pancreatic cancer treated with chemotherapy and gamma knife patient states he has been found to have a reoccurrence he follows with Oncology Dr. Espinoza in [place], [place]. Patient states for the past week he has had a significant decrease in his appetite, weight loss, he has had nausea but no vomiting but felt like he is going to vomit. Patient states he has had frequent diarrhea, denies black or bloody stools. He has had abdominal pain throughout the week although he states it is better today. He denies fevers or chills. No chest pain or shortness of breath. No urinary symptoms. Patient is concerned that he might be developing a blockage or have some other changes from recurrence of his pancreatic cancer. Patient states he had a PET scan 2 months ago which showed new changes he has not had any imaging since. Patient states he takes medication for chronic neck pain, hypertension. States he had adverse reaction to Haldol. Former smoker, occasional alcohol, uses marijuana denies any other recreational drugs. Dr. Campo is his primary care physician. Related Data Home Medications ?Medication ?Instructions ?Recorded ?Confirmed alprazolam 1 mg tablet 2 mg PO BEDTIME 06/27/24 11/07/24 gabapentin 300 mg capsule 600 mg PO BEDTIME 06/27/24 11/07/24 mirtazapine 7.5 mg tablet 7.5 mg PO BEDTIME 06/27/24 11/07/24 zyrahl-qtqcymxl-xhcsrso 2 cap PO TID 07/18/24 11/07/24 36,000-114,000-180,000 unit capsule,delay rel sqxrsl-oqjyogby-ydffhqp 4 cap PO TID 07/18/24 11/07/24 36,000-114,000-180,000 unit capsule,delay rel (Creon) multivitamin 1 tab PO DAILY 07/18/24 11/07/24 nifedipine 60 mg tablet,extended 60 mg PO BID 11/07/24 11/07/24 release Previous Rx's ?Medication ?Instructions ?Recorded Disabled Parking Permit See Rx Instructions .Route 09/09/23 .COMPLEX #1 unit carvedilol 25 mg tablet 50 mg (2 x 25 mg) PO BID #90 tabs 07/27/24 mening vac A,C,Y,W135,tet (PF) 10 0.5 ml IM ONCE #0.5 mL 10/17/24 mcg/0.5 mL IM solution (MenQuadfi (PF)) meningococcal B vac,4-cmp 50 0.5 ml IM ONCE #0.5 mL 10/17/24 mcg-50 mcg-50 mcg-25 mcg/0.5mL IM syringe (Bexsero) amoxicillin 875 mg-potassium 1 tab PO BID #20 tabs 01/15/25 clavulanate 125 mg tablet Allergies Allergy/AdvReac Type Severity Reaction Status Date / Time haloperidol (From Haldol) AdvReac Severe Agitated Verified 01/15/25 17:26 egg AdvReac Intermediate Gastrointestinal Verified 01/15/25 17:26 Upset Review of Systems Review of Systems ROS Unobtainable: All systems reviewed & are unremarkable except as noted in HPI and below Patient History Medical History Bilateral shoulder pain Radiculopathy, cervicothoracic region Neoplasm related pain Malignant neoplasm of pancreas GERD (gastroesophageal reflux disease) Bilateral hip pain Greater trochanteric bursitis of both hips Right hip pain Left hip pain Arthritis of left acromioclavicular joint Impingement of right shoulder Social History marital status: household members: spouse lives independently: Yes occupational status: employed Smoking Status: Former smoker alcohol intake: never substance use type: marijuana Smoking Status: Former smoker tobacco type: cigarettes alcohol intake frequency: 0-2 drinks per day Exam Narrative Exam Narrative: GENERAL: Alert and oriented x three, well-appearing male in mild distress HEENT: Head normocephalic, atraumatic, EOMI, pupils reactive, face symmetric, moist mucous membranes NECK: Supple, full range of motion CARDIOVASCULAR: Regular rate and rhythm without murmurs, rubs or gallops. RESPIRATORY: Breath sounds equal bilaterally, no wheezes rales or rhonchi. ABDOMEN: Soft, nontender. Nondistended. Normoactive bowel sounds all 4 quadrants. No guarding or rebound, rigidity, no mass : No CVA tenderness EXTREMITIES: Normal range of motion, no clubbing or edema. Neurovascularly intact NEUROLOGICAL: Cranial nerves II through XII grossly intact. Moving all extremities SKIN: Warm, dry, no petechiae, no rashes or lesions. Initial Vital Signs Initial Vital Signs: Vital Signs Temperature 97.5 F L 01/15/25 17:21 Pulse Rate 55 L 01/15/25 17:21 Respiratory Rate 16 01/15/25 17:21 Blood Pressure 172/93 H 01/15/25 17:21 Pulse Oximetry 98 01/15/25 17:21 Oxygen Delivery Method Room Air 01/15/25 17:21 Course Orders Ordered: ED Orders 01/15/25 17:31 CT abdomen pelvis w con Stat 01/15/25 17:40 Complete Blood Count AUTO DIFF Stat Comprehensive Metabolic Panel Stat Lipase Stat Discontinued Medications Amoxicillin/Clavulanate Potassium (Amoxicillin/Clav 875/125 Mg) 1 tab PO NOW ONE Stop: 01/15/25 20:04 Last Admin: 01/15/25 20:22 Dose: 1 tab Documented By: ROXANNE Sodium Chloride (Normal Saline 0.9%) 1,000 mls @ 1,000 mls/hr IV BOLUS ONE Stop: 01/15/25 18:30 Last Infusion: 01/15/25 20:23 Dose: Infused Documented By: Admin: 01/15/25 18:56 Dose: 1,000 mls/hr Documented By: Vital Signs Vital signs: Vital Signs - 8 hr 01/15/25 17:21 01/15/25 20:22 Temperature 97.5 F L Pulse Rate 55 L 67 Respiratory Rate 16 18 Blood Pressure 172/93 H 184/83 H Pulse Oximetry 98 96 Oxygen Delivery Method Room Air Room Air MDM - Abdominal Pain Lab Data 01/15/25 17:40 01/15/25 17:40 Labs: Lab Results 01/15/25 Range/Units 17:40 WBC 3.6 L (4.5-11.0) X10^3/uL RBC 3.80 L (4.5-5.9) X10^6/uL Hgb 12.0 L (13.5-17.5) g/dL Hct 34.0 L (41-53) % MCV 89.4 (80-100) fL MCH 31.4 (26-34) PG MCHC 35.2 (30-36) % RDW 14.3 (11.6-14.8) % Plt Count 106 L (150-400) X10^3/uL Neut % (Auto) 87.2 H (50-75) % Lymph % (Auto) 11.1 L (25-40) % Jackson % (Auto) 1.4 L (3-14) % Eos % (Auto) 0.2 L (2-4) % Baso % (Auto) 0.1 (0-2) % Neut # (Auto) 3200 (8391-7747) /uL Lymph # (Auto) 400 L (9730-4106) /uL Jackson # (Auto) 100 (0-900) /uL Eos # (Auto) 0 (0-450) /uL Baso # (Auto) 0 (0-100) /uL Sodium 140 (137-145) mmol/L Potassium 4.6 (3.4-5.1) mmol/L Chloride 107 (98-107) mmol/L Carbon Dioxide 23 (22-32) mmol/L BUN 19 (9-20) mg/dL Creatinine 0.91 (0.66-1.25) mg/dL Estimated GFR > 60 (>60) mL/min BUN/Creatinine Ratio 20.9 (6-22) Glucose 184 H (70-99) mg/dL Calcium 8.5 (8.4-10.2) mg/dL Total Bilirubin 0.3 (0.2-1.3) mg/dL AST 36 (17-59) IU/L ALT 35 (<50) IU/L Alkaline Phosphatase 66 (38-126) U/L Total Protein 7.4 (6.3-8.2) g/dL Albumin 4.3 (3.5-5.0) g/dL Globulin 3.1 (1.7-4.1) g/dL Albumin/Globulin Ratio 1.4 (1.0-2.8) Lipase 220 (23-300) U/L [facility] Narrative Medical decision making narrative: Labs show white count of 3.6 hemoglobin of 12 platelets of 106 patient has been intermittently low with both in the past. Hemoglobin appears consistent with priors from November. Chemistries are appropriate BUN and creatinine normal glucose is [address] abdomen and pelvis shows persistent appearance heterogeneous attenuation with the pancreas as previously identified concerning for malignancy. Sigmoid diverticula with the appearance of thickening very minimal pericolonic inflammation still can not early developing colitis secondary to diverticulitis Patient received fluid, Augmentin here in the department. Reviewed patient's findings, he notes he has had diverticulitis in the past responded to antibiotics. He feels comfortable discharging home on oral antibiotics with return precautions. He defers anything for pain. All questions answered. Discharge Plan Departure Patient Disposition: Home Clinical Impression: Diverticulitis Instructions: DI for Diverticulitis Activity Restrictions/Additional Instructions: Your imaging today does show persistent changes to the pancreas has previously identified on other imaging there was also some changes at the sigmoid colon consistent with early diverticulitis/colitis. I would recommend taking an oral antibiotic for this. Prescription was sent to [facility] in [place]. Please return if you develop fevers, worsening abdominal back or flank pain, any persistent vomiting, new black or bloody stools or other new or concerning changes. Prescriptions: New amoxicillin-pot clavulanate 875-125 mg tablet 1 tab PO BID Qty: 20 0RF No Action MenQuadfi (PF) 10 mcg/0.5 mL solution 0.5 ml IM ONCE Qty: 0.5 0RF Rx Instructions: as a single dose Bexsero 50-50-50-25 mcg/0.5 mL syringe 0.5 ml IM ONCE Qty: 0.5 1RF Disabled Parking Permit See Rx Instructions .ROUTE .COMPLEX Qty: 1 0RF Rx Instructions: I find this patient to be medically disabled and qualify for disabled parking as indicated and signed on the accompanying disabled parking application for individuals. multivitamin Tablet 1 tab PO DAILY rcfboz-afztzwkt-wtfkwdy 36,000-114,000- 180,000 unit capsule,delayed release(DR/EC) 2 cap PO TID Rx Instructions: administer with snacks Creon 36,000-114,000- 180,000 unit capsule,delayed release(DR/EC) 4 cap PO TID carvedilol 25 mg tablet 50 mg PO BID Qty: 90 3RF Rx Instructions: must administer with a meal/food alprazolam 1 mg tablet 2 mg PO BEDTIME mirtazapine 7.5 mg tablet 7.5 mg PO BEDTIME gabapentin 300 mg capsule 600 mg PO BEDTIME nifedipine 60 mg tablet extended release 60 mg PO BID Referrals: Joana Zapata MD [Primary Care Provider, Family Practice] Stand Alone Forms: Patient Portal/API ED Sign-out Cosign ED Attending Cosignature Attestation: I was immediately available in the department for consultation.
[2025-01-15 17:58] LABS: Add Manual Diff / Slide Review NO; Hematocrit 34.0 % (41-53); Hemoglobin 12.0 g/dL (13.5-17.5); Lymphocytes Absolute Auto 400 /uL (1100-4500); Mean Corpuscular HGB Conc 35.2 % (30-36); Mean Corpuscular Hemoglobin 31.4 PG (26-34); Mean Corpuscular Volume 89.4 fL (80-100); Platelet Count 106 X10^3/uL (150-400)
--- NOTE | 2025-01-15 18:02 | PC.NURSE ---
Patient found laying on the floor outside triage. When asked why he was on the floor he stated I told her I needed to recline because my stomach hurts and it didn't recline so I laid on the floor. Asked patient if he could get up and move to a gurney, patient iron from the floor without assistance and moved onto the hallway gurney. Provider aware that patient was found on the floor and was able to move self onto gurney without assistance.
[2025-01-15 18:17] LABS: Alanine Aminotransferase 35 IU/L (<50); Albumin 4.3 g/dL (3.5-5.0); Albumin Globulin Ratio 1.4 (1.0-2.8); Alkaline Phosphatase 66 U/L (38-126); Blood Urea Nitrogen 19 mg/dL (9-20); Calcium 8.5 mg/dL (8.4-10.2); Carbon Dioxide 23 mmol/L (22-32); Chloride 107 mmol/L (98-107); Estimated Glomerular Filt Rate > 60 mL/min (>60); Globulin 3.1 g/dL (1.7-4.1); Glucose 184 mg/dL (70-99); HEMOLYSIS < 15 (0-50); Lipase 220 U/L (23-300); Potassium 4.6 mmol/L (3.4-5.1); Sodium 140 mmol/L (137-145); Total Protein 7.4 g/dL (6.3-8.2)
[2025-01-15] MEDS: SODIUM CHLORIDE 0.9% 1,000 ML 1000 ML IV (18:56)
[2025-01-15 20:22] VITALS: BP 184/83; PULSE 67; RESP 18; O2SAT 96
[2025-01-15] MEDS: AMOXICILLIN/CLAV 875/125 MG 1 TAB PO (20:22)
== END 2025-01-15 20:30 | disposition home or self-care (01) ==
PROVIDERS: Emergency Provider Emergency Medicine; PCP Family Medicine
DX: K57.32 Diverticulitis of large intestine without perforation or abscess without bleeding (principal); C25.9 Malignant neoplasm of pancreas, unspecified
CPT/HCPCS: 74177; 80053; 83690; 85025; 99284; J7030; Q9967

== ENCOUNTER 2025-02-03 07:13 | Emergency (ER) | payer OTHER, SELFPAY ==
--- OUTSIDE RECORDS SUMMARY | 2024-09-20 14:00 | XMS_ITS | Encounter Summary ---
Author Organization [facility] Address [address] [place] [address] Care Team Providers Care Electronic Operator Name Role Phone Pcp, None Selected Primary Care Provider Unavail able Reason for Visit * Reason Comments Follow-up Encounter Details Date Type Department Care Team (Late st Contact Info) Description 09/20/2024 3:00 PM PDT Office Visit [facility] Nephrology [place] [address], [address] [place], [place] [id number] Fabio Fernandez MD [address] [place], [place] [id number] AZEEM (acute kidney injury) (Primary Dx) Social History Tobacco Use Types Packs/Day Years Used Date Smoking Tobacco: Former Cigarettes 2 24 1 - 02/15/1999 Passive Smoke Exposure: Past Smokeless Tobacco: Never Comments:Very difficult to q uit Passive Exposure Comments:8yrs Alcohol Use Standard Drinks/Week Comments Not Currently 0 (1 standard drink = 0.6 oz pure alcohol) used to have 3-10 drinks daily - last drink in 2014 Sex and Gender Information Value Date Recorded Sex Assigned at Male 07/19/2023 2:47 PM PDT Legal Sex Male 1:21 PM PST Gender Identity Male 07/19/2023 2:47 PM PDT Sexual Orientation Straight 07/19/2023 2: 50 PM PDT documented as of this encounter Last Filed Vital Signs Vital Sign Reading Time Taken Comments Blood Pressure 153/102 09/20/2024 3:39 PM PDT Pulse 68 09/20/2024 3:07 PM PDT Temperature - - Respiratory Rate - - Oxygen Saturation 100% 09/20/2024 3:07 PM PDT Inhaled Oxygen Concentration - - Weight - - Height 185.4 cm (6' 0.99) 09/20/2024 3:07 PM PD T Body Mass Index - - documented in this encounter Progress Notes * Fabio Fernandez MD - 09/20/2024 3:00 PM PDT BP goal 130/80 or less RTC 2 months Kidney function is doing better No new changes for now * Fabio Fernandez MD - 09/20/2024 3:00 PM PDT Subjective Patient ID: Asher Hernández is a 59 y.o. male that had concerns including Follow-up. 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 This is being managed by his outside heme-onc team and this is his second visit with [place]. His presents labs from September 14 showing an improvement in his serum creatinine down to 1.36 and a potassium of 4.9. Labs from [place] from August 23 showed a creatinine of 1.46 with aK of 5.4 patient's energy level is very good unfortunately is hypertensive and forgot his blood pressure meds today which include Coreg 25 mg 2 times a day and nifedipine 60 mg daily he is voiding well no rashes no edema no headaches blurred vision syncope or presyncope. He is to roller picker his meningococcal vaccine at local pharmacy. Past Medical History: Diagnosis Date Anxiety Arthritis GERD (gastroesophageal reflux disease) 2014 Hip pain HL (hearing loss) 1999 Hyperlipidemia Lung cancer (CMS/HCC) Prostate enlargement Tinnitus 2004 Past Surgical History: Procedure Laterality Date ANTERIOR CERVICAL DISCECTOMY W/ FUSION 2016 [place] EGD INTRMURAL NEEDLE ASPIR/BIOP ALTERED ANATOMY N/A 07/16/2023 Procedure: UPPER GASTROINTESTINAL ENDOSCOPY OF ESOPHAGUS, STOMACH, DUODENUM AND JEJUNUM WITH ENDOSCOPIC ULTRASOUND GUIDED INTRAMURAL FINE NEEDLE BIOPSY; Surgeon: Matthias Simon MD; Location: [facility] GI; Service: Gastroenterology [place] INSJ TUNNELED CTR VAD W/SUBQ PORT AGE 5 YR/> N/A 08/10/2023 Procedure: INSERTION OF TUNNELED CENTRALLY INSERTED CENTRAL VENOUS CATHETER WITH SUBCUTANEOUS PORT;Surgeon: Pavan Neville MD; Location: [facility] OR; Service: General Family History Problem Relation Age of Onset Cancer Father Prostate cancer Father Social History Socioeconomic History Marital status: Tobacco Use Smoking status: Former Current packs/day: 0.00 Average packs/day: 2.0 packs/day for 24.0 years (48.0 ttl pk-yrs) Types: Cigarettes Start date: 11/30/1975 Quit date: 02/15/1999 Years since quittin.6 Passive exposure: Past (8yrs) Smokeless tobacco: Never Tobacco comments: Very difficult to quit Vaping Use Vaping status: Every Day Substances: THC Devices: Pre-filled or refillable cartridge Substance and Sexual Activity Alcohol use: Not Currently Comment: used to have 3-10 drinks daily - last drink in 2014 Drug use: Yes Frequency: 7.0 times per week Types: Marijuana Comment: vape/smoke/edibles Sexual activity: Defer Allergies Allergen Reactions Haldol [Haloperidol] Shortness of breath Violent physical reaction Egg GI intolerance Current Medication List Sig carvediloL (COREG) 25 mg tablet Take 1 tablet (25 mg total) by mouth 2 (two) times a day with meals gabapentin (NEURONTIN) 300 mg capsule Take 1 capsule (300 mg total) by mouth 3 (three) times a day metoclopramide (REGLAN) 10 mg tablet Take 1 tablet (10 mg total) by mouth 4 times daily mirtazapine (REMERON) 7.5 mg tablet Take 1 tablet (7.5 mg total) by mouth daily NIFEdipine CC (ADALAT CC) 60 mg 24 hr tablet Take 1 tablet (60 mg total) by mouth daily ondansetron (ZOFRAN) 4 mg tablet Take 1 tablet (4 mg total) by mouth every 8 (eight) hours as needed for nausea or vomiting ALPRAZolam (XANAX) 1 mg tablet Take 2 tablets (2 mg total) by mouth nightly b complex vitamins tablet Take 1 tablet by mouth daily baclofen (LIORESAL) 5 mg tablet Take 2 tablets (10 mg total) by mouth as needed for muscle spasms cetirizine (ZyrTEC) 10 mg tablet Take 0.5 tablets (5 mg total) by mouth daily cholecalciferol (VITAMIN D3) 25 mcg (1,000 unit) oral tablet Take 1 tablet (1,000 Units total) by mouth daily droNABinol (MARINOL) 5 mg capsule Take 1 capsule (5 mg total) by mouth 2 (two) times a day before meals fluorouracil (5-FU) chemo infusion - for home use Infuse 5,540 mg into a venous catheter Over 46 hr fluorouracil (5-FU) chemo infusion - for home use Infuse 4,440 mg into a venous catheter Over 46 hr fluorouracil (5-FU) chemo infusion - for home use Infuse 4,440 mg into a venous catheter Over 46 hr fluorouracil (5-FU) chemo infusion - for home use Infuse 4,440 mg into a venous catheter Over 46 hr fluorouracil (5-FU) chemo infusion - for home use Infuse 4,440 mg into a venous catheter Over 46 hr HYDROmorphone (DILAUDID) 4 mg tablet Take 0.5-1 tablets (2-4 mg total) by mouth every 4 (four) hours as needed for severe pain (7-10) for up to 10 days As needed for breakthrough pain due to pancreatic cancer Kristalose 10 gram packet MIX 2 PACKETS WITH LIQUID AND DRINK TWICE DAILY NEEDED FOR CONSTIPATION LORazepam (ATIVAN) 1 mg tablet Take 1 tablet (1 mg total) by mouth every 6 (six) hours as needed for anxiety for up to 60 doses methadone (DOLOPHINE) 10 mg tablet Take 1 tablet (10 mg total) by mouth 3 (three) times a day for 14 days Scheduled for pancreatic cancer naloxone (NARCAN) 4 mg/actuation nasal spray ADMINSITER 1 SPRAY INTO ONE NOSTRIL ONCE FOR 1 DOSE ondansetron ODT (ZOFRAN-ODT) 8 mg disintegrating tablet Take 1 tablet (8 mg total) by mouth every 8(eight) hours as needed for nausea or vomiting pancrelipase, Gvd-Vsng-Cezv, (Creon) 24,000-76,000 -120,000 unit capsule Take 2 capsules by mouth 4(four) times a day as needed for snacks (take 2 capsules with each meal, and 1 with each snack) pantoprazole (PROTONIX) 20 mg EC tablet Take 1 tablet (20 mg total) by mouth daily prochlorperazine (COMPAZINE) 10 mg tablet Take 1 tablet (10 mg total) by mouth every 6 (six) hours as needed for nausea promethazine (PHENERGAN) 25 mg tablet Take 1 tablet (25 mg total) by mouth every 6 (six) hours as needed for nausea or vomiting tamsulosin (FLOMAX) 0.4 mg capsule Take 1 capsule (0.4 mg total) by mouth 2 (two) times a day Review of Systems Constitutional: Negative. HENT: Negative. Eyes: Negative. Respiratory: Negative. Cardiovascular: Negative. Gastrointestinal: Negative. Endocrine: Negative. Genitourinary: Negative. Musculoskeletal: Negative. Allergic/Immunologic: Negative. Neurological: Negative. Hematological: Negative. Psychiatric/Behavioral: Negative. Objective BP (!) 153/102 (BP Location: Right arm, Patient Position: Sitting) Pulse 68 Ht 1.854 m SpO2 100% BMI 28.50 kg/m?? Physical Exam Constitutional: Appearance: Normal appearance. HENT: Head: Normocephalic and atraumatic. Cardiovascular: Rate and Rhythm: Normal rate and regular rhythm. Pulmonary: Effort: Pulmonary effort is normal. Breath sounds: Normal breath sounds. Abdominal: General: Abdomen is flat. Palpations: Abdomen is soft. Musculoskeletal: General: Normal range of motion. Cervical back: Normal range of motion. Skin: General: Skin is warm and dry. Neurological: General: No focal deficit present. Mental Status: He is alert and oriented to person, place, and time. Psychiatric: Mood and Affect: Mood normal. Behavior: Behavior normal. No results found for this or any previous visit (from the past 4 weeks). 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 His blood pressure is 167/100 but this is in the context of him not taking his 2 blood pressure meds well not titrate further we will however keep a low threshold for increasing his nifedipine further if needed with goal blood pressure 130/80 or less Given his significant AZEEM lesion from the TTP-HUS he may have lifelong hypertension which remains to be seen Protein creatinine ratio has improved much and on August 23 labs it was actually 0.06. His hemoglobin is 11.5 not requiring any erythropoietin stimulating agents. Fortunately his potassium is dropped further from 5.4-4.9 with good Phos mag and calcium parameters. Overall surprisingly his renal function is doing much better during the course of his Soliris infusions and his volume status is also excellent. Little left to add acutely from a renal perspective and he knows to avoid Motrin Advil Celebrex Vioxx Aleve Of note renal ultrasound showed right 11.4 left 11.8 no masses stones or hydro; and this was a July 09 study. Electronically signed by Fabio Fernandez MD 09/20/2024 3:42 PM documented in this encounter Miscellaneous Notes * Addendum Note - Phoebe Chacko - 09/20/2024 3:00 PM PDTAddended by: PHOEBE CHACKO on: 12/12/2024 05:02 AM Modules accepted: Orders documented in this encounter Plan of Treatment Scheduled Orders Name Type Priority Associated Diagnoses Orde r Schedule Protein creatinine ratio, urine Lab Routine AZEEM (acute kidney injury) Expected: 11/14/2024, Expires: 12/21/2025 Basic metabolic panel Lab Routine AZEEM (acute kidney injury) Expected: 11/14/2024, Expires: 12/21/2025 Magnesium Lab Routine AZEEM (acute kidney injury) Expected: 11/14/2024, Expires: 12/21/2025 PTH, intact Lab Routine AZEEM (acute kidney injury) Expected: 11/14/2024, Expires: 12/21/2025 Phosphorus Lab Routine AZEEM (acute kidney injury) Expected: 11/14/2024, Expires: 12/21/2025 Urinalysis, reflex Microscopic and Culture if indicated Lab Routine AZEEM (acute kidney injury) Expected: 11/14/2024, Expires: 09/20/2025 Vitamin D, 25-Hydroxy Lab Routine AZEEM (acute kidney injury) Expected: 11/14/2024, Expires: 09/20/2025 documented as of this encounter Results * (ABNORMAL) Complete blood count with diff (12/11/2024) Blood Venous blood / Unknown us Fabio Fernandez MD LAB BLOOD ORDERABLES Final Result [facility] * Uric acid (12/11/2024) Blood Venous blood / Unknown us Fabio Fernandez MD LAB BLOOD ORDERABLES Final Result documented in this encounter Visit Diagnoses Diagnosis AZEEM (acute kidney injury)- Primary documented in this encounter Care Teams Electronic Operator Relationship Specialty Start Date End Date Pcp, None Selected PCP - General 06/01/24 documented as of this encounter
[2024-11-07 15:53] VITALS: PULSE 117; RESP 33; O2SAT 100; BMI 31.4
[2025-02-03] VITALS (19 sets, daily range): BP systolic 103–138; BP diastolic 66–94; PULSE 71–87; RESP 16; TEMP 36.6; O2SAT 97–100; BMI 29.1
--- NOTE | 2025-02-03 07:38 | ED.ABDPAIN ---
HPI - Abdominal Pain General Chief Complaint: Abdominal Pain Stated Complaint: Diverticulitis worsening, vomiting, heartburn Time Seen by Provider: 02/03/25 07:19 History of Present Illness HPI narrative: Patient is a 60-year-old man who presents with progressive worsening of nausea, vomiting, heartburn, abdominal pain, diarrhea x 5 days. Past medical history significant for pancreatic cancer status post chemo therapy, noninvasive radiation therapy (gamma knife) who is being managed by Dr. Espinoza, oncologist in [place], [place]. Patient states that he had initial symptoms of abdominal pain approximately 2 years ago where he was initially diagnosed with diverticulitis that resolved with antibiotic treatment. He presented 01/15/2025 with decreased appetite, weight loss, nausea but no vomiting and was discharge on a 10 day course of Augmentin. He stated that he completed this antibiotic regimen however his abdominal pain did not fully resolve. When he talked to his oncologist on Wednesday about his symptoms, he was given an additional 7 day course of Augmentin. Patient states that he has been taking medications for this, however continued to have progressively worsening nausea, vomiting, heartburn, abdominal pain, full liquid diarrhea, anorexia, which prompted him to present to the ER today. Last dose of targeted low-dose radiation therapy yesterday. He reports that these symptoms are not associated with his radiation therapy. He denies any recent travel to include international travel. No friends or family member with similar symptoms. Denies any fevers, chills. No hematuria, dysuria, frequency, urgency. No chest pain, dyspnea, diaphoresis. Related Data Home Medications ?Medication ?Instructions ?Recorded ?Confirmed alprazolam 1 mg tablet 2 mg PO BEDTIME 06/27/24 01/16/25 gabapentin 300 mg capsule 600 mg PO BEDTIME 06/27/24 01/16/25 mirtazapine 7.5 mg tablet 7.5 mg PO BEDTIME 06/27/24 01/16/25 klydpq-uwhzpsrn-jqmgwfw 2 cap PO TID 07/18/24 01/16/25 36,000-114,000-180,000 unit capsule,delay rel dzetlc-lzlnojrn-gwrzpsf 4 cap PO TID 07/18/24 01/16/25 36,000-114,000-180,000 unit capsule,delay rel (Creon) multivitamin 1 tab PO DAILY 06/03/25 12/02/25 nifedipine 60 mg tablet,extended 60 mg PO BID 11/07/24 01/16/25 release dexamethasone 4 mg tablet mg PO 01/16/25 01/16/25 Previous Rx's ?Medication ?Instructions ?Recorded Disabled Parking Permit See Rx Instructions .Route 09/09/23 .COMPLEX #1 unit carvedilol 25 mg tablet 50 mg (2 x 25 mg) PO BID #90 tabs 07/27/24 mening vac A,C,Y,W135,tet (PF) 10 0.5 ml IM ONCE #0.5 mL 10/17/24 mcg/0.5 mL IM solution (MenQuadfi (PF)) meningococcal B vac,4-cmp 50 0.5 ml IM ONCE #0.5 mL 10/17/24 mcg-50 mcg-50 mcg-25 mcg/0.5mL IM syringe (Bexsero) amoxicillin 875 mg-potassium 1 tab PO BID #20 tabs 01/15/25 clavulanate 125 mg tablet Allergies Allergy/AdvReac Type Severity Reaction Status Date / Time haloperidol (From Haldol) AdvReac Severe Agitated Verified 01/15/25 17:26 egg AdvReac Intermediate Gastrointestinal Verified 01/15/25 17:26 Upset Review of Systems Review of Systems Narrative: See HPI. Patient History Medical History Bilateral shoulder pain Radiculopathy, cervicothoracic region Neoplasm related pain Malignant neoplasm of pancreas GERD (gastroesophageal reflux disease) Bilateral hip pain Greater trochanteric bursitis of both hips Right hip pain Left hip pain Arthritis of left acromioclavicular joint Impingement of right shoulder Social History marital status: household members: spouse lives independently: Yes occupational status: employed alcohol intake: never substance use type: marijuana tobacco type: cigarettes alcohol intake frequency: 0-2 drinks per day Exam Narrative Exam Narrative: Vitals: Vitals reviewed, all within normal range, does not meet SIRS criteria. Gen: Well-developed, well-nourished, in no acute distress. Mouth: Dry mucous membranes Eyes: No scleral icterus, EOMI Cards: Regular rate, no murmurs, rubs, gallops. 2+ left radial pulse. Pulm: Clear to auscultation in upper lung [place]. Abd: Soft, nondistended, tender to moderate palpation in left lower quadrant, not peritonitic. Ext: No peripheral edema in bilateral lower extremities. Neuro: A&O x 3, grossly intact Psych: Appropriate Initial Vital Signs Initial Vital Signs: Vital Signs Pulse Rate 87 02/03/25 07:22 Pulse Oximetry 97 02/03/25 07:22 Course Course Course Narrative: 0726 Patient evaluated, hemodynamically normal/stable. IV, analgesia, labs, imaging ordered. Orders Ordered: Discontinued Medications Heparin Sodium (Porcine) (Heparin 500 Unit/5 Ml Port Flush) 500 unit IV PRN PRN PRN Reason: Flush Last Admin: 02/03/25 14:49 Dose: 500 unit Documented By: ALEA Hydromorphone HCl (Hydromorphone Hcl 0.5 Mg/0.5 Ml Syringe) 0.5 mg IV NOW ONE Stop: 02/03/25 07:27 Last Admin: 02/03/25 08:12 Dose: 0.5 mg Documented By: ALEA Hydromorphone HCl (Hydromorphone Hcl 0.5 Mg/0.5 Ml Syringe) 0.5 mg IV NOW ONE Stop: 02/03/25 10:03 Last Admin: 02/03/25 10:08 Dose: 0.5 mg Documented By: ALEA Sodium Chloride (Normal Saline 0.45%) 1,000 mls @ 1,000 mls/hr IV BOLUS ONE Stop: 02/03/25 10:24 Last Admin: 02/03/25 09:42 Dose: Not Given Documented By: RODRIGO Sodium Chloride (Normal Saline 0.9%) 1,000 mls @ 1,000 mls/hr IV BOLUS ONE Stop: 02/03/25 10:36 Last Infusion: 02/03/25 10:47 Dose: Infused Documented By: Admin: 02/03/25 09:38 Dose: 1,000 mls/hr Documented By: ALEA Ondansetron HCl (Ondansetron 4 Mg/2 Ml Inj) 4 mg IV Q6HR PRN PRN Reason: Nausea And Vomiting Last Admin: 02/03/25 08:12 Dose: 4 mg Documented By: ALEA Ondansetron HCl (Ondansetron 4 Mg/2 Ml Inj) 4 mg IV NOW ONE Stop: 02/03/25 12:33 Last Admin: 02/03/25 12:43 Dose: 4 mg Documented By: JOSE Pantoprazole Sodium (Pantoprazole 40 Mg Vial) 40 mg IV NOW ONE Stop: 02/03/25 07:45 Last Admin: 02/03/25 08:12 Dose: 40 mg Documented By: ALEA Potassium Chloride (Potassium Chloride 20 Meq Tab) 40 meq PO NOW ONE Stop: 02/03/25 09:15 Last Admin: 02/03/25 09:24 Dose: 40 meq Documented By: ALEA Vital Signs Vital signs: Vital Signs - 8 hr 02/03/25 07:26 Temperature 97.8 F Pulse Rate 86 Respiratory Rate 16 Blood Pressure 131/94 H Pulse Oximetry 97 Oxygen Delivery Method Room Air MDM - Abdominal Pain Lab Data 02/03/25 07:50 02/03/25 07:50 Labs: Lab Results 02/03/25 02/03/25 Range/Units 07:50 12:32 WBC 2.5 L (4.5-11.0) X10^3/uL RBC 3.92 L (4.5-5.9) X10^6/uL Hgb 12.5 L (13.5-17.5) g/dL Hct 35.1 L (41-53) % MCV 89.7 (80-100) fL MCH 31.9 (26-34) PG MCHC 35.6 (30-36) % RDW 15.5 H (11.6-14.8) % Plt Count 122 L (150-400) X10^3/uL Neut % (Auto) 48.4 L (50-75) % Lymph % (Auto) 36.9 (25-40) % [place] % (Auto) 13.0 (3-14) % Eos % (Auto) 1.2 L (2-4) % Baso % (Auto) 0.5 (0-2) % Neut # (Auto) 1200 L (8993-5142) /uL Lymph # (Auto) 900 L (0645-4167) /uL [place] # (Auto) 300 (0-900) /uL Eos # (Auto) 0 (0-450) /uL Baso # (Auto) 0 (0-100) /uL Sodium 135 L (137-145) mmol/L Potassium 3.2 L (3.4-5.1) mmol/L Chloride 107 (98-107) mmol/L Carbon Dioxide 24 (22-32) mmol/L BUN 34 H (9-20) mg/dL Creatinine 0.90 (0.66-1.25) mg/dL Estimated GFR > 60 (>60) mL/min BUN/Creatinine Ratio 37.8 H (6-22) Glucose 134 H (70-99) mg/dL Calcium 7.5 L (8.4-10.2) mg/dL Phosphorus 2.6 (2.3-3.7) mg/dL Magnesium 1.7 (1.6-2.3) mg/dL Total Bilirubin 0.8 (0.2-1.3) mg/dL AST 55 (17-59) IU/L ALT 30 (<50) IU/L Alkaline Phosphatase 53 (38-126) U/L Total Protein 5.6 L (6.3-8.2) g/dL Albumin 3.1 L (3.5-5.0) g/dL Globulin 2.5 (1.7-4.1) g/dL Albumin/Globulin Ratio 1.2 (1.0-2.8) Lipase 414 H (23-300) U/L Stl C. cayetanensis PCR Not detected (Not Detect) Stool Rotavirus (PCR) Not detected (Not Detect) Stool Adenovirus (PCR) Not detected (Not Detect) Stool Astrovirus (PCR) Not detected (Not Detect) Stool Cryptosporidium PCR Not detected (Not Detect) Stl E.coli Shiga Tox PCR Not detected (Not Detect) St Sh/Enteroin Ecoli PCR Not detected (Not Detect) Stl Enterotoxigenic E PCR Not detected (Not Detect) Stool EPEC (PCR) Not detected (Not Detect) Stl E. histolytica PCR Not detected (Not Detect) Stool Giardia Lamblia PCR Not detected (Not Detect) Stool Sapovirus (PCR) Not detected (Not Detect) Stl P. shigelloides PCR Not detected (Not Detect) St Y.enterocolitica PCR Not detected (Not Detect) Stool Vibrio (PCR) Not detected (Not Detect) Stl Vibrio cholerae PCR Not detected (Not Detect) Stl Enteroaggr Ecoli PCR Not detected (Not Detect) Stl Norovirus GI/GII PCR Detected (Not Detect) Campylobacter (PCR) Not detected (Not Detect) C. difficile Tox (PCR) Not detected (Not Detect) Salmonella (PCR) Not detected (Not Detect) Imaging Data CT scan - abdomen/pelvis: Radiologist's Impression: PROCEDURE: CT ABDOMEN PELVIS W CON COMPARISON: [facility], CT, CT ABDOMEN PELVIS W CON, 01/15/2025, 18:22. FINDINGS: Image quality: Diagnostic. Lower Chest: No significant findings. ABDOMEN: Liver: No solid mass. Gallbladder: No radiopaque gallstones or wall thickening. Biliary ducts: No biliary dilation. Pancreas: Heterogeneously hypodense appearance of the pancreas with lobulated contour unchanged from prior study. No pancreatic ductal dilatation. Spleen: There is splenomegaly, no discrete splenic lesion. Adrenal Glands: No adrenal nodules. Kidneys and Ureters: No hydronephrosis. No solid mass. No complex renal cystic lesion which requires follow up. Stomach and Bowel: There is long segmental small bowel wall thickening involving proximal to mid small bowel loops predominantly in left upper quadrant. Adjacent mesenteric fat stranding is seen. Fluid-filled small bowel and colon loops. Questionable distal sigmoid colon wall thickening is also seen. No abscess collection. Peritoneum: No abnormal intraperitoneal fluid. No free air. Ventral Wall: No significant ventral hernia. Abdominal Nodes: No retroperitoneal or mesenteric adenopathy by size criteria. Vessels: Aorta and inferior vena cava are normal in size. PELVIS: Pelvic Organs: Unremarkable. Bladder: No bladder wall thickening, accounting for underdistention. Pelvic Nodes: No enlarged lymph nodes. Miscellaneous: No inguinal hernias are seen. Bones: No aggressive osseous abnormality. No acute vertebral body compression fracture. IMPRESSION: 1. Interval development of small bowel and colon wall thickening as described above concerning for enterocolitis. There is no abscess collection. No free fluid or free air. Mild fluid filling of small bowel and colon loops concerning for diarrhea state suggest clinical correlation. 2. Heterogeneous appearance of pancreas unchanged from prior study and likely related to clinical history of pancreatic cancer. 3. Other chronic findings are unchanged from prior study. Dictated by: Ventura Swain M.D. on 02/03/2025 at 9:11 Approved by: Ventura Swain M.D. on 02/03/2025 at 9:15 [facility] Narrative Medical decision making narrative: Patient is a 60-year-old man with history of PEG pancreatic cancer status post chemotherapy undergoing gamma knife radiation therapy and diverticulitis with recent episode of diverticulitis on 01/15/2025 without complete resolution presents today with worsening gastrointestinal symptoms. Differential diagnosis: Diverticulitis, c diff colitis from antibiotic use, pyelonephritis, nephrolithiasis, infectious colitis, appendicitis, small-bowel obstruction, mesenteric ischemia, colon cancer, worsening pancreatic cancer to include metastases, radiation necrosis, less likely ACS, testicular torsion, abdominal aortic aneurysm. Medical record reviewed: His previous records were reviewed to include recent ER visit on 01/15/2025, 06/03/2024, 12/09/2023, 10/27/2023 to include the corresponding CT abdominal scans performed at that time. 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 Plan: Labs, pain control, imaging. Labs: CBC with leukopenia (WBC 2.5) and neutropenia (neut 1200), lymphopenia (lymph 900), no anemia, thrombocytopenia (plt 122). Chem panel with mild hyponatremia (Na 135), hypokalemia (K 3.2), elevated BUN (34), creatinine normal (Cr 0.90), hypocalcemia (Ca 7.5), hypoalbuminemia (albumin 3.1), elevated lipase (414). Normal phos and mag. Imaging: CT abdomen and pelvis with small amount and colonic wall thickening, no discrete abscess collection, no free fluid or free air. No bowel obstruction. ER Course: On initial evaluation, the patient was in no acute distress with normal vital signs, and he did not meet SIRS criteria. Physical examination was largely benign aside from mild left lower quadrant tenderness. Diagnostic workup, as detailed above, was notable for stool testing positive for norovirus. Given these findings, I discussed with the patient that colitis secondary to norovirus is a more consistent explanation for his persistent symptoms, particularly in light of the fact that he had reinitiated Augmentin on Wednesday without improvement. He was advised to discontinue Augmentin and transition to supportive care appropriate for norovirus, as antibiotics would not provide benefit in this context. The patient declined additional antiemetics, stating he already has adequate analgesic and antiemetic medications available through his cancer treatment regimen. He expressed understanding of the plan. Discharge Plan Departure Patient Disposition: Home Clinical Impression: Acute gastroenteropathy due to Norovirus, Abdominal pain, Nausea & vomiting, Diarrhea, Neutropenia, Thrombocytopenia Malignant neoplasm of pancreas Qualifiers: Pancreatic malignancy location: unspecified Qualified Code(s): C25.9 - Malignant neoplasm of pancreas, unspecified Instructions: Norovirus Infection, DI for Norovirus Infection Activity Restrictions/Additional Instructions: You were seen in the emergency department for abdominal pain, nausea, and diarrhea. In the ER: -- Workup was completed and you were diagnosed with norovirus. Please read the discharge instructions on norovirus. -- Wash her hands thoroughly as norovirus is past via fecal oral route. -- Additionally, your white blood cell count (WBC 2.5), neutrophils (48.4), and platelets (122) were low. As discussed, your immune system is weakened and I recommend that you wear a mask protect yourself from infection while in public. Plan: -- STOP augmentin. I believe that you have been adequately treated for your diverticulitis in your symptoms are now due to norovirus (which does not respond to antibiotics). This is probably why you were getting better even though you are on antibiotics over the last 5 days. -- Diet as tolerated -- Hydrate with electrolytes to prevent dehydration and electrolyte loss in diarrhea -- Continue your pain medications and anti-nausea medications previously prescribed Thank you for trusting me with your care today. Happy holidays. -- Do Prescriptions: No Action MenQuadfi (PF) 10 mcg/0.5 mL solution 0.5 ml IM ONCE Qty: 0.5 0RF Rx Instructions: as a single dose Bexsero 50-50-50-25 mcg/0.5 mL syringe 0.5 ml IM ONCE Qty: 0.5 1RF dexamethasone 4 mg tablet PO Disabled Parking Permit See Rx Instructions .ROUTE .COMPLEX Qty: 1 0RF Rx Instructions: I find this patient to be medically disabled and qualify for disabled parking as indicated and signed on the accompanying disabled parking application for individuals. multivitamin Tablet 1 tab PO DAILY kurwvh-ardbfqft-jclrawp 36,000-114,000- 180,000 unit capsule,delayed release(DR/EC) 2 cap PO TID Rx Instructions: administer with snacks Creon 36,000-114,000- 180,000 unit capsule,delayed release(DR/EC) 4 cap PO TID carvedilol 25 mg tablet 50 mg PO BID Qty: 90 3RF Rx Instructions: must administer with a meal/food alprazolam 1 mg tablet 2 mg PO BEDTIME mirtazapine 7.5 mg tablet 7.5 mg PO BEDTIME gabapentin 300 mg capsule 600 mg PO BEDTIME amoxicillin-pot clavulanate 875-125 mg tablet 1 tab PO BID Qty: 20 0RF nifedipine 60 mg tablet extended release 60 mg PO BID Referrals: Joana Zapata MD [Primary Care Provider, Family Practice] Stand Alone Forms: Patient Portal/API
[2025-02-03] MEDS: PANTOPRAZOLE 40 MG VIAL IV (08:12)
[2025-02-03] MEDS: ONDANSETRON 4 MG/2 ML INJ IV ×2 (08:12→12:43)
[2025-02-03 08:17] LABS: Add Manual Diff / Slide Review NO; Hematocrit 35.1 % (41-53); Hemoglobin 12.5 g/dL (13.5-17.5); Lymphocytes Absolute Auto 900 /uL (1100-4500); Mean Corpuscular HGB Conc 35.6 % (30-36); Mean Corpuscular Hemoglobin 31.9 PG (26-34); Mean Corpuscular Volume 89.7 fL (80-100); Platelet Count 122 X10^3/uL (150-400)
[2025-02-03 08:33] LABS: Alanine Aminotransferase 30 IU/L (<50); Albumin 3.1 g/dL (3.5-5.0); Albumin Globulin Ratio 1.2 (1.0-2.8); Alkaline Phosphatase 53 U/L (38-126); Blood Urea Nitrogen 34 mg/dL (9-20); Calcium 7.5 mg/dL (8.4-10.2); Carbon Dioxide 24 mmol/L (22-32); Chloride 107 mmol/L (98-107); Estimated Glomerular Filt Rate > 60 mL/min (>60); Globulin 2.5 g/dL (1.7-4.1); Glucose 134 mg/dL (70-99); HEMOLYSIS 26 (0-50); Lipase 414 U/L (23-300); Potassium 3.2 mmol/L (3.4-5.1); Sodium 135 mmol/L (137-145); Total Protein 5.6 g/dL (6.3-8.2)
[2025-02-03 09:11] LABS: Magnesium 1.7 mg/dL (1.6-2.3); Phosphorous 2.6 mg/dL (2.3-3.7)
[2025-02-03] MEDS: POTASSIUM CHLORIDE 20 MEQ TAB 40 MEQ PO (09:24)
[2025-02-03] MEDS: SODIUM CHLORIDE 0.9% 1,000 ML 1000 ML IV (09:38)
[2025-02-03 13:59] LABS: Clostridium difficile toxin AB Not Detected (Not Detect); Enteroaggregative E.coli Not Detected (Not Detect); Enteropathogenic E.coli Not Detected (Not Detect); Enterotoxigenic E.coli It/st Not Detected (Not Detect); Plesiomonsa shigelloides Not Detected (Not Detect); Shiga-like toxin-prod E.coli Not Detected (Not Detect)
== END 2025-02-03 14:58 | disposition home or self-care (01) ==
PROVIDERS: Emergency Provider Student in an Organized Health Care Education/Training Program; PCP Family Medicine; Referring Provider Family Medicine
DX: A08.11 Acute gastroenteropathy due to Norwalk agent (principal); D70.9 Neutropenia, unspecified; D69.6 Thrombocytopenia, unspecified; C25.9 Malignant neoplasm of pancreas, unspecified; R10.9 Unspecified abdominal pain; Z87.19 Personal history of other diseases of the digestive system
CPT/HCPCS: 36415; 74177; 80053; 83690; 83735; 84100; 85025; 87507; 96361; 96374; 96375; 96376; 99284; J1171; J1642; J2405; J2470; J7030; Q9967

== ENCOUNTER 2025-02-09 03:13 | Emergency (ER) | payer OTHER, SELFPAY ==
--- OUTSIDE RECORDS SUMMARY | 2024-09-20 14:00 | XMS_ITS | Encounter Summary ---
Author Organization [facility] Address [address] [place] [address] Care Team Providers Care Director Of Market Intelligence Name Role Phone Pcp, None Selected Primary Care Provider Unavail able Reason for Visit * Reason Comments Follow-up Encounter Details Date Type Department Care Team (Late st Contact Info) Description 09/20/2024 3:00 PM PDT Office Visit [facility] Nephrology [place] [address], [address] [place], [place] [phone] Fabio Fernandez MD [address] [place], [place] [phone] AZEEM (acute kidney injury) (Primary Dx) Social [...] in follow-up for his second visit with [place] where he is now 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 This is being managed by his outside heme-onc team and this is his second visit with [place]. His presents labs from September 14 showing an improvement in his serum creatinine down to 1.36 and a potassium of 4.9. Labs from [place] from August 23 showed a creatinine of 1.46 with aK of 5.4 patient's energy level is very good unfortunately is hypertensive and forgot his blood pressure meds today which include Coreg 25 mg 2 times a day and nifedipine 60 mg daily he is voiding well no rashes no edema no headaches blurred vision syncope or presyncope. 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 Past Medical History: Diagnosis Date Anxiety Arthritis GERD (gastroesophageal reflux disease) 2014 Hip pain HL (hearing loss) 1999 Hyperlipidemia Lung cancer (CMS/HCC) Prostate enlargement Tinnitus 2004 Past Surgical History: Procedure Laterality Date ANTERIOR CERVICAL DISCECTOMY W/ FUSION 2016 [place] EGD INTRMURAL NEEDLE ASPIR/BIOP ALTERED ANATOMY N/A 07/16/2023 Procedure: UPPER GASTROINTESTINAL ENDOSCOPY OF ESOPHAGUS, STOMACH, DUODENUM AND JEJUNUM WITH ENDOSCOPIC ULTRASOUND GUIDED INTRAMURAL FINE NEEDLE BIOPSY; Surgeon: Matthias Simon MD; Location: [facility] GI; Service: Gastroenterology [place] INSJ TUNNELED CTR VAD W/SUBQ PORT AGE 5 YR/> N/A 08/10/2023 Procedure: INSERTION OF TUNNELED CENTRALLY INSERTED CENTRAL VENOUS CATHETER WITH SUBCUTANEOUS PORT;Surgeon: Pavan Neville MD; Location: [facility] OR; Service: General Family History Problem [...] as needed for nausea or vomiting pancrelipase, Zgi-Bjbc-Lpaq, (Creon) 24,000-76,000 -120,000 unit capsule Take 2 [...] Primary documented in this encounter Care Teams Director Of Market Intelligence Relationship Specialty Start Date End Date Pcp, None Selected PCP - General 06/01/24 documented as of this encounter
[2024-11-07 15:53] VITALS: PULSE 117; RESP 33; O2SAT 100; BMI 31.4
[2025-02-09 03:19] VITALS: BP 106/78; PULSE 100; RESP 16; TEMP 37.2; O2SAT 99; BMI 27.8
[2025-02-09] MEDS: ALBUTEROL HFA PREPACK 1 BOX MISC (03:56)
[2025-02-09 04:10] VITALS: PULSE 84; O2SAT 95
[2025-02-09 04:30] LABS: Influenza A - CEPHEID Flu A NEGATIVE (NEGATIVE); Influenza B - CEPHEID Flu B NEGATIVE (NEGATIVE)
[2025-02-09 04:51] LABS: COVID-19 CEPHEID 4-PLEX PCR Negative (Negative)
[2025-02-09 05:52] VITALS: BP 114/75; PULSE 77; RESP 16; O2SAT 99
--- NOTE | 2025-02-09 08:10 | ED.URI ---
HPI - URI/Sore Throat General Chief Complaint: Upper Respiratory Symptoms Stated Complaint: Cough, Congestion, Headache Time Seen by Provider: 02/09/25 03:21 Source: patient Mode of arrival: Ambulatory History of Present Illness HPI Narrative: Patient is a 60-year-old man who presented to the ER has a 2 day history of upper respiratory symptoms. History significant for stage IV pancreatic cancer on chemotherapy, recent norovirus and diverticulitis infection, hypertension, GERD. Patient reports 2 day history of cough productive of thick mucus, congestion, and rhinorrhea causing him no have anxiety. He otherwise denies any fevers, some nausea, no vomiting. Related Data Home Medications ?Medication ?Instructions ?Recorded ?Confirmed alprazolam 1 mg tablet 2 mg PO BEDTIME 06/27/24 01/16/25 gabapentin 300 mg capsule 600 mg PO BEDTIME 06/27/24 01/16/25 mirtazapine 7.5 mg tablet 7.5 mg PO BEDTIME 06/27/24 01/16/25 opdbbp-bmqncvtk-bzttgdc 2 cap PO TID 07/18/24 01/16/25 36,000-114,000-180,000 unit capsule,delay rel hlojpu-yyqxjlvr-nrihdps 4 cap PO TID 07/18/24 01/16/25 36,000-114,000-180,000 unit capsule,delay rel (Creon) multivitamin 1 tab PO DAILY 07/18/24 01/16/25 nifedipine 60 mg tablet,extended 60 mg PO BID 11/07/24 01/16/25 release dexamethasone 4 mg tablet mg PO 01/16/25 01/16/25 Previous Rx's ?Medication ?Instructions ?Recorded Disabled Parking Permit See Rx Instructions .Route 09/09/23 .COMPLEX #1 unit carvedilol 25 mg tablet 50 mg (2 x 25 mg) PO BID #90 tabs 07/27/24 mening vac A,C,Y,W135,tet (PF) 10 0.5 ml IM ONCE #0.5 mL 10/17/24 mcg/0.5 mL IM solution (MenQuadfi (PF)) meningococcal B vac,4-cmp 50 0.5 ml IM ONCE #0.5 mL 10/17/24 mcg-50 mcg-50 mcg-25 mcg/0.5mL IM syringe (Bexsero) amoxicillin 875 mg-potassium 1 tab PO BID #20 tabs 01/15/25 clavulanate 125 mg tablet Allergies Allergy/AdvReac Type Severity Reaction Status Date / Time haloperidol (From Haldol) AdvReac Severe Agitated Verified 01/15/25 17:26 Review of Systems Review of Systems Narrative: See HPI. Patient History Medical History Bilateral shoulder pain Radiculopathy, cervicothoracic region Neoplasm related pain Malignant neoplasm of pancreas GERD (gastroesophageal reflux disease) Bilateral hip pain Greater trochanteric bursitis of both hips Right hip pain Left hip pain Arthritis of left acromioclavicular joint Impingement of right shoulder Social History marital status: household members: spouse lives independently: Yes occupational status: employed Smoking Status: Former smoker alcohol intake: never substance use type: marijuana Smoking Status: Former smoker tobacco type: cigarettes alcohol intake frequency: 0-2 drinks per day Exam Narrative Exam Narrative: Vitals: Afebrile, tachycardic (HR 100), all other vitals within normal range Gen: Well-developed, well-nourished, no acute distress HEENT: No visible rhinorrhea, moist mucous membranes, posterior oropharynx mildly erythematous without any exudates Cards: Tachycardic, no murmurs, rubs or gallops Pulm: Normal work of breathing, mild wheezing in left upper lobe, good air movement Abd: Nondistended, nontender Ext: No peripheral edema in bilateral lower extremity Neuro: A&O x 4, cranial nerves grossly intact, moving all 4 extremities Psych: Appropriate Initial Vital Signs Initial Vital Signs: Vital Signs Temperature 98.9 F 02/09/25 03:19 Pulse Rate 100 H 02/09/25 03:19 Respiratory Rate 16 02/09/25 03:19 Blood Pressure 106/78 02/09/25 03:19 Pulse Oximetry 99 02/09/25 03:19 Oxygen Delivery Method Room Air 02/09/25 03:19 Course Orders Ordered: ED Orders 02/09/25 03:34 Covid-19 + FLU A/B + RSV - PCR Stat Discontinued Medications Albuterol (Albuterol Hfa Mdi 60 Puff/8 Gm Inhaler (Covid Only)) 2 puff INH NOW ONE Stop: 02/09/25 03:43 Last Admin: 02/09/25 04:19 Dose: Not Given Documented By: MIKI Albuterol (Albuterol Hfa Prepack) 1 box MISC DIRECTED ONE Stop: 02/09/25 03:51 Last Admin: 02/09/25 03:56 Dose: 1 box Documented By: TIFFANIE Guaifenesin (Guaifenesin Er 600 Mg Tab) 600 mg PO NOW ONE Stop: 02/09/25 03:43 Last Admin: 02/09/25 04:01 Dose: 600 mg Documented By: MIKI Vital Signs Vital signs: Vital Signs - 8 hr 02/09/25 03:19 02/09/25 03:56 02/09/25 04:10 Temperature 98.9 F Pulse Rate 100 H 84 Respiratory Rate 16 Blood Pressure 106/78 Pulse Oximetry 99 95 Oxygen Delivery Method Room Air Room Air Room Air 02/09/25 05:52 Temperature Pulse Rate 77 Respiratory Rate 16 Blood Pressure 114/75 Pulse Oximetry 99 Oxygen Delivery Method Room Air MDM - URI/Sore Throat Lab Data Labs: Lab Results 02/09/25 Range/Units 03:34 SARS-CoV-2 (PCR) Negative (Negative) Influenza A (RT-PCR) Flu a negative (NEGATIVE) Influenza B (RT-PCR) Flu b negative (NEGATIVE) RSV (PCR) Negative (Negative) MDM Narrative Medical decision making narrative: 60-year-old man who presented to the ER has a 2 day history of upper respiratory symptoms. Differential diagnosis: Viral versus bacterial URI, COVID, influenza, versus other. Labs: Viral swab negative for influenza, COVID, RSV. Imaging: None ED Course: On evaluation, patient was mildly tachycardic, all vitals within normal range. His physical exam findings was significant for very mild end expiratory wheezing in left upper lobe, with good air movement in all other lobes. Given that patient was afebrile and he had no decrease air sounds, did not believe imaging was warranted. He was given Mucinex and albuterol and was evaluated an hour and half later and stated his symptoms were greatly improve and he was not anxious anymore. He was discharged with albuterol, recommendation for swux-sbv-utcjjmd Mucinex, Tylenol and Motrin as needed and discharged home in stable condition. Discharge Plan Departure Patient Disposition: Home Clinical Impression: URI (upper respiratory infection) Activity Restrictions/Additional Instructions: You were seen in the emergency department for cough cough and congestion. In the ER: -- You were given albuterol and Mucinex and felt symptomatically better Plan: -- Continue home meds as previously prescribed -- Take albuterol as prescribed and as needed for shortness of breath or wheezing -- Take over the counter Mucinex for congestion and cough -- If you develop headaches, muscle aches, or fevers, you can take Motrin and/or Tylenol as needed Return to the ER if you develop any worsening symptoms Prescriptions: No Action MenQuadfi (PF) 10 mcg/0.5 mL solution 0.5 ml IM ONCE Qty: 0.5 0RF Rx Instructions: as a single dose Bexsero 50-50-50-25 mcg/0.5 mL syringe 0.5 ml IM ONCE Qty: 0.5 1RF dexamethasone 4 mg tablet PO Disabled Parking Permit See Rx Instructions .ROUTE .COMPLEX Qty: 1 0RF Rx Instructions: I find this patient to be medically disabled and qualify for disabled parking as indicated and signed on the accompanying disabled parking application for individuals. multivitamin Tablet 1 tab PO DAILY kuobuv-ocguxdad-wewfpbc 36,000-114,000- 180,000 unit capsule,delayed release(DR/EC) 2 cap PO TID Rx Instructions: administer with snacks Creon 36,000-114,000- 180,000 unit capsule,delayed release(DR/EC) 4 cap PO TID carvedilol 25 mg tablet 50 mg PO BID Qty: 90 3RF Rx Instructions: must administer with a meal/food alprazolam 1 mg tablet 2 mg PO BEDTIME mirtazapine 7.5 mg tablet 7.5 mg PO BEDTIME gabapentin 300 mg capsule 600 mg PO BEDTIME amoxicillin-pot clavulanate 875-125 mg tablet 1 tab PO BID Qty: 20 0RF nifedipine 60 mg tablet extended release 60 mg PO BID Referrals: Joana Zapata MD [Primary Care Provider, Family Practice] Stand Alone Forms: Patient Portal/API
== END 2025-02-09 06:31 | disposition home or self-care (01) ==
PROVIDERS: Emergency Provider Student in an Organized Health Care Education/Training Program; PCP Family Medicine
DX: J06.9 Acute upper respiratory infection, unspecified (principal); R51.9 Headache, unspecified; I10 Essential (primary) hypertension; R09.89 Other specified symptoms and signs involving the circulatory and respiratory systems
CPT/HCPCS: 87637; 99283; A9270

== ENCOUNTER → 2025-02-13 14:40 | Outpatient (CLI) | payer OTHER, SELFPAY ==
[2024-11-07 15:53] VITALS: PULSE 117; RESP 33; O2SAT 100; BMI 31.4
[2025-02-13 16:04] LABS: Alanine Aminotransferase 50 IU/L (<50); Albumin 3.0 g/dL (3.5-5.0); Albumin Globulin Ratio 1.3 (1.0-2.8); Alkaline Phosphatase 61 U/L (38-126); Blood Urea Nitrogen 23 mg/dL (9-20); Calcium 7.8 mg/dL (8.4-10.2); Carbon Dioxide 25 mmol/L (22-32); Chloride 106 mmol/L (98-107); Estimated Glomerular Filt Rate > 60 mL/min (>60); Globulin 2.4 g/dL (1.7-4.1); Glucose 192 mg/dL (70-99); HEMOLYSIS < 15 (0-50); Potassium 3.4 mmol/L (3.4-5.1); Sodium 139 mmol/L (137-145); Total Protein 5.4 g/dL (6.3-8.2)
== END ==
PROVIDERS: PCP Family Medicine; Referring Provider Internal Medicine Hematology & Oncology; Visit Provider Internal Medicine Hematology & Oncology
DX: C25.1 Malignant neoplasm of body of pancreas (principal); E83.40 Disorders of magnesium metabolism, unspecified
CPT/HCPCS: 36415; 80053